=== PATIENT | male | born 1930 | race Caucasian/White ===

== ENCOUNTER 2016-08-30 12:56 | Emergency (ER) | payer OTHER, BC ==
--- NOTE | 2016-08-30 13:21 | UCPHY ---
H & P Patient Type: Established Chief Complaint Nursing Narrative: congestion and cough started on wednesday, denies fevers, wheezing per daughter, states increased confusion and weakness, decreased appetite. Time Seen by Provider: 08/30/16 13:19 HPI/ROS: 86-year-old male presents from a correction with his daughter for complaint of cough, nasal congestion generalized fatigue of approximately 4-5 days duration. Review of systems Patient with generalized fatigue, unable to give his own review of systems Primarily taken from his daughter No current fever no current respiratory distress Source: Patient, Family Exam Limitations: Clinical condition - Personal History Current Tetanus/Diphtheria Vaccine: Yes - Medical/Surgical History Hx Asthma: No Hx Chronic Respiratory Disease: No Hx Diabetes: No Hx Cardiac Disease: Yes Hx Renal Disease: Yes Hx Cirrhosis: No Hx Alcoholism: No Hx HIV/AIDS: No Hx Splenectomy or Spleen Trauma: No Other PMH: Colitis, CKD stage3, Chronic sinus, HTN, Cardiac stents x2, Essential tremor, CVA, arthrisis, Color blind, RED CL[place] - Family History Significant Family History: No pertinent family hx - Social History Smoking Status: Never smoked Alcohol Use: None Drug Use: None Additional Social History: Lives in a correction - Physical Exam Exam: 86-year-old male alert, no respiratory distress, afebrile Atraumatic normocephalic OP dry mucosa no exudate no erythema in throat Right nares-some crusted blood no erythema no septal hematoma, left nares with off-white yellowish mucus Neck supple, no lymphadenopathy Lungs clear to auscultation bilaterally Heart regular rate and rhythm without murmur rub or gallop Abdomen nondistended bowel sounds present soft nontender Extremities are no edema, chronic venous stasis discoloration, calves nontender Skin no rash Neuro alert, at baseline per daughter Gait intact, moving all 4s Constitutional: Initial Vital Signs Temperature (C) 36.4 C 08/30/16 13:09 Heart Rate 65 08/30/16 13:09 Respiratory Rate 28 H 08/30/16 13:09 Blood Pressure 166/57 H 08/30/16 13:09 O2 Sat (%) 97 08/30/16 13:09 O2 Delivery Mode Room Air Allergies/Adverse Reactions: ibuprofen [From Motrin] Allergy (Verified 08/30/16 13:08) Home Medications: Medication Instructions Recorded Acetaminophen 08/30/16 Allopurinol 08/30/16 Aspirin 08/30/16 Atorvastatin Calcium 08/30/16 Azelastine HCl 08/30/16 Biotin 08/30/16 Cristopher-Gest 08/30/16 Calcitriol 08/30/16 Certavite Sr-Antioxidant Tab 08/30/16 Erythromycin 08/30/16 Feosol 08/30/16 Flonase Nasal [place] 08/30/16 Folic Acid 08/30/16 Furosemide 08/30/16 Losartan Potassium 08/30/16 Miralax 17 gm (*) 08/30/16 Omeprazole 08/30/16 Potassium Chloride 08/30/16 Ranitidine HCl 08/30/16 Tamsulosin HCl 08/30/16 Visine (*) 08/30/16 levOFLOXACIN [Levaquin] 250 mg PO DAILY #8 tablet 08/30/16 Medical Decision Making - Diagnostics Imaging: Chest x-ray consistent with bronchitis cannot rule out an early left lower lobe infiltrate ED Course/Re-evaluation: Patient seen and evaluated for cough, nasal congestion of approximately 4-5 days duration and generalized fatigue as well as a poor appetite Differential diagnosis Bronchitis, influenza, pneumonia, viral syndrome Laboratories CBC within normal limits for this patient with chronic anemia BMP also baseline for his chronic kidney disease Influenza negative Chest x-ray consistent with bronchitis Patient's exam significant for a good oxygen saturation on room air as well as lungs clear to auscultation bilaterally positive nasal discharge Impression Bronchitis with mild dehydration Cannot rule out an early pneumonia Plan Given 250 cc normal saline in the urgent care Discharge home to correction with prescription for Levaquin 500 mg today, 250 mg for the next 6 days Dose adjusted based on GFR of 23 In family advised to have follow-up with primary care physician in the next 1-2 days - Data Points Laboratory Results: Laboratory Results 08/30/16 13:45 08/30/16 13:45 08/30/16 08/30/16 14:10 13:45 WBC 5.67 10^3/uL (3.80-9.50) RBC 2.88 L 10^6/uL (4.40-6.38) Hgb 9.5 L g/dL (13.7-17.5) Hct 27.5 L % (40.0-51.0) MCV 95.5 fL (81.5-99.8) MCH 33.0 pg (27.9-34.1) MCHC 34.5 g/dL (32.4-36.7) RDW 15.1 % (11.5-15.2) Plt Count 193 10^3/uL (150-400) MPV 9.7 fL (8.7-11.7) Neut % (Auto) 67.3 % (39.3-74.2) Lymph % (Auto) 21.5 % (15.0-45.0) [place] % (Auto) 7.9 % (4.5-13.0) Eos % (Auto) 1.8 % (0.6-7.6) Baso % (Auto) 0.4 % (0.3-1.7) Nucleat RBC Rel Count 0.0 % (0.0-0.2) Absolute Neuts (auto) 3.82 10^3/uL (1.70-6.50) Absolute Lymphs (auto) 1.22 10^3/uL (1.00-3.00) Absolute Monos (auto) 0.45 10^3/uL (0.30-0.80) Absolute Eos (auto) 0.10 10^3/uL (0.03-0.40) Absolute Basos (auto) 0.02 10^3/uL (0.02-0.10) Absolute Nucleated RBC 0.00 10^3/uL (0-0.01) Immature Gran % 1.1 % (0.0-1.1) Immature Gran # 0.06 10^3/uL (0.00-0.10) Sodium 138 mEq/L (134-144) Potassium 4.0 mEq/L (3.5-5.2) Chloride 103 mEq/L (97-110) Carbon Dioxide 23 mEq/l (22-31) Anion Gap 12 mEq/L (8-16) BUN 43 H mg/dL (7-23) Creatinine 2.6 H mg/dL (0.7-1.3) Estimated GFR 23 Glucose 96 mg/dL (70-100) Calcium 9.9 mg/dL (8.5-10.4) Magnesium 2.0 mg/dL (1.6-2.3) Total Bilirubin 1.4 mg/dL (0.1-1.4) AST 21 IU/L (17-59) ALT 16 L IU/L (21-72) Alkaline Phosphatase 95 IU/L (38-126) Total Protein 6.3 g/dL (6.3-8.2) Albumin 3.4 L g/dL (3.5-5.0) Urine Color YELLOW Urine Appearance CLEAR Urine pH 5.5 (5.0-7.5) Ur Specific [place] 1.020 (1.002-1.030) Urine Protein 2+ H (NEGATIVE) Urine Ketones NEGATIVE (NEGATIVE) Urine Blood TRACE H (NEGATIVE) Urine Nitrate NEGATIVE (NEGATIVE) Urine Bilirubin NEGATIVE (NEGATIVE) Urine Urobilinogen 0.2 EU (0.2-1.0) Ur Leukocyte Esterase NEGATIVE (NEGATIVE) Urine RBC 1-3 /hpf (0-3) Urine WBC 0-1 /hpf (0-3) Ur Epithelial Cells TRACE /lpf (NONE-1+) Amorphous Sediment TRACE /hpf (NONE-1+) Hyaline Casts 10-15 H /lpf (0-1) Granular Casts 1-3 H /lpf (0-1) Urine Mucus 1+ /lpf (NONE-1+) Urine Glucose NEGATIVE (NEGATIVE) Influenza Typ A,B (DFA) NEGATIVE FOR FLU (NEGATIVE) Medications Given: Discontinued Medications Sodium Chloride (Ns) 250 mls @ 0 mls/hr IV ONCE ONE PRN Reason: TKO Stop: 08/30/16 14:36 Last Admin: 08/30/16 14:40 Dose: 250 mls Departure - Departure Disposition: Home, Routine, Self-Care Clinical Impression: Bronchitis, Mild dehydration Condition: Good Instructions: Acute Bronchitis (ED) Additional Instructions: Follow up with PCP in 1-2 days. Referrals: Jovani Kenyon MD [Primary Care Provider] - As per Instructions Prescriptions: levOFLOXACIN [Levaquin] 250 mg PO DAILY #8 tablet - PQRS PQRS Measurement: 134: Depression screening and followup, PRIME MD-PHQ2 (12 years and older) Over the last 2 weeks, how often have you been bothered by any of the following problems? 1. Feeling down, depressed, or hopeless? 2. Little interest or pleasure in doing things? Patient answered no to both 1 and 2 130: Documentation of medications. Reviewed all patient medications, doses, route and frequency. 226: Do you smoke? No. 47: 65 and older: Advanced care planning. Patient designates surrogate decision maker as spouse.. [Patient has advanced directive.] 51: 18 years old and older with diagnosis of COPD, spirometry performance. [Patient has no history of COPD 52: 18 years old and older with COPD and symptoms of COPD or FEV1<60% predicted prescribed a B Agonist. [Spirometry not performed; equipment not available.]
[2016-08-30 13:55] LABS: % IMMATURE GRANULYOCYTES 1.1 % (0.0-1.1); ABSOLUTE IMMATURE GRANULOCYTES 0.06 10^3/uL (0.00-0.10); ADD DIFF? NO; ADD MORPH? NO; ADD SCAN? NO; ATYPICAL LYMPHOCYTE FLAG 20 (0-99); FRAGMENT RBC FLAG 0 (0-99); HEMATOCRIT 27.5 % (40.0-51.0); HEMOGLOBIN 9.5 g/dL (13.7-17.5); LEFT SHIFT FLG 10 (0-99); LIPEMIA HEMOLYSIS FLAG 90 (0-99); MEAN CELL HEMOGLOBIN CONCENTR. 34.5 g/dL (32.4-36.7); MEAN CELL VOLUME 95.5 fL (81.5-99.8); MEAN PLATELET VOLUME 9.7 fL (8.7-11.7); PLATELET CLUMPS FLAG 0 (0-99); PLATELET COUNT 193 10^3/uL (150-400); RED BLOOD CELL COUNT 2.88 10^6/uL (4.40-6.38); RED CELL DISTRIBUTION WIDTH 15.1 % (11.5-15.2)
[2016-08-30 14:08] LABS: ALBUMIN 3.4 g/dL (3.5-5.0); BILIRUBIN,TOTAL 1.4 mg/dL (0.1-1.4); CALCIUM 9.9 mg/dL (8.5-10.4); CREATININE 2.6 mg/dL (0.7-1.3); TOTAL PROTEIN 6.3 g/dL (6.3-8.2)
[2016-08-30 14:14] LABS: COLOR YELLOW; LEUKOCYTE ESTERASE,URINE NEGATIVE (NEGATIVE); NITRITE,URINE NEGATIVE (NEGATIVE); PH,URINE 5.5 (5.0-7.5)
[2016-08-30 14:23] LABS: MUCUS 1+ /lpf (NONE-1+)
[2016-08-30 14:24] LABS: AMORPHOUS TRACE /hpf (NONE-1+); WBC,URINE 0-1 /hpf (0-3)
--- NOTE | 2016-08-30 14:30 | DX ---
Chest, PA and Lateral Upright Views August 30, 2016 at 1:54 p.m. Clinical History: 86-year-old male with cough, congestion, and difficulty breathing for one week. Comparison Study: Chest, dated July 14, 2016. Findings: There is a mild upper dextrothoracic scoliosis. The cardiac silhouette is mildly enlarged, however, is stable. There is mural calcification of the aortic knob. There is a possible mild infiltr ate at the posteromedial left lung base. There is no pleural effusion, peripheral interstitial edema, or pneumothorax. There is some mild right-sided perihilar bronchial wall thickening. 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 Impression: 1. Cardiomegaly without congestive heart failure. 2. Mild perihilar bronchitis. 3. Possible mild infiltrate at the posterior left lung base.
[2016-08-30] MEDS ORDERED: NS 250 ML IV ONE (14:35)
[2016-08-30 15:17] VITALS: BP 147/67; PULSE 58; RESP 16; TEMP 97.9; O2SAT 96
== END 2016-08-30 15:16 | disposition home or self-care (01) ==
LOC: CED 12:56
DX: J20.9 Acute bronchitis, unspecified (principal)
CPT/HCPCS: 71020; G0463; 80053-PO; 81003-PO; 81015-PO; 83735-PO; 85025-PO; 87400-PO; 99215-PO

== ENCOUNTER 2016-09-15 11:03 | Observation (INO) | payer OTHER, BC ==
[2016-09-15] MEDS ORDERED: NS 500 ML IV ONE (11:16)
--- NOTE | 2016-09-15 11:17 | CPEKG ---
Heart Rate: 63 RR Interval: 952 P-R Interval: 352 QRSD Interval: 92 QT Interval: 448 QTC Interval: 459 P [place]: 0 QRS [place]: -28 T Wave [place]: -4 EKG Severity - ABNORMAL ECG - EKG Impression: SINUS RHYTHM EKG Impression: FIRST DEGREE AV BLOCK EKG Impression: BORDERLINE LEFT AXIS DEVIATION EKG Impression: LOW VOLTAGE IN FRONTAL LEADS EKG Impression: BORDERLINE T ABNORMALITIES, INFERIOR LEADS Electronically Signed By: Kofi Woods 15-Sep-2016 12:50:34
[2016-09-15 11:19] LABS: % IMMATURE GRANULYOCYTES 2.7 % (0.0-1.1); ABSOLUTE IMMATURE GRANULOCYTES 0.25 10^3/uL (0.00-0.10); ADD DIFF? NO; ADD MORPH? NO; ADD SCAN? NO; ATYPICAL LYMPHOCYTE FLAG 0 (0-99); FRAGMENT RBC FLAG 0 (0-99); HEMATOCRIT 30.1 % (40.0-51.0); HEMOGLOBIN 10.4 g/dL (13.7-17.5); LEFT SHIFT FLG 20 (0-99); LIPEMIA HEMOLYSIS FLAG 90 (0-99); MEAN CELL HEMOGLOBIN 32.9 pg (27.9-34.1); MEAN CELL HEMOGLOBIN CONCENTR. 34.6 g/dL (32.4-36.7); MEAN CELL VOLUME 95.3 fL (81.5-99.8); MEAN PLATELET VOLUME 9.4 fL (8.7-11.7); PLATELET CLUMPS FLAG 0 (0-99); PLATELET COUNT 235 10^3/uL (150-400); RED BLOOD CELL COUNT 3.16 10^6/uL (4.40-6.38); RED CELL DISTRIBUTION WIDTH 15.2 % (11.5-15.2)
--- NOTE | 2016-09-15 11:30 | EDPHY ---
H & P HPI/ROS: CHIEF COMPLAINT: Syncope HISTORY OF PRESENT ILLNESS: 86-year-old male presents after a syncopal episode. She was sitting at the dining table and began to feel nauseated. He then developed lightheadedness and a family member tried to assist him to stand. She during the attempt to stand, he became very pale and then had a witnessed syncopal episode. Brief episode of unresponsiveness, and no confusion afterwards. He now complains of vague abdominal pain and persistent nausea. No chest pain or shortness of breath. REVIEW OF SYSTEMS: Constitutional: No fever, no chills Eyes: No visual changes ENT: No sore throat Respiratory: No cough, no shortness of breath Cardiac: No chest pain Genitourinary: no dysuria Musculoskeletal: No leg pain or swelling Skin: No rash Neurological: No headache Psychiatric: No depression Past Medical/Surgical History: Chronic kidney disease Coronary artery disease Social History: Lives at [facility] Smoking Status: Never smoked Physical Exam: General Appearance: Alert, smiling and talkative Eyes: Pupils equal and round, no conjunctival pallor ENT, Mouth: Mucous membranes moist Neck: Normal inspection Respiratory: Lungs are clear to auscultation Cardiovascular: Regular rate and rhythm Gastrointestinal: Abdomen is soft, left lower quadrant tenderness Neurological: Alert, oriented x3, cranial nerves II through XII intact, motor 5/ 5, sensory intact to light touch Skin: Warm and dry, no rash Extremities: Nontender, no pedal edema Psychiatric: Mood and affect normal Constitutional: Initial Vital Signs Temperature (C) 36.4 C 09/15/16 11:12 Heart Rate 69 09/15/16 11:12 Respiratory Rate 14 09/15/16 11:12 Blood Pressure 154/78 H 09/15/16 11:12 O2 Sat (%) 96 09/15/16 11:12 O2 Delivery Mode Room Air Allergies/Adverse Reactions: ibuprofen [From Motrin] Allergy (Verified 09/15/16 11:12) Home Medications: Medication Instructions Recorded Acetaminophen [Tylenol ES 500 mg 500 mg PO Q6 PRN 09/15/16 (*)] Allopurinol [Allopurinol 300 MG 300 mg PO DAILY 09/15/16 (RX)] Aspirin [Aspirin 81mg (*)] 81 mg PO HS 09/15/16 Atorvastatin Calcium [Lipitor 10 10 mg PO HS 09/15/16 mg (*)] Azelastine/Fluticasone [Dymista 1 spray EACHNARE BID 09/15/16 Nasal [place]] Calcitriol [Calcitriol (*)] 0.25 mcg PO MOWEFR@09 09/15/16 Ferrous Sulfate [Ferrous Sulf 325 325 mg PO DAILY 09/15/16 MG (*)] Furosemide [Lasix 20 MG (*)] 20 mg PO DAILY 09/15/16 Herbals/Supplements -Info Only 1 ea PO DAILY 09/15/16 Losartan Potassium [Cozaar 50 mg 50 mg PO DAILY 09/15/16 (*)] Multivitamins [Multivitamin (*)] 1 each PO DAILY 09/15/16 Omeprazole 20 mg PO DAILY 09/15/16 Polyethylene Glycol 3350 [Miralax 17 gm PO HS 09/15/16 17 gm (*)] Potassium Cl [Klor-Con] 10 meq PO Q2D 09/15/16 Propranolol HCl [Inderal 20mg (*)] 20 mg PO BID 09/15/16 Ranitidine HCl 300 mg PO HS 09/15/16 Tamsulosin HCl [Flomax 0.4 MG (*)] 0.4 mg PO Q2D 09/15/16 amLODIPine BESYLATE [Norvasc 2.5 2.5 mg PO DAILY@12 09/15/16 mg (*)] Medical Decision Making - Diagnostics EKG Interpretation: EKG interpreted by me reveals first-degree AV block, sinus rhythm, low voltage. Imaging: CT scan of the abdomen and pelvis read by the radiologist reveals acute diverticulitis. ED Course/Re-evaluation: IV normal saline 500 mL. Given significant left lower quadrant tenderness, CT scan of the abdomen pelvis IV contrast was obtained and revealed acute diverticulitis. Given advanced age, syncopal episode and diverticulitis, I will admit him to the hospitalist service. He is able to tolerate oral fluids, so Cipro and Flagyl orally were given. The hospitalist service was consulted for admission. Differential Diagnosis: Differential diagnosis includes though is not limited to cardiac dysrhythmia, CVA, TIA, GI bleed, sepsis, hypoglycemia. - Data Points Laboratory Results: Laboratory Results 09/15/16 11:00 09/15/16 11:00 09/15/16 11:00 WBC 9.23 10^3/uL (3.80-9.50) RBC 3.16 L 10^6/uL (4.40-6.38) Hgb 10.4 L g/dL (13.7-17.5) Hct 30.1 L % (40.0-51.0) MCV 95.3 fL (81.5-99.8) MCH 32.9 pg (27.9-34.1) MCHC 34.6 g/dL (32.4-36.7) RDW 15.2 % (11.5-15.2) Plt Count 235 10^3/uL (150-400) MPV 9.4 fL (8.7-11.7) Neut % (Auto) 70.7 % (39.3-74.2) Lymph % (Auto) 17.4 % (15.0-45.0) [place] % (Auto) 6.5 % (4.5-13.0) Eos % (Auto) 1.7 % (0.6-7.6) Baso % (Auto) 1.0 % (0.3-1.7) Nucleat RBC Rel Count 0.0 % (0.0-0.2) Absolute Neuts (auto) 6.52 H 10^3/uL (1.70-6.50) Absolute Lymphs (auto) 1.61 10^3/uL (1.00-3.00) Absolute Monos (auto) 0.60 10^3/uL (0.30-0.80) Absolute Eos (auto) 0.16 10^3/uL (0.03-0.40) Absolute Basos (auto) 0.09 10^3/uL (0.02-0.10) Absolute Nucleated RBC 0.00 10^3/uL (0-0.01) Immature Gran % 2.7 H % (0.0-1.1) Immature Gran # 0.25 H 10^3/uL (0.00-0.10) Sodium 140 mEq/L (134-144) Potassium 5.1 mEq/L (3.5-5.2) Chloride 108 mEq/L (97-110) Carbon Dioxide 22 mEq/l (22-31) Anion Gap 10 mEq/L (8-16) BUN 44 H mg/dL (7-23) Creatinine 2.4 H mg/dL (0.7-1.3) Estimated GFR 26 Glucose 104 H mg/dL (70-100) Calcium 9.7 mg/dL (8.5-10.4) Medications Given: Discontinued Medications Amlodipine Besylate (Norvasc) 2.5 mg PO EDNOW ONE Stop: 09/15/16 13:06 Last Admin: 09/15/16 13:33 Dose: 2.5 mg Ciprofloxacin (Cipro) 500 mg PO EDNOW ONE PRN Reason: Protocol Stop: 09/15/16 14:02 Last Admin: 09/15/16 14:26 Dose: 500 mg Sodium Chloride (Ns) 500 mls @ 0 mls/hr IV ONCE ONE PRN Reason: As Directed Stop: 09/15/16 11:17 Last Admin: 09/15/16 11:27 Dose: 500 mls Metronidazole (Flagyl) 500 mg PO EDNOW ONE PRN Reason: Protocol Stop: 09/15/16 14:03 Last Admin: 09/15/16 14:26 Dose: 500 mg Departure - Departure Disposition: [facility] Inpatient Acute Clinical Impression: Syncope Qualifiers: Qualifier Code: (R55) Syncope and collapse Diverticulitis large intestine Qualifiers: Qualifier Code: (K57.32) Diverticulitis of large intestine without perforation or abscess without bleeding Condition: Fair
[2016-09-15 11:33] LABS: ANION GAP 10 mEq/L (8-16); CALCIUM 9.7 mg/dL (8.5-10.4); CARBON DIOXIDE 22 mEq/l (22-31); CHLORIDE 108 mEq/L (97-110); CREATININE 2.4 mg/dL (0.7-1.3); GLOMERULAR FILTRATION RATE 26; GLUCOSE 104 mg/dL (70-100); POTASSIUM 5.1 mEq/L (3.5-5.2); SODIUM 140 mEq/L (134-144)
--- NOTE | 2016-09-15 12:59 | CT ---
CT Scan of the Abdomen and Pelvis (Without Contrast) Clinical Indications: Left lower quadrant pain, syncope, chronic renal disease Comparison: None Technique: Multidetector helical CT imaging was performed from the diaphragm to the symphysis pubis . Dose reduction techniques were utilized. Findings: Abdomen: The lung bases are clear, and there is no pleural or pericardial effusion. There are 3 round left renal lesions that likely represent incidental cysts. There is atherosclerotic calcification of a normal sized abdominal aorta. The liver is normal. The biliary ducts and gallbla dder are unremarkable. The pancreas and spleen are normal. The adrenal glands and right kidney are normal. No adenopathy and no masses are found. No aneurysm of the abdominal aorta.No ascites or titi dence of bowel obstruction. Pelvis: There is fecal material filling the transverse colon, descending colon , sigmoid colon and re ctum. There is diverticulosis dominant in the sigmoid colon. There is edema associated with an inflam ed diverticulum at the junction of the descending and sigmoid colons. The colon proximal to this area is not distended. There is a small amount of local free fluid in the posterior paracolic gutter in t he upper pelvis. There is no free air. No abscess is identified. The urinary bladder is unremarkable. No free fluid in the pelvis. No masses are identified. All the small bowel loops are normal.No evidence for pelvic abscess. There is prostatomegaly with extrinsic u rinary bladder base indentation. There is no bladder diverticula formation. Impression: 1. Sigmoid diverticulitis without evidence for abscess formation. 2. Prostatomegaly. 3. Atherosclerotic disease. A message was left for Dr. Hendrix at 12:57 p.m. General information for patients regarding this examination can be found at [email or web address]. If you have questions or comments about this report, please contact me at [phone] (hospital) or [phone] (cell).
[2016-09-15] MEDS ORDERED: CIPROFLOXACIN 500 MG TAB PO ONE (14:01)
[2016-09-15] MEDS ORDERED: metroNIDAZOLE 500 MG TAB PO ONE (14:02)
[2016-09-15] MEDS ORDERED: ACETAMINOPHEN 500 MG TAB PO PRN (15:02)
[2016-09-15] MEDS ORDERED: oxyCODONE IR 5 MG TAB PO PRN (15:04)
[2016-09-15] MEDS ORDERED: ONDANSETRON 4 MG/2 ML VIAL IVP PRN (15:04)
[2016-09-15] MEDS ORDERED: ONDANSETRON DISINTEGRATING 4 MG TAB PO PRN (15:04)
[2016-09-15] MEDS ORDERED: NS 1,000 ML IV SCH (15:15)
--- NOTE | 2016-09-15 16:56 | GHP ---
[f rep st] HISTORY AND PHYSICAL DATE OF ADMISSION: 09/15/2016 HISTORY OF PRESENT ILLNESS: The patient is a pleasant, 86-year-old gentleman with a history of chronic kidney disease and hypertension who presents with an episode of syncope. He has had syncope before. It sounds like he is eating breakfast. He just finished his oatmeal and is complaining of stomach pain. He had pain and then he had subsequent loss of consciousness. It sounds like he possibly lost complete consciousness, possibly did, and this history is a little bit unclear as taken from his friend. He denies chest pain, shortness of breath. He had some abdominal pain. He had a bowel movement this morning that was normal. He has no previous known history of diverticulitis. REVIEW OF SYSTEMS: A complete 10-point review of systems was conducted and negative, except as noted in the HPI. PAST HISTORY: 1. Chronic kidney disease. 2. Syncope. 3. Coronary artery disease with stents in 1996. 4. Hypertension. 5. SVT. 6. Hyperlipidemia. 7. Mitral regurgitation. 8. History of TIA. 9. Essential tremor. 10. BPH. ALLERGIES: None. HOME MEDICATIONS: 1. Ranitidine. 2. Propranolol. 3. MiraLAX. 4. Multivitamin. 5. Ferrous sulfate. 6. Calcitriol. 7. Tamsulosin. 8. Potassium chloride. 9. Omeprazole. 10. Losartan. 11. Lasix. 12. Dymista nasal spray. 13. Atorvastatin. 14. Aspirin. 15. Allopurinol. 16. Acetaminophen. 17. Amlodipine. SOCIAL HISTORY: He recently relocated here from [place]. He lives at the [facility]. His daughter lives in [place]. Nonsmoker. Nondrinker. FAMILY HISTORY: Parents . PHYSICAL EXAM: PRESENTING VITAL SIGNS: Temperature 36.3, blood pressure 157/85 , pulse 72, breathing 18 times a minute, 95 on room air. GENERAL: No acute distress. HEENT: Sclerae anicteric. Oropharynx clear. Mucous membranes moist. NECK: Supple. No lymphadenopathy or JVD. LUNGS: Clear to auscultation bilaterally. HEART: S1, S2. Without murmur. ABDOMEN: Soft. There is some left lower quadrant tenderness without rebound. LOWER EXTREMITIES : No edema. There are chronic venous stasis changes. SKIN: Without rash. NEUROLOGIC: Exam is notable for an essential tremor, which is not new. LABS: White count 9.2, hematocrit 30, platelets are 235,000, sodium 140, potassium 5.1, chloride 108, bicarbonate 22, BUN 44, creatinine 2.2. This is below his baseline in our system. Glucose 104. Abdominal pelvis CT, interpreted by me, shows sigmoid diverticulitis with abscess formation as well as prostatomegaly. EKG, interpreted by me, shows sinus at 63 with left axis deviation. Normal intervals. No ST or T-wave changes. I have discussed the case with Dr. Simi Hendrix. ASSESSMENT/PLAN: An 86-year-old gentleman with syncope and diverticulitis. 1. Diverticulitis. This is mild. Cipro and Flagyl were started in the emergency department orally. I will continue these. He has no peritoneal signs. 2. Syncope. This sounds like vasovagal syncope. We will follow him on the cardiac monitor technician without further workup. He had an echocardiogram performed on the 14 July 2016, here at this hospital, and those results show normal EF with diastolic dysfunction and no significant valvular disease. 3. Code status. DNR. 4. Renal: The patient has a baseline abnormal creatinine. Continue his medications, hold his Lasix, and his allopurinol dose should be decreased. 5. Prophylaxis, subcutaneous heparin. 6. Code: Do Not Resuscitate. 7. Disposition: Inpatient status. /[id number]/MODL MTDD
[2016-09-15] MEDS: CIPROFLOXACIN 500 MG TAB PO SCH (20:04)
[2016-09-15] MEDS: PROPRANOLOL HCL 20 MG TAB PO SCH (20:05)
[2016-09-15] MEDS: Azelastine/Fluticasone [Dymista Nasal Spray] 1 SPRAY EACHNARE SCH ×2 (20:15→20:56)
[2016-09-15] MEDS ORDERED: POLYETHYLENE GLYCOL 3350 17 GM PKT PO SCH (21:00)
[2016-09-15] MEDS ORDERED: ASPIRIN 81 MG CHEWABLE TAB PO SCH (21:00)
[2016-09-15] MEDS ORDERED: ATORVASTATIN CALCIUM 10 MG TAB PO SCH (21:00)
[2016-09-15] MEDS ORDERED: FAMOTIDINE 20 MG TAB PO SCH (21:00)
[2016-09-15] MEDS: metroNIDAZOLE 500 MG TAB PO SCH (22:33)
[2016-09-15] MEDS: HEPARIN 5,000 UNIT/0.5 ML SYR SC SCH (22:34)
[2016-09-16 04:20] VITALS: PULSE 72; RESP 16
[2016-09-16 04:58] LABS: ABSOLUTE IMMATURE GRANULOCYTES 0.12 10^3/uL (0.00-0.10); ADD DIFF? NO; ADD MORPH? NO; ADD SCAN? NO; ATYPICAL LYMPHOCYTE FLAG 20 (0-99); FRAGMENT RBC FLAG 0 (0-99); HEMATOCRIT 24.7 % (40.0-51.0); HEMOGLOBIN 8.6 g/dL (13.7-17.5); LEFT SHIFT FLG 10 (0-99); LIPEMIA HEMOLYSIS FLAG 90 (0-99); MEAN CELL HEMOGLOBIN 32.7 pg (27.9-34.1); MEAN CELL HEMOGLOBIN CONCENTR. 34.8 g/dL (32.4-36.7); MEAN CELL VOLUME 93.9 fL (81.5-99.8); MEAN PLATELET VOLUME 9.4 fL (8.7-11.7); PLATELET CLUMPS FLAG 0 (0-99); PLATELET COUNT 171 10^3/uL (150-400); RED BLOOD CELL COUNT 2.63 10^6/uL (4.40-6.38); RED CELL DISTRIBUTION WIDTH 15.3 % (11.5-15.2)
[2016-09-16] MEDS: metroNIDAZOLE 500 MG TAB PO SCH ×2 (05:19→12:11)
[2016-09-16 05:24] LABS: ANION GAP 10 mEq/L (8-16); CALCIUM 9.1 mg/dL (8.5-10.4); CARBON DIOXIDE 19 mEq/l (22-31); CHLORIDE 111 mEq/L (97-110); CREATININE 2.4 mg/dL (0.7-1.3); GLOMERULAR FILTRATION RATE 26; GLUCOSE 78 mg/dL (70-100); POTASSIUM 4.3 mEq/L (3.5-5.2); SODIUM 140 mEq/L (134-144)
[2016-09-16] MEDS: HEPARIN 5,000 UNIT/0.5 ML SYR SC SCH (05:28)
[2016-09-16] MEDS ORDERED: PANTOPRAZOLE SODIUM 40 MG TAB PO SCH (09:00)
[2016-09-16] MEDS ORDERED: MULTIVITAMINS 1 EACH TAB PO SCH (09:00)
[2016-09-16] MEDS ORDERED: LOSARTAN POTASSIUM 50 MG TAB PO SCH (09:00)
[2016-09-16] MEDS ORDERED: Herbals/Supplements -Info Only PO SCH (09:00)
[2016-09-16] MEDS ORDERED: CALCITRIOL 0.25 MCG CAP PO SCH (09:00)
[2016-09-16] MEDS ORDERED: FERROUS SULFATE 325 MG TAB PO SCH (09:00)
[2016-09-16] MEDS: PROPRANOLOL HCL 20 MG TAB PO SCH (09:18)
[2016-09-16] MEDS: CIPROFLOXACIN 500 MG TAB PO SCH (09:19)
[2016-09-16] MEDS: Azelastine/Fluticasone [Dymista Nasal Spray] 1 SPRAY EACHNARE SCH (09:21)
[2016-09-16 09:26] VITALS: TEMP 98.7; O2SAT 98
--- NOTE | 2016-09-16 10:18 | GDS ---
[f rep st] DISCHARGE SUMMARY DIAGNOSES: 1. Syncope. 2. Sigmoid diverticulitis without complication. 3. Chronic kidney disease. 4. Coronary artery disease status post stents. 5. Hypertension. 6. History of supraventricular tachycardia. 7. Hyperlipidemia. 8. Mitral regurgitation. 9. Hyperlipidemia. 10. History of transient ischemic attack. 11. Essential tremor. 12. Benign prostatic hypertrophy. HOSPITAL COURSE: An 86-year-old man who presented with syncope. This felt likely to be vasovagal in the setting of diverticulitis. He had no noted complications from diverticulitis on his CT scan. S tarted on Flagyl and Cipro. On the day of discharge, he has worked well with physical therapy. He is at his baseline. He is eat ing and drinking and having normal bowel movements. Pain in his abdomen is essentially resolved. I will continue him on Cipro and Flagyl for an additional 10 days. I have given him a recommendation f or VSL #3 for probiotic. I have given a referral to see Dr. Sheppard for GI after discharge. He will be watched over very closely at [facility] where he permanently resides. His daughter is involved in his care and is comfortable with this discharge plan. /[id number]/MODL
[2016-09-16 12:14] VITALS: BP 138/61
[2016-09-17] MEDS ORDERED: TAMSULOSIN HCL 0.4 MG CAP PO SCH (09:00)
[2016-09-17] MEDS ORDERED: POTASSIUM CL 10 MEQ TAB PO SCH (09:00)
== END 2016-09-16 13:26 | disposition home or self-care (01) ==
LOC: EDUNIT# → INTOOBSV 14:07 → F3E 14:42
PROVIDERS: ADMIT Hospitalist; ATTEND Student in an Organized Health Care Education/Training Program
DX: R55 Syncope and collapse (principal); K57.32 Diverticulitis of large intestine without perforation or abscess without bleeding; N18.9 Chronic kidney disease, unspecified; I12.9 Hypertensive chronic kidney disease with stage 1 through stage 4 chronic kidney disease, or unspecified chronic kidney disease; I25.10 Atherosclerotic heart disease of native coronary artery without angina pectoris; Z95.5 Presence of coronary angioplasty implant and graft; G25.0 Essential tremor; N40.0 Benign prostatic hyperplasia without lower urinary tract symptoms; Z87.820 Personal history of traumatic brain injury
CPT/HCPCS: 74176; 93005; 96360; 97161; 97165; 99285; G8978; G8979; G8980; G8987; G8988; G8989

== ENCOUNTER 2016-10-03 00:17 | Inpatient (IN) | payer OTHER, BC ==
[2016-10-03] MEDS ORDERED: NS 1,000 ML IV ONE ×2 (01:08→01:37)
--- NOTE | 2016-10-03 01:13 | EDPHY ---
H & P Stated Complaint: diverticulitis Source: Patient, Family Exam Limitations: No limitations - Personal History Current Tetanus Diphtheria and Acellular Pertussis (TDAP): Unsure - Medical/Surgical History Hx Asthma: No Hx Chronic Respiratory Disease: No Hx Diabetes: No Hx Cardiac Disease: Yes Hx Renal Disease: Yes Hx Cirrhosis: No Hx Alcoholism: No Hx HIV/AIDS: No Hx Splenectomy or Spleen Trauma: No Other PMH: Colitis, CKD stage3, Chronic sinus, HTN, Cardiac stents x2, Essential tremor, CVA, arthrisis, Color blind, [place], Gout, COPD, BPH - Social History Smoking Status: Never smoked HPI/ROS: CHIEF COMPLAINT: Abdominal pain, vomiting, diarrhea HISTORY OF PRESENT ILLNESS: daughter at bedside reports that the patient was diagnosed with diverticulitis and colitis 2 weeks ago. He completed a course of Cipro and Flagyl last Wednesday. He was doing well and was seen by his GI PA earlier today. However after noon at some point he began having worsening abdominal pain. He also had vomiting and some diarrhea. The diarrhea actually has been present for several days. It is nonbloody. No fever. No chest pain or shortness of breath. No cough or congestion. No urinary complaints. Does have a history of chronic colitis as well. Pain is worse with palpation and movement. He feels very ill. No other associated complaints or modifying factors. PREVIOUS ABDOMINAL SURGERIES/DIAGNOSES: diverticulitis and colitis. GI physician Dr. Sheppard REVIEW OF SYSTEMS: Ten systems reviewed and are negative unless otherwise noted in the HPI EXAMINATION: General Appearance: Alert, no distress , sleeping but easily awakes. Head: normocephalic, atraumatic Eyes: Pupils equal and round, no conjunctival pallor or injection ENT, Mouth: Mucous membranes moist . Uvula midline. No erythema or edema Neck: Normal inspection, supple, non-tender Respiratory: Lungs are clear to auscultation. NO wheezing, rhonchi or crackles Cardiovascular: rate is 100 beats per minute, with sinus rhythm. NO murmur. Gastrointestinal: Abdomen is soft and Mildly tender in the left lower quadrant left upper quadrant. NO tympany or rigidity. No guarding. No CVA tenderness. Neurological: A&O, nonfocal, normal gait Skin: Warm and dry, no rash Extremities: Nontender, no pedal edema Psychiatric: Mood and affect normal DIFFERENTIAL DIAGNOSES: Including but not limited to Diverticulitis, colitis, sepsis, enteritis, gastritis, intra-abdominal abscess, perforated diverticulitis, C difficile colitis MDM: 1:10 a.m. abdominal pain with vomiting and diarrhea. He was recently diagnosed with diverticulitis and his daughter at bedside reports a history of colitis. He completed a course antibiotics last Wednesday. He was doing well until this afternoon when he abruptly changed. At that time he was noted to have vomiting and generalized abdominal pain that is worse than left lower quadrant. He has also had diarrhea this week. Upon my examination the patient has blood pressures that ranged from the 80 systolic to 99 systolic. He does appear ill to me. I have ordered a sepsis workup at this time. I will also have Dr. Prakash see this patient as soon as possible. 2:[address] findings were discussed with radiologist and Dr. Prakash. no significant abnormality noted. Laboratory studies are not yet fully returned. His blood pressure has improved with IV fluids. Awaiting urinalysis at this time. At this time, Dr. Prakash will assume care of the patient. We are awaiting laboratory studies for determination of final disposition, plan for admission to the hospital at this time. Please see her note for final disposition. SUPERVISION: Patient was evaluated in conjunction with the supervising physician. Please see their note for details. (Conor Dickinson) Constitutional: Initial Vital Signs Temperature (C) 97.5 F 10/03/16 00:41 Heart Rate 118 H 10/03/16 00:41 Respiratory Rate 20 10/03/16 00:41 Blood Pressure 97/67 L 10/03/16 00:41 O2 Sat (%) 96 10/03/16 00:41 O2 Delivery Mode Room Air Allergies/Adverse Reactions: ibuprofen [From Motrin] Allergy (Verified 10/03/16 00:40) Home Medications: Medication Instructions Recorded Aspirin [Aspirin 81mg (*)] 81 mg PO HS 09/15/16 Atorvastatin Calcium [Lipitor 10 10 mg PO HS 09/15/16 mg (*)] Azelastine/Fluticasone [Dymista 1 spray EACHNARE BID 09/15/16 Nasal [place]] Calcitriol [Calcitriol (*)] 0.25 mcg PO MOWEFR@09 09/15/16 Ferrous Sulfate [Ferrous Sulf 325 325 mg PO DAILY 09/15/16 MG (*)] Furosemide [Lasix 20 MG (*)] 20 mg PO DAILY@09/15/16 Herbals/Supplements -Info Only 1 ea PO DAILY 09/15/16 Losartan Potassium [Cozaar 50 mg 50 mg PO DAILY@09/15/16 (*)] Multivitamins [Multivitamin (*)] 1 each PO DAILY 09/15/16 Omeprazole 20 mg PO DAILY 09/15/16 Polyethylene Glycol 3350 [Miralax 17 gm PO HS 09/15/16 17 gm (*)] Potassium Cl [Klor-Con 10 meq (RX)] 10 meq PO Q2D 09/15/16 Propranolol HCl [Inderal 20mg (*)] 20 mg PO BID@09/15/16 Ranitidine HCl 300 mg PO HS 09/15/16 Tamsulosin HCl [Flomax 0.4 MG (*)] 0.4 mg PO Q2D@182909/15/16 amLODIPine BESYLATE [Norvasc 2.5 2.5 mg PO DAILY@09/15/16 mg (*)] Allopurinol [Allopurinol 300 MG 200 mg PO DAILY@182910/03/16 (RX)] Medical Decision Making ED Course/Re-evaluation: ED PA DICTATION I evaluated and participated in the management of the patient. I also evaluated the patient independently. My co-signature indicates that I have reviewed this chart and I agree with the findings and plan of care as documented. My personal H&P findings include: 86-year-old man brought in by ambulance after her vomiting and diarrhea with fecal incontinence which started suddenly. He was recently admitted for diverticulitis. He had been doing well until today. On arrival, he is hypotensive and tachycardic without a fever. His abdominal exam is benign. Labs were checked and were relatively unremarkable, CT scan performed shows no sign of recurrent diverticulitis. I feel he may have hypovolemia related to colitis sore gastroenteritis. We have ordered stool cultures including C diff. After 2 L fluid bolus his hypotension has improved. He will be admitted to the hospitalist service. I have discussed the case with Dr. Serrano. ([facility]) - Data Points Laboratory Results: Laboratory Results 10/03/16 00:15 10/03/16 00:15 10/03/16 01:11 Total Bilirubin 1.0 mg/dL mg/dL (0.1-1.4) Conjugated Bilirubin 0.5 mg/dL mg/dL (0.0-0.5) Unconjugated Bilirubin 0.5 mg/dL mg/dL (0.0-1.1) AST 28 IU/L IU/L (17-59) ALT 22 IU/L IU/L (21-72) Alkaline Phosphatase 110 IU/L IU/L (38-126) Total Protein 6.9 g/dL g/dL (6.3-8.2) Albumin 3.9 g/dL g/dL (3.5-5.0) Lipase 314.0 IU/L H IU/L (23-300) Medications Given: Discontinued Medications Enoxaparin Sodium (Lovenox) 30 mg SC DAILY JORDIN Stop: 04/01/17 08:59 Last Admin: 10/03/16 10:47 Dose: Not Given Sodium Chloride (Ns) 1,000 mls @ 0 mls/hr IV ONCE ONE PRN Reason: Wide Open Stop: 10/03/16 01:09 Last Admin: 10/03/16 01:19 Dose: 1,000 mls Sodium Chloride (Ns) 1,000 mls @ 0 mls/hr IV ONCE ONE PRN Reason: Wide Open Stop: 10/03/16 01:38 Last Admin: 10/03/16 01:38 Dose: 1,000 mls Departure - Departure Disposition: [facility] Inpatient Acute Clinical Impression: Hypotension Qualifiers: Hypotension type: unspecified hypotension type Qualified Code(s): I95.9 - Hypotension, unspecified Diarrhea Qualifiers: Diarrhea type: unspecified type Qualified Code(s): R19.7 - Diarrhea, unspecified Vomiting Qualifiers: Vomiting type: unspecified Vomiting Intractability: non-intractable Nausea presence: with nausea Qualified Code(s): R11.2 - Nausea with vomiting, unspecified Condition: Fair
[2016-10-03 01:20] LABS: % IMMATURE GRANULYOCYTES 1.8 % (0.0-1.1); ABSOLUTE IMMATURE GRANULOCYTES 0.21 10^3/uL (0.00-0.10); ADD DIFF? NO; ADD MORPH? NO; ADD SCAN? NO; ATYPICAL LYMPHOCYTE FLAG 10 (0-99); FRAGMENT RBC FLAG 0 (0-99); HEMATOCRIT 34.6 % (40.0-51.0); HEMOGLOBIN 11.8 g/dL (13.7-17.5); LEFT SHIFT FLG 10 (0-99); LIPEMIA HEMOLYSIS FLAG 90 (0-99); MEAN CELL HEMOGLOBIN 32.8 pg (27.9-34.1); MEAN CELL HEMOGLOBIN CONCENTR. 34.1 g/dL (32.4-36.7); MEAN CELL VOLUME 96.1 fL (81.5-99.8); MEAN PLATELET VOLUME 9.7 fL (8.7-11.7); PLATELET CLUMPS FLAG 10 (0-99); PLATELET COUNT 233 10^3/uL (150-400); RED CELL DISTRIBUTION WIDTH 15.5 % (11.5-15.2)
[2016-10-03 01:22] LABS: ANION GAP 14 mEq/L (8-16); BILIRUBIN,TOTAL 1.1 mg/dL (0.1-1.4); CALCIUM 10.5 mg/dL (8.5-10.4); CARBON DIOXIDE 21 mEq/l (22-31); CHLORIDE 107 mEq/L (97-110); CREATININE 2.3 mg/dL (0.7-1.3); GLOMERULAR FILTRATION RATE 27; GLUCOSE 135 mg/dL (70-100); POTASSIUM 4.9 mEq/L (3.5-5.2); SODIUM 142 mEq/L (134-144)
[2016-10-03 01:37] LABS: INR 1.09 (0.83-1.16)
[2016-10-03 01:38] LABS: APTT 25.6 SEC (23.0-38.0)
[2016-10-03 02:56] LABS: COLOR YELLOW; LEUKOCYTE ESTERASE,URINE NEGATIVE (NEGATIVE); NITRITE,URINE NEGATIVE (NEGATIVE)
[2016-10-03 03:04] LABS: MUCUS TRACE /lpf (NONE-1+)
[2016-10-03] MEDS ORDERED: ONDANSETRON DISINTEGRATING 4 MG TAB PO PRN (03:48)
[2016-10-03] MEDS ORDERED: oxyCODONE IR 5 MG TAB PO PRN (03:48)
[2016-10-03] MEDS ORDERED: ONDANSETRON 4 MG/2 ML VIAL IVP PRN (03:48)
--- NOTE | 2016-10-03 07:29 | PDGENHP ---
History and Physical - Chief Complaint nausea, vomiting and diarrhea - History of Present Illness Patient is an 86-year-old male with h/o CAD, CKD stage 4, anemia of chronic disease, HTn who presents to the ED with acute onset nausea, vomiting and diarrhea. Patient was recently admitted from 09/15-09/16 for acute diverticulitis, was initiated on a course of cipro/flagyl, which he completed on 09/26. He reports feeling back to his baseline, on the day of admission he was able to participate in his routine exercise regimen and ate a usual diet. He had dinner without incident, but suddenly around 8-9 pm, he began experiencing crampy abdominal pain. He then developed nausea and started vomiting several times. Shortly after patient developed urgent, high volume diarrhea. Urgency was so intense, he could not make it to the toilet in time and had bowel incontinence. His SNF staff was alerted of his symptoms and he was transported to the ED. In addition to the abdominal symptoms, he also felt generalized fatigue and malaise , denied cough, chest pain, dysuria. On arrival to the ED, patient was afebrile but hypotensive and tachycardic. He was given IVF resuscitation with improvement in BP. Labs revealed mild leukocytosis, BMP wnl. CXR was unremarkable. CT abd/pelvis was obtained and revealed improving diverticulitis, no acute changes. History Information - Allergies/Home Medication List Allergies/Adverse Reactions: ibuprofen [From Motrin] Allergy (Verified 10/03/16 00:40) Home Medications: Acetaminophen [Tylenol ES 500 mg (*)] 500 mg PO Q6 PRN 09/15/16 [Last Taken Unknown] Aspirin [Aspirin 81mg (*)] 81 mg PO HS 09/15/16 [Last Taken 09/14/16] Atorvastatin Calcium [Lipitor 10 mg (*)] 10 mg PO HS 09/15/16 [Last Taken ] Azelastine/Fluticasone [Dymista Nasal [place]] 1 spray EACHNARE BID 09/15/16 [ Last Taken Unknown] Calcitriol [Calcitriol (*)] 0.25 mcg PO MOWEFR@09 09/15/16 [Last Taken 09/15/16 08:00] Ferrous Sulfate [Ferrous Sulf 325 MG (*)] 325 mg PO DAILY 09/15/16 [Last Taken Unknown] Furosemide [Lasix 20 MG (*)] 20 mg PO DAILY 09/15/16 [Last Taken 09/15/16] Herbals/Supplements -Info Only 1 ea PO DAILY 09/15/16 [Last Taken Unknown] Losartan Potassium [Cozaar 50 mg (*)] 50 mg PO DAILY 09/15/16 [Last Taken ] Multivitamins [Multivitamin (*)] 1 each PO DAILY 09/15/16 [Last Taken 09/15/16] Omeprazole 20 mg PO DAILY 09/15/16 [Last Taken 09/15/16] Polyethylene Glycol 3350 [Miralax 17 gm (*)] 17 gm PO HS 09/15/16 [Last Taken ] Potassium Cl [Klor-Con 10 meq (RX)] 10 meq PO Q2D 09/15/16 [Last Taken Unknown] Propranolol HCl [Inderal 20mg (*)] 20 mg PO BID 09/15/16 [Last Taken 09/15/16 08 :00] Ranitidine HCl 300 mg PO HS 09/15/16 [Last Taken 09/14/16] Tamsulosin HCl [Flomax 0.4 MG (*)] 0.4 mg PO Q2D 09/15/16 [Last Taken Unknown] amLODIPine BESYLATE [Norvasc 2.5 mg (*)] 2.5 mg PO DAILY@12 09/15/16 [Last Taken Unknown] I have personally reviewed and updated: family history, medical history, social history, surgical history - Past Medical History Additional medical history: CAD s/p PCI x 2. chronic renal failure, stage 3-4. mild cognitive impairment. HTN. anemia of chronic disease. BPH. HLD. essential tremor. h/o TIAs - Surgical History Additional surgical history: frontal sinus surgery. 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 Review of Systems ROS: 10pt was reviewed & negative except for what was stated in HPI & below Physical Exam Temp Pulse Resp BP Pulse Ox 37 C 110 H 16 100/52 L 90 L 10/03/16 04:00 10/03/16 04:00 10/03/16 04:00 10/03/16 04:00 10/03/16 04:00 Constitutional: no apparent distress, appears nourished, not in pain Eyes: PERRL, anicteric sclera, EOMI Ears, Nose, Mouth, Throat: hearing normal, ears appear normal, no oral mucosal ulcers, dry mucous membranes Cardiovascular: regular rate and rhythym, no murmur, rub, or gallop, pulses symmetric bilaterally, edema (trace pedal edema), No JVD Peripheral Pulses: 2+: dorsalis-pedis (R), dorsalis-pedis (L) Respiratory: no respiratory distress, no rales or rhonchi, clear to auscultation Gastrointestinal: normoactive bowel sounds, soft, non-tender abdomen, no palpable masses, distension (mild distention, mild diffuse tenderness), No guarding, No rebound Genitourinary: no bladder fullness, no bladder tenderness Skin: warm, normal color, no rashes or abrasions, no fluctuance, no induration, No mottled Musculoskeletal: full muscle strength, no muscle tenderness, normal joint ROM, no joint effusions Neurologic: AAOx3, sensation intact bilaterally, CN II-XII Intact, No weakness, No numbness Psychiatric: interacting appropriately, not anxious, not encephalopathic, thought process linear Lab Data & Imaging Review 10/03/16 00:15 10/03/16 00:15 WBC 11.71 10^3/uL (3.80-9.50) H 10/03/16 00:15 RBC 3.60 10^6/uL (4.40-6.38) L 10/03/16 00:15 Hgb 11.8 g/dL (13.7-17.5) L 10/03/16 00:15 Hct 34.6 % (40.0-51.0) L 10/03/16 00:15 MCV 96.1 fL (81.5-99.8) 10/03/16 00:15 MCH 32.8 pg (27.9-34.1) 10/03/16 00:15 MCHC 34.1 g/dL (32.4-36.7) 10/03/16 00:15 RDW 15.5 % (11.5-15.2) H 10/03/16 00:15 Plt Count 233 10^3/uL (150-400) 10/03/16 00:15 MPV 9.7 fL (8.7-11.7) 10/03/16 00:15 Neut % (Auto) 88.5 % (39.3-74.2) H 10/03/16 00:15 Lymph % (Auto) 5.6 % (15.0-45.0) L 10/03/16 00:15 [place] % (Auto) 2.6 % (4.5-13.0) L 10/03/16 00:15 Eos % (Auto) 1.2 % (0.6-7.6) 10/03/16 00:15 Baso % (Auto) 0.3 % (0.3-1.7) 10/03/16 00:15 Nucleat RBC Rel Count 0.0 % (0.0-0.2) 10/03/16 00:15 Absolute Neuts (auto) 10.36 10^3/uL (1.70-6.50) H 10/03/16 00:15 Absolute Lymphs (auto) 0.65 10^3/uL (1.00-3.00) L 10/03/16 00:15 Absolute Monos (auto) 0.31 10^3/uL (0.30-0.80) 10/03/16 00:15 Absolute Eos (auto) 0.14 10^3/uL (0.03-0.40) 10/03/16 00:15 Absolute Basos (auto) 0.04 10^3/uL (0.02-0.10) 10/03/16 00:15 Absolute Nucleated RBC 0.00 10^3/uL (0-0.01) 10/03/16 00:15 Immature Gran % 1.8 % (0.0-1.1) H 10/03/16 00:15 Immature Gran # 0.21 10^3/uL (0.00-0.10) H 10/03/16 00:15 PT 14.0 SEC (12.0-15.0) 10/03/16 00:15 INR 1.09 (0.83-1.16) 10/03/16 00:15 APTT 25.6 SEC (23.0-38.0) 10/03/16 00:15 VBG Lactic Acid 1.7 mmol/L (0.7-2.1) 10/03/16 01:20 Sodium 142 mEq/L (134-144) 10/03/16 00:15 Potassium 4.9 mEq/L (3.5-5.2) 10/03/16 00:15 Chloride 107 mEq/L (97-110) 10/03/16 00:15 Carbon Dioxide 21 mEq/l (22-31) L 10/03/16 00:15 Anion Gap 14 mEq/L (8-16) 10/03/16 00:15 BUN 46 mg/dL (7-23) H 10/03/16 00:15 Creatinine 2.3 mg/dL (0.7-1.3) H 10/03/16 00:15 Estimated GFR 27 10/03/16 00:15 Glucose 135 mg/dL (70-100) H 10/03/16 00:15 Calcium 10.5 mg/dL (8.5-10.4) H 10/03/16 00:15 Total Bilirubin 1.1 mg/dL (0.1-1.4) 10/03/16 00:15 Urine Color YELLOW 10/03/16 02:48 Urine Appearance CLEAR 10/03/16 02:48 Urine pH 5.0 (5.0-7.5) 10/03/16 02:48 Ur Specific [place] 1.013 (1.002-1.030) 10/03/16 02:48 Urine Protein 2+ (NEGATIVE) H 10/03/16 02:48 Urine Ketones NEGATIVE (NEGATIVE) 10/03/16 02:48 Urine Blood NEGATIVE (NEGATIVE) 10/03/16 02:48 Urine Nitrate NEGATIVE (NEGATIVE) 10/03/16 02:48 Urine Bilirubin NEGATIVE (NEGATIVE) 10/03/16 02:48 Urine Urobilinogen NEGATIVE EU (0.2-1.0) 10/03/16 02:48 Ur Leukocyte Esterase NEGATIVE (NEGATIVE) 10/03/16 02:48 Urine RBC 1-3 /hpf (0-3) 10/03/16 02:48 Urine WBC 1-3 /hpf (0-3) 10/03/16 02:48 Ur Epithelial Cells NONE SEEN /lpf (NONE-1+) 10/03/16 02:48 Urine Mucus TRACE /lpf (NONE-1+) 10/03/16 02:48 Ur Culture Indicated? NOT INDICATED (NI) 10/03/16 02:48 Urine Glucose NEGATIVE (NEGATIVE) 10/03/16 02:48 Visualized and Interpreted Chest x-ray results: Yes Chest X-Ray results: no infiltrate, normal Visualized and Interpreted imaging results: Yes Interpretation: CT abd/pelvis: improving diverticulitis; no free air Assessment & Plan Assessment: Patient is an 86-year old male with multiple comorbidities, including a recent episode of acute diverticulitis s/p cipro/flagyl antibiotic course who presents to the the ED with abrupt onset abdominal pain, n/v and diarrhea. CT unrevealing for acute pathology other than improving diverticulitis. Plan: # acute gastroenteritis Acute onset of new crampy abdominal pain, n/v/d, concerning for infectious etiology. Given recent antibiotic use, c diff is on differential, as well as other bacterial causes. CT does not reveal colitis, so will hold off on initiating antibiotics at this time, pending stool studies. Will check LFts and lipase. Symptomatic treatment with IVF, anti-emetics prn. Monitor and replete electrolytes prn. # SIRS Patient tachycardic and relatively hypotensive on presentation, with mild leukocytosis, consistent with SIRS. Hemodynamics have stabilized with IVF resuscitation, lactic acid wnl. Will given IV hydration and monitor vs. UA and CXR negative, will check flu swab. GI likely source of infection. # CAD Denies cardiac symptoms, will check EKG. # CKD stage IV Renal function appears to be at baseline, will cont to monitor. Electrolytes are wnl. # chronic HTN Will hold anti-hypertensives given relative hypotension. # chronic osteoarthritis Stable, cont home pain med. # dispo: admit to inpt service for likely > 2 [place] stay # gen: clear liquid diet DVT ppx: lovenox Full code, as expressed by patient
[2016-10-03] MEDS ORDERED: ENOXAPARIN 30 MG/0.3 ML SYR SC SCH (09:00)
[2016-10-03] MEDS: NS 1,000 ML IV SCH ×2 (09:00→20:45)
--- NOTE | 2016-10-03 09:37 | CPEKG ---
Heart Rate: 95 RR Interval: 632 QRSD Interval: 82 QT Interval: 384 QTC Interval: 483 QRS Hinkle: -7 T Wave Hinkle: 21 EKG Severity - ABNORMAL ECG - EKG Impression: ACCELERATED JUNCTIONAL RHYTHM EKG Impression: LOW VOLTAGE IN FRONTAL LEADS EKG Impression: BORDERLINE PROLONGED QT INTERVAL Electronically Signed By: Lucy Prakash 04-Oct-2016 07:39:32
[2016-10-03] MEDS ORDERED: NON-FORMULARY NEW DRUG (Omeprazole [Omeprazole] 20 MG) PO SCH (10:15)
[2016-10-03 10:37] LABS: ALBUMIN 3.9 g/dL (3.5-5.0); BILIRUBIN-CONJUGATED 0.5 mg/dL (0.0-0.5); BILIRUBIN-UNCONJUGATED 0.5 mg/dL (0.0-1.1); TOTAL PROTEIN 6.9 g/dL (6.3-8.2)
[2016-10-03] MEDS: PANTOPRAZOLE SODIUM 40 MG TAB PO SCH (10:58)
[2016-10-03] MEDS: VANCOMYCIN 125 MG/2.5 ML UDL PO SCH ×4 (10:58→20:45)
[2016-10-03] MEDS: POTASSIUM CL 10 MEQ TAB PO SCH (10:59)
[2016-10-03] MEDS: HEPARIN 5,000 UNIT/0.5 ML SYR SC SCH ×2 (13:13→21:02)
--- NOTE | 2016-10-03 14:36 | HOSPPROG ---
Hospitalist Progress Note Assessment/Plan: Pt admitted this am. Reviewed chart, pt seen and examined. C diff - Started po Vancomycin. Continue IVF's, supportive care. CKD - Cr below baseline. Hypertension - stable. A fib - ekg here appears consistent with accelerated junctional rhythm. Pt's daughter insisting on inpatient Cards consult, I obliged. Cards to see in am. DNR Dispo - cont inpt, PT/OT evals Subjective: Pt is tired, weak. No fevers. Objective: Vital Signs Temp Pulse Resp BP Pulse Ox 36.8 C 106 H 16 119/68 95 10/03/16 08:00 10/03/16 11:47 10/03/16 11:47 10/03/16 11:47 10/03/16 11:47 Microbiology 10/03/16 Unknown Gastrointestinal Tract Panel (PCR) - Final Stool Clostridium Difficile Detected 10/02/16 10/03/16 10/04/16 05:59 05:59 05:59 Intake Total 2000 Output Total 90 Balance 1910 PT 14.0 SEC (12.0-15.0) 10/03/16 00:15 INR 1.09 (0.83-1.16) 10/03/16 00:15 ICD10 Worksheet Patient Problems: Problems Problem Status Onset Diarrhea Acute Hypotension Acute Vomiting Acute Acute on chronic renal insufficiency Acute Dehydration Acute Diverticulitis large intestine Acute Mental status change Acute Renal failure Acute Syncope Acute
[2016-10-03] MEDS: ALLOPURINOL 100 MG TAB PO SCH (18:27)
[2016-10-03] MEDS: TAMSULOSIN HCL 0.4 MG CAP PO SCH (18:27)
[2016-10-03] MEDS: ASPIRIN 81 MG CHEWABLE TAB PO SCH (20:44)
[2016-10-03] MEDS: ATORVASTATIN CALCIUM 10 MG TAB PO SCH (20:44)
[2016-10-03] MEDS: FAMOTIDINE 20 MG TAB PO SCH (20:45)
[2016-10-03] MEDS: Azelastine/Fluticasone [Dymista Nasal Spray] EACHNARE SCH (20:45)
[2016-10-03] MEDS: POLYETHYLENE GLYCOL 3350 17 GM PKT PO SCH (20:47)
[2016-10-03] MEDS ORDERED: NON-FORMULARY NEW DRUG (Ranitidine Hcl [Ranitidine Hcl] 300 MG) PO SCH (21:00)
[2016-10-03] MEDS ORDERED: AZELASTINE EACHNARE SCH (21:00)
[2016-10-03] MEDS ORDERED: FLUTICASONE EACHNARE SCH (21:00)
[2016-10-04 05:25] LABS: % IMMATURE GRANULYOCYTES 1.5 % (0.0-1.1); ABSOLUTE IMMATURE GRANULOCYTES 0.07 10^3/uL (0.00-0.10); ADD DIFF? NO; ADD MORPH? NO; ADD SCAN? NO; ATYPICAL LYMPHOCYTE FLAG 20 (0-99); FRAGMENT RBC FLAG 0 (0-99); HEMOGLOBIN 8.1 g/dL (13.7-17.5); LEFT SHIFT FLG 10 (0-99); LIPEMIA HEMOLYSIS FLAG 90 (0-99); MEAN CELL HEMOGLOBIN 32.4 pg (27.9-34.1); MEAN CELL HEMOGLOBIN CONCENTR. 33.8 g/dL (32.4-36.7); MEAN PLATELET VOLUME 9.9 fL (8.7-11.7); PLATELET CLUMPS FLAG 10 (0-99); PLATELET COUNT 152 10^3/uL (150-400); RED CELL DISTRIBUTION WIDTH 15.5 % (11.5-15.2)
[2016-10-04] MEDS: VANCOMYCIN 125 MG/2.5 ML UDL PO SCH ×4 (05:31→20:49)
[2016-10-04] MEDS: HEPARIN 5,000 UNIT/0.5 ML SYR SC SCH ×3 (05:31→20:50)
[2016-10-04 05:35] LABS: ANION GAP 6 mEq/L (8-16); CALCIUM 8.9 mg/dL (8.5-10.4); CARBON DIOXIDE 19 mEq/l (22-31); CHLORIDE 114 mEq/L (97-110); CREATININE 1.8 mg/dL (0.7-1.3); GLOMERULAR FILTRATION RATE 36; GLUCOSE 76 mg/dL (70-100); POTASSIUM 4.1 mEq/L (3.5-5.2); SODIUM 139 mEq/L (134-144)
[2016-10-04] MEDS: FERROUS SULFATE 325 MG TAB PO SCH (08:41)
[2016-10-04] MEDS: LOSARTAN POTASSIUM 50 MG TAB PO SCH (08:41)
[2016-10-04] MEDS: PANTOPRAZOLE SODIUM 40 MG TAB PO SCH (08:41)
[2016-10-04] MEDS ORDERED: D5W 1/2 NS 1,000 ML IV SCH (08:45)
[2016-10-04] MEDS: Azelastine/Fluticasone [Dymista Nasal Spray] EACHNARE SCH ×2 (09:17→19:50)
--- NOTE | 2016-10-04 10:05 | HOSPPROG ---
Hospitalist Progress Note Assessment/Plan: C diff - Cont po Vancomycin. Continue IVF's, supportive care. Hyperchloremia - change to 1/2 NS Anemia - hgb dropped from 11.8 to 8.1. No e/o active bleeding. May be some dilutional component. Will check hemoccult stools and trend h&h. CKD - Cr below baseline. Hypertension - was a bit hypotensive on arrival, improved with IVF resuscitation , resume outpt meds now that BP on the rise A fib - ekg here appears consistent with accelerated junctional rhythm. Pt's daughter insisting on inpatient Cards consult, I obliged. Cards to see. DNR Dispo - cont inpt, OT recs [facility] vs SNF, follow therapy recs and progress Subjective: Pt resting comfortably. He is confused about why he is here. Denies abdominal pain, N/V or ongoing diarrhea. No fevers. Tolerating po. He is quite weak. No CP or SOb. Objective: Vital Signs Temp Pulse Resp BP Pulse Ox 36.6 C 76 18 157/89 H 94 10/04/16 07:49 10/04/16 07:49 10/04/16 07:49 10/04/16 07:49 10/04/16 07:49 Microbiology 10/03/16 Unknown Gastrointestinal Tract Panel (PCR) - Final Stool Clostridium Difficile Detected Laboratory Results 10/04/16 04:17 10/04/16 04:17 10/03/16 10/04/16 10/05/16 05:59 05:59 05:59 Intake Total 1999 2542 Output Total 90 Balance 1910 2542 PT 14.0 SEC (12.0-15.0) 10/03/16 00:15 INR 1.09 (0.83-1.16) 10/03/16 00:15 - Physical Exam Constitutional: no apparent distress Eyes: PERRL Ears, Nose, Mouth, Throat: moist mucous membranes Cardiovascular: regular rate and rhythym Respiratory: no respiratory distress, clear to auscultation Gastrointestinal: normoactive bowel sounds, soft, non-tender abdomen Skin: warm Psychiatric: interacting appropriately ICD10 Worksheet Patient Problems: Problems Problem Status Onset Diarrhea Acute Hypotension Acute Vomiting Acute Acute on chronic renal insufficiency Acute Dehydration Acute Diverticulitis large intestine Acute Mental status change Acute Renal failure Acute Syncope Acute
--- NOTE | 2016-10-04 10:19 | SOAPPROG ---
STEPHANIE Progress Note Assessment/Plan: Assessment: The family had requested of the nurses that cardiology come by and check on him. I have done that. I have not examined him I spoke to his daughter for a period of time answered all her questions while she was in the room and I remained outside the room because of his infection. He has absolutely no cardiovascular complaints at this time he is totally stable from a cardiovascular point of view I have discussed this case with nursing staff for several days and with the hospitalists. We are available to help any time we are needed. 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 She is also very worried about losing him about his dying. I talked her about that tried to reassure her and but also was realistic with her about the fact that in that is unpredictable for all of us and there is no guarantees on that issue she understands that even though she does not like it. I am available to do it every is needed but at this point time there is no indication he needs Cardiology at all. That is clearly not the same As saying he is not at risk of dying. there is no charge for this visit and evaluation. Plan: 10/04/16 10:17 Objective: Vital Signs Temp Pulse Resp BP Pulse Ox 36.6 C 76 18 157/89 H 94 10/04/16 07:49 10/04/16 07:49 10/04/16 07:49 10/04/16 07:49 10/04/16 07:49 Microbiology 10/03/16 Unknown Gastrointestinal Tract Panel (PCR) - Final Stool Clostridium Difficile Detected Laboratory Results 10/04/16 04:17 10/04/16 04:17 10/03/16 10/04/16 10/05/16 05:59 05:59 05:59 Intake Total 1999 2542 Output Total 90 Balance 1910 2542 PT 14.0 SEC (12.0-15.0) 10/03/16 00:15 INR 1.09 (0.83-1.16) 10/03/16 00:15 ICD10 Worksheet Patient Problems: Problems Problem Status Onset Diarrhea Acute Hypotension Acute Vomiting Acute Acute on chronic renal insufficiency Acute Dehydration Acute Diverticulitis large intestine Acute Mental status change Acute Renal failure Acute Syncope Acute
[2016-10-04 14:33] LABS: HEMATOCRIT 27.2 % (40.0-51.0); HEMOGLOBIN 9.3 g/dL (13.7-17.5)
[2016-10-04] MEDS: ALLOPURINOL 100 MG TAB PO SCH (17:45)
[2016-10-04] MEDS: ATORVASTATIN CALCIUM 10 MG TAB PO SCH (19:49)
[2016-10-04] MEDS: FAMOTIDINE 20 MG TAB PO SCH (19:50)
[2016-10-04] MEDS: ASPIRIN 81 MG CHEWABLE TAB PO SCH (19:50)
[2016-10-04] MEDS: PROPRANOLOL HCL 20 MG TAB PO SCH (19:50)
[2016-10-04] MEDS: POLYETHYLENE GLYCOL 3350 17 GM PKT PO SCH (19:56)
[2016-10-04] MEDS ORDERED: traZODone 50 MG TAB PO PRN (23:32)
[2016-10-05] MEDS: ACETAMINOPHEN 500 MG TAB PO PRN ×2 (02:54→19:59)
[2016-10-05] MEDS: VANCOMYCIN 125 MG/2.5 ML UDL PO SCH ×4 (05:32→19:58)
[2016-10-05] MEDS: HEPARIN 5,000 UNIT/0.5 ML SYR SC SCH ×3 (06:01→21:20)
[2016-10-05] MEDS ORDERED: CALCITRIOL 0.25 MCG CAP PO SCH (09:00)
[2016-10-05] MEDS: FUROSEMIDE 20 MG TAB PO SCH (09:23)
[2016-10-05] MEDS: PANTOPRAZOLE SODIUM 40 MG TAB PO SCH (09:23)
[2016-10-05] MEDS: FERROUS SULFATE 325 MG TAB PO SCH (09:24)
[2016-10-05] MEDS: PROPRANOLOL HCL 20 MG TAB PO SCH ×2 (09:24→20:00)
[2016-10-05] MEDS: LOSARTAN POTASSIUM 50 MG TAB PO SCH (09:24)
[2016-10-05] MEDS: Azelastine/Fluticasone [Dymista Nasal Spray] EACHNARE SCH ×2 (09:33→20:03)
[2016-10-05] MEDS: POTASSIUM CL 10 MEQ TAB PO SCH (09:35)
[2016-10-05 09:43] LABS: HEMATOCRIT 29.9 % (40.0-51.0); HEMOGLOBIN 10.2 g/dL (13.7-17.5); MEAN CELL HEMOGLOBIN CONCENTR. 34.1 g/dL (32.4-36.7); MEAN CELL VOLUME 93.7 fL (81.5-99.8); RED BLOOD CELL COUNT 3.19 10^6/uL (4.40-6.38); RED CELL DISTRIBUTION WIDTH 15.4 % (11.5-15.2)
[2016-10-05 10:14] LABS: ANION GAP 9 mEq/L (8-16); CALCIUM 9.7 mg/dL (8.5-10.4); CARBON DIOXIDE 21 mEq/l (22-31); CHLORIDE 107 mEq/L (97-110); CREATININE 1.9 mg/dL (0.7-1.3); GLOMERULAR FILTRATION RATE 34; GLUCOSE 74 mg/dL (70-100); POTASSIUM 4.2 mEq/L (3.5-5.2); SODIUM 137 mEq/L (134-144)
--- NOTE | 2016-10-05 11:43 | HOSPPROG ---
Hospitalist Progress Note Assessment/Plan: C diff - Recent atbx exposure for diverticulitis, which appears to be resolving per CT on admission. Cont po Vancomycin. No more diarrhea. Acute CVA - MRI showed acute CVA right frontal lobe, very small focus. Pt is already on ASA and low dose statin, will cont and check lipid status. Will increase ASA to full dose, check echo and carotid artery u/s. He has had >24 hrs on telemetry without e/o A fib. No documented A fib in prior hx. He did not tolerate a regular chocolate packer because he removes the leads. Could consider Ziopatch or LINQ for prolonged monitoring. Neurology to see, appreciate assistance. CAD - prior stenting, negative nuc stress test 2014. No CP here. Cont ASA, statin, BB. Anemia - hgb dropped from 11.8 to 8.1, now back up to ~10. No e/o active bleeding. May have beeen some dilutional component. Will check hemoccult stools. CKD - Cr below baseline. Monitor. Hypertension - cont current regimen DNR Dispo - cont inpt to complete CVA w/u, likely return to [facility] tomorrow. Subjective: Pt feels better, eating and drinking. Ambulating in halls. No events on telemetry. No CP or SOB. He had some delirium / confusion overnight. Objective: Vital Signs Temp Pulse Resp BP Pulse Ox 36.4 C 79 18 146/80 H 94 10/05/16 07:34 10/05/16 07:34 10/05/16 07:34 10/05/16 07:34 10/05/16 07:34 Laboratory Results 10/05/16 09:33 10/05/16 09:33 10/04/16 10/05/16 10/06/16 05:59 05:59 05:59 Intake Total 2542 890 800 Output Total 2050 300 Balance 2542 -1160 500 PT 14.0 SEC (12.0-15.0) 10/03/16 00:15 INR 1.09 (0.83-1.16) 10/03/16 00:15 - Physical Exam Constitutional: no apparent distress Eyes: PERRL Ears, Nose, Mouth, Throat: moist mucous membranes Cardiovascular: regular rate and rhythym Respiratory: no respiratory distress Gastrointestinal: normoactive bowel sounds, soft, non-tender abdomen Skin: warm Psychiatric: interacting appropriately, poor memory ICD10 Worksheet Patient Problems: Problems Problem Status Onset Diarrhea Acute Hypotension Acute Vomiting Acute Acute on chronic renal insufficiency Acute Dehydration Acute Diverticulitis large intestine Acute Mental status change Acute Renal failure Acute Syncope Acute
[2016-10-05 12:39] LABS: CHOLESTEROL 152 mg/dL (140-220); CHOLESTEROL/HDL RATIO 4.34 RATIO (1.00-4.97); HIGH DENSITY LIPOPROTEIN 35 mg/dL (40-65); LDL/HDL RATIO 2.37 RATIO (1.00-3.64); LOW DENSITY LIPOPROTEIN 83 mg/dL (80-100); NON-HIGH DENSITY LIPOPROTEIN 117 mg/dL (90-129); TRIGLYCERIDE 173 mg/dL (40-150); VERY LOW DENSITY LIPOPROTEINS 34 mg/dL (8-25)
--- NOTE | 2016-10-05 13:55 | ECHO ---
[id number] + + [address] : : [place] [address] : : [phone] + + Adult Echocardiographic Report + ---+ :Name: CAREN ZAVALA Randi Date: 10/05/2016 12:06 PM : : Hospital Admission Number: [id number] : :: 1930 Gender: Male Height: 64 in : :Age: 86 yrs Race: WH Weight: 146 l b : :Reason For Study: acute CVA : : BSA: 1.7 mete rs2: :History: Afib : + ---+ MMode/2D Measurements \T\ Calculations IVSd: 1.3 cm RVDd: 3.4 cm FS: 19.2 % MV Diam: 2.9 cm LVPWd: 1.1 cm LVIDd: 3.2 cm EDV(Teich): 42.0 ml LVIDs: 2.6 cm ESV(Teich): 24.9 ml EF(Teich): 40.7 % LVOT diam: 2.0 cm LVLd ap4: 7.7 cm SV(MOD-sp4): 37.0 ml LVOT area: 3.0 cm2 EDV(MOD-sp4): 68.0 ml LVLs ap4: 7.1 cm ESV(MOD-sp4): 31.0 ml EF(MOD-sp4): 54.4 % Normal Measurement Values: + + :LVIDd (3.5-5.7cm) IVSd (0.6-1.1cm) LVPWd (0.6-1.1cm) Aortic Root (2.0-3.7cm)Left Atrium (1.5-4.0cm): :LV Vol(d) (76-115ml) LV Vol(s) (29-48ml) Ejec Fraction (50-65%)PV Fam (0.6- 1.2m/s) TV Fam (0.4-1.0m/s) : :MV E Fam (0.8-1.0m/s)MV A Fam (0.3-1.0m/s)LVOT Fam (0.7-1.2m/s) Asc Ao Fam ( 0.9-1.8m/s) : + + Doppler Measurements \T\ Calculations MV V2 max: Ao V2 max: AI max fam: LV V1 mean P.8 cm/sec 76.6 cm/sec 363.2 cm/sec 0.94 mmHg MV max P.4 mmHg Ao max PG: AI max P.8 mmHgLV V1 mean: MV V2 mean: 2.3 mmHg AI dec slope: 45.0 cm/sec 75.3 cm/sec Ao mean P.4 cm/sec2 LV V1 VTI: MV mean P.7 mmHg0.84 mmHg AI P1/2t: 503.1 msec14.1 cm MV V2 VTI: 28.3 cm Ao V2 mean: MV area (1 diam): 42.4 cm/sec 6.4 cm2 Ao V2 VTI: 14.6 cm JOSI(I,D): 2.9 cm2 MVA(VTI): 1.5 cm2 MV Flow area(1diam): 6.4 cm2 MR max fam: MR(RF 1 diam): SV(MV 1 diam): PA V2 max: 574.1 cm/sec 5.9 % 180.8 ml 68.7 cm/sec MR max PG: SI(MV 1 diam): PA max P.9 mmHg 105.6 ml/m2 1.9 mmHg SV(LVOT): 42.3 ml PI end-d fam: TR max fam: RF(MV,LVOT)(1diam): 67.3 cm/sec 342.1 cm/sec 0.77 TR max P.8 mmHg RAP systole: 10.0 mmHg RVSP(TR): 56.8 mmHg Left Ventricle The left ventricle is normal in size and function. There is mild concentric left ventricular hypertrophy. Ejection Fraction = 55-60%. Right Ventricle The right ventricle is normal in size and function. Atria The left atrium is mildly dilated. The Left Atrial Volume is 37 ml/m2. Right atrial size is normal. The interatrial septum is intact with no evidence for an atrial septal defect. Mitral Valve Calcified anterior leaflet. There is no mitral valve stenosis. There is mild to moderate mitral regurgitation. Tricuspid Valve The tricuspid valve is normal in structure and function. There is no tricuspid stenosis. There is severe tricuspid regurgitation. Right ventricular systolic pressure is 39mmHg. Aortic Valve Mild Aortic Valve Calcification. There is no aortic stenosis. Mild aortic regurgitation. Pulmonic Valve The pulmonic valve is normal in structure and function. There is no pulmonic valvular stenosis. Trace pulmonic valvular regurgitation. Great Vessels The aortic root is not well visualized. Pericardium/Pleural There is a fat pad seen. Conclusion A complete two-dimensional transthoracic echocardiogram was performed (2D, M-mode, Doppler and color flow Doppler). The left ventricle is normal in size and function. There is mild concentric left ventricular hypertrophy. Ejection Fraction = 55-60%. The left atrium is mildly dilated. Calcified anterior leaflet There is mild to moderate mitral regurgitation. Mild aortic regurgitation. Trace pulmonic valvular regurgitation. There is severe tricuspid regurgitation. Right ventricular systolic pressure is 39mmHg. The aortic root is not well visualized. Final Reading Physician: Maryellen Pedraza signed on 10/05/2016 01:54 PM Ordering Physician: Danyelle Canales Performed By: Renetta Levine
--- NOTE | 2016-10-05 17:06 | GCON ---
[f rep st] CONSULTATION NEUROLOGY CONSULT REFERRING PHYSICIAN: Danyelle Canales MD CHIEF COMPLAINT: Abnormal MRI brain. HISTORY OF PRESENT ILLNESS: The patient is a very pleasant 86-year-old gentleman, who has seen my colleague, Dr. Cody, as an outpatient for memory loss recently. A routine MRI brain was ordered as an outpatient for memory loss. The patient was recently admitted for gastrointestinal problems and the MRI brain was done as an inpatient. The MRI brain showed a small diffusion- weighted abnormality in the right frontal region. He also has some encephalomalacia in the right mesial frontal region corresponding to an old stroke he reported in 2013 causing left leg weakness. There are no symptoms corresponding to the new diffusion-weighted abnormality. Because of this finding, Neurology was consulted. The patient denies any new left-sided symptoms or any new neurologic symptoms. He is having some acute on chronic encephalopathy with his underlying gastrointestinal symptomatology with diarrhea and C. difficile. REVIEW OF SYSTEMS: Ten-point review of systems was done with the patient and his daughter, and only pertinent to the HPI. For past medical history, social history, family history, home medications, and allergies, please see the admitting history and physical. PHYSICAL EXAM: VITAL SIGNS: Blood pressure 146/80, temperature 36.3, heart rate 70, respirations 16. GENERAL: In no acute distress, very pleasant gentleman. HIGHER MENTAL FUNCTION: He is awake and alert. No aphasia. Cranial nerve exam: Normal 2-7. Motor exam: There is no focal weakness. He did have some action tremor in his upper extremities. Sensory exam: Normal to light touch in all 4 extremities. Coordination revealed action tremor, but no limb ataxia. IMPRESSION AND PLAN: 1. Likely incidental finding of diffusion-weighted abnormality in right frontal region. 2. Chronic stroke in right inferior mesial frontal region. The finding on MRI brain of diffusion-weighted abnormality is likely incidental to his current evaluation for GI symptoms - and may represent an evolving microvascular white matter change or small infarct. This was discussed at length with the patient and his daughter. We will certainly complete the stroke evaluation. He has had no atrial fibrillation overnight on ECG telemetry. We performed an echocardiogram, which showed some mild dilation of the left atrium. I recommend he have an outpatient ECG monitor for further screening of occult paroxysmal atrial fibrillation. Carotid ultrasound was done and shows no significant carotid obstruction. I think he can discharge home on an increased dose of aspirin of 325 mg daily coated with meals. We discussed potential risks, benefits, and alternatives of this increased dosage of aspirin. He will follow up with Dr. Cody on the above. No further recommendations. We will sign off and follow up as needed with this very pleasant gentleman. /[id number]/MODL MTDD
[2016-10-05] MEDS: TAMSULOSIN HCL 0.4 MG CAP PO SCH (17:30)
[2016-10-05] MEDS: ALLOPURINOL 100 MG TAB PO SCH (17:30)
[2016-10-05] MEDS: POLYETHYLENE GLYCOL 3350 17 GM PKT PO SCH (19:58)
[2016-10-05] MEDS: ATORVASTATIN CALCIUM 10 MG TAB PO SCH (20:03)
[2016-10-05] MEDS: FAMOTIDINE 20 MG TAB PO SCH (20:03)
[2016-10-05 20:12] VITALS: RESP 18
[2016-10-06 05:57] VITALS: TEMP 97.3
[2016-10-06] MEDS: HEPARIN 5,000 UNIT/0.5 ML SYR SC SCH (06:02)
[2016-10-06] MEDS: VANCOMYCIN 125 MG/2.5 ML UDL PO SCH ×2 (06:03→12:16)
[2016-10-06 07:27] VITALS: BP 160/90; PULSE 72; O2SAT 94
[2016-10-06] MEDS: PROPRANOLOL HCL 20 MG TAB PO SCH (08:54)
[2016-10-06] MEDS: LOSARTAN POTASSIUM 50 MG TAB PO SCH (08:54)
[2016-10-06] MEDS: PANTOPRAZOLE SODIUM 40 MG TAB PO SCH (08:55)
[2016-10-06] MEDS: FERROUS SULFATE 325 MG TAB PO SCH (08:55)
[2016-10-06] MEDS: FUROSEMIDE 20 MG TAB PO SCH (08:55)
[2016-10-06] MEDS: Azelastine/Fluticasone [Dymista Nasal Spray] EACHNARE SCH (08:56)
[2016-10-06] MEDS ORDERED: ASPIRIN 81 MG CHEWABLE TAB PO SCH (09:00)
[2016-10-06] MEDS ORDERED: ASPIRIN 325 MG TAB PO SCH (09:00)
--- NOTE | 2016-10-06 10:05 | PDIAF ---
- Diagnosis Diagnosis: C diff Code Status: Do Not Resuscitate - Medication Management Discharge Medications: Medications to Continue on Transfer Atorvastatin Calcium [Lipitor 10 mg (*)] 10 mg PO HS 09/15/16 [Last Taken ] Azelastine/Fluticasone [Dymista Nasal [place]] 1 spray EACHNARE BID 09/15/16 [ Last Taken 10/02/16] Calcitriol [Calcitriol (*)] 0.25 mcg PO MOWEFR@09/15/16 [Last Taken 10/02/16] Ferrous Sulfate [Ferrous Sulf 325 MG (*)] 325 mg PO DAILY 09/15/16 [Last Taken 10/02/16] Furosemide [Lasix 20 MG (*)] 20 mg PO DAILY@09/15/16 [Last Taken 10/02/16] Herbals/Supplements -Info Only 1 ea PO DAILY 09/15/16 [Last Taken 10/02/16] Losartan Potassium [Cozaar 50 mg (*)] 50 mg PO DAILY@09/15/16 [Last Taken ] Multivitamins [Multivitamin (*)] 1 each PO DAILY 09/15/16 [Last Taken 10/02/16] Omeprazole 20 mg PO DAILY 09/15/16 [Last Taken 10/02/16] Polyethylene Glycol 3350 [Miralax 17 gm (*)] 17 gm PO HS 09/15/16 [Last Taken ] Potassium Cl [Klor-Con 10 meq (RX)] 10 meq PO Q2D 09/15/16 [Last Taken 10/01/16] Propranolol HCl [Inderal 20mg (*)] 20 mg PO BID@09/15/16 [Last Taken ] Ranitidine HCl 300 mg PO HS 09/15/16 [Last Taken 10/02/16] Tamsulosin HCl [Flomax 0.4 MG (*)] 0.4 mg PO Q2D@182909/15/16 [Last Taken 10/01] amLODIPine BESYLATE [Norvasc 2.5 mg (*)] 2.5 mg PO DAILY@12 09/15/16 [Last Taken 10/02/16] Allopurinol [Allopurinol 300 MG (RX)] 200 mg PO DAILY@182910/03/16 [Last Taken 10/02/16] Aspirin [Aspirin 325 mg (*)] 325 mg PO DAILY #30 tab 10/06/16 [Last Taken Unknown] Vancomycin [Vancocin Oral Liquid] 125 mg PO QID #28 udl 10/06/16 [Last Taken Unknown] Discharge Medications: Refer to the Discharge Home Medication list for PRN reason. - Orders Services needed: Home Care, Registered Nurse, Physical Therapy, Occupational Therapy Home Care Face to Face: I certify that this patient was under my care and that I had the required [id number] encounter meeting the encounter requirements on the discharge day. My findings support the fact that the patient is homebound as defined in CMS Chapter 7 Medicare Benefits Manual 30.1.1, The condition of the patient is such that there exists a normal inability to leave home and consequently, leaving home would require a considerable and taxing effort. Diet Recommendation: no restrictions on diet - Follow Up Care Current Providers and Referrals: Patient,NotPresent [Unknown] - As per Instructions Aaron Nunn MD [Medical Doctor] -
--- NOTE | 2016-10-06 20:19 | GDS ---
[f rep st] DISCHARGE SUMMARY DISCHARGE DIAGNOSES: 1. Clostridium difficile colitis. 2. Acute/subacute cerebrovascular accident. 3. Coronary artery disease. 4. Anemia. 5. Chronic kidney disease. 6. Hypertension. CONSULTANTS: Dr. Brooks Carpenter, Neurology. IMAGING STUDIES/PROCEDURES: 1. Abdomen pelvis CT October 03, 2016 showed resolving sigmoid diverticulitis with extensive diver ticulosis, fluid noted in the sigmoid colon possibly representing superimposed colitis. 2. Brain MRI October 05, 2016 showed a right frontal linear subacute infarct and old posttraumatic encephalomalacia versus old infarct, no acute hemorrhage, and multiple nonspecific T2 abnormalities in the white matter of bilateral cerebral hemispheres. 3. Echocardiogram October 05, 2016 showed mild LVH and ejection fraction of 55% to 60%, mildly dil ated left atrium, mild to moderate mitral regurgitation, severe tricuspid regurgitation, and a right ventricular systolic pressure of 39. 4. Carotid artery Doppler study October 05, 2016 showed minimal bilateral carotid plaque with no f low-limiting stenosis or occlusion. HISTORY: For details, please see dictated history and physical dated September 2016. In brief, the patient is an 86-year-old male with a history of coronary artery disease, chronic kidney disease, and hypertension, who presented to the emergency department with nausea, vomiting, diarrhe a. He had recently been admitted approximately 3 weeks ago for acute diverticulitis for which he co mpleted a course of Cipro and Flagyl. He was admitted to the hospital for further evaluation. HOSPITAL COURSE: Patient was admitted to the progressive care unit. A stool study was sent and was positive for Clostridium difficile. He was started on oral vancomycin. He initially presented wit h tachycardia and mild hypotension consistent with volume depletion in the setting of vomiting and d iarrhea. He received IV fluid resuscitation. His vital signs normalized. He had no chest pain or ischemic changes on his EKG. He apparently had plans for an outpatient MRI study for dementia moses p per his outpatient neurologist. This was performed inpatient and revealed an acute versus subacut e infarct. Therefore, stroke workup was pursued with an echocardiogram and carotid artery study as above. Neurology consultation was obtained, and ultimately, this was deemed most likely to be an in cidental finding. There was no evidence of atrial fibrillation on greater than 48 hours of telemetr y. We discussed ongoing outpatient cardiac monitoring to continue a search for AFib. He has had ou tpatient monitoring before and due to his dementia, pulled his leads off. Therefore, he was sent ov er to Dr. Patton's office for a ZIO patch and results will be sent to his primary binder cutter, Dr. Yuri Nunn. His aspirin dose was increased to 325 mg daily. He was continued on statin therapy. H is GI symptoms resolved and his overall condition returned to baseline. DISPOSITION: Patient is discharged home in stable condition. FOLLOWUP: The patient is given instructions to call Dr. Patton's office to set up a ZIO patch. He should then follow up with Dr. Nunn at the [facility] in 1 month to review results. DISCHARGE MEDICATIONS: Please see [place] for complete updated outpatient medication list. New me dications on discharge include: 1. Vancomycin 125 mg p.o. q.i.d. for 7 more days to complete a total of 10 days of therapy. 2. Aspirin dose is increased to 325 mg p.o. daily. Will continue all other outpatient medications as prescribed. /[id number]/MODL
== END 2016-10-06 12:33 | disposition home or self-care (01) | DRG 371 ==
LOC: EDUNIT# → F2W 03:52
PROVIDERS: ADMIT Internal Medicine; ATTEND Hospitalist
DX: A04.7 Enterocolitis due to Clostridium difficile (principal); I63.9 Cerebral infarction, unspecified; I12.9 Hypertensive chronic kidney disease with stage 1 through stage 4 chronic kidney disease, or unspecified chronic kidney disease; N18.3 Chronic kidney disease, stage 3 (moderate); I25.10 Atherosclerotic heart disease of native coronary artery without angina pectoris; Z95.5 Presence of coronary angioplasty implant and graft; G25.0 Essential tremor; J44.9 Chronic obstructive pulmonary disease, unspecified; D63.1 Anemia in chronic kidney disease; Z66 Do not resuscitate; Z86.73 Personal history of transient ischemic attack (TIA), and cerebral infarction without residual deficits
CPT/HCPCS: 97116-GP; 97161-GP; 97165-GO; 97530-GO; 97530-GP; 97535-GO; G8978-GP-CI; G8979-GP-CI; G8980-GP-CI; G8987-GO-CK; G8988-GO-CI; J1650

== ENCOUNTER 2016-10-13 09:33 | Inpatient (IN) | payer OTHER, BC ==
--- NOTE | 2016-10-13 09:35 | EDPHY ---
H & P Time Seen by Provider: 10/13/16 09:35 - Medical/Surgical History Hx Asthma: No Hx Chronic Respiratory Disease: No Hx Diabetes: No Hx Cardiac Disease: Yes Hx Renal Disease: Yes Hx Cirrhosis: No Hx Alcoholism: No Hx HIV/AIDS: No Hx Splenectomy or Spleen Trauma: No Other PMH: Colitis, CKD stage3, Chronic sinus, HTN, Cardiac stents x2, Essential tremor, CVA, arthrisis, Color blind, [place], Gout, COPD, BPH - Social History Smoking Status: Never smoked Constitutional: Initial Vital Signs Temperature (C) 36.8 C 10/13/16 09:45 Heart Rate 120 H 10/13/16 09:45 Respiratory Rate 18 10/13/16 09:45 Blood Pressure 110/76 10/13/16 09:45 O2 Sat (%) 99 10/13/16 09:45 O2 Delivery Mode Room Air Allergies/Adverse Reactions: ibuprofen [From Motrin] Allergy (Verified 10/13/16 09:43) Home Medications: Medication Instructions Recorded Atorvastatin Calcium [Lipitor 10 10 mg PO HS 09/15/16 mg (*)] Azelastine/Fluticasone [Dymista 1 spray EACHNARE BID 09/15/16 Nasal [place]] Calcitriol [Calcitriol (*)] 0.25 mcg PO MOWEFR@09/15/16 Ferrous Sulfate [Ferrous Sulf 325 325 mg PO DAILY 09/15/16 MG (*)] Furosemide [Lasix 20 MG (*)] 20 mg PO DAILY@09/15/16 Herbals/Supplements -Info Only 1 ea PO DAILY 09/15/16 Losartan Potassium [Cozaar 50 mg 50 mg PO DAILY@09/15/16 (*)] Multivitamins [Multivitamin (*)] 1 each PO DAILY 09/15/16 Omeprazole 20 mg PO DAILY 09/15/16 Polyethylene Glycol 3350 [Miralax 17 gm PO HS 09/15/16 17 gm (*)] Potassium Cl [Klor-Con 10 meq (RX)] 10 meq PO Q2D 09/15/16 Propranolol HCl [Inderal 20mg (*)] 20 mg PO BID@09/15/16 Ranitidine HCl 300 mg PO HS 09/15/16 Tamsulosin HCl [Flomax 0.4 MG (*)] 0.4 mg PO Q2D@182909/15/16 amLODIPine BESYLATE [Norvasc 2.5 2.5 mg PO DAILY@12 09/15/16 mg (*)] Allopurinol [Allopurinol 300 MG 200 mg PO DAILY@182910/03/16 (RX)] Aspirin [Aspirin 325 mg (*)] 325 mg PO DAILY #30 tab 10/06/16 Vancomycin [Vancocin Oral Liquid] 125 mg PO QID #28 udl 10/06/16 Medical Decision Making ED Course/Re-evaluation: CHIEF COMPLAINT: Diarrhea. HISTORY OF PRESENT ILLNESS: The patient is an 86-year-old cdiff+ male presenting via EMS with recurring diarrhea that began today. He did not have any diarrhea since being discharged from the hospital 10 days ago. He has been taking 125mg Vancomycin but missed his dose this morning. He admits associated chills. He denies abdominal pain, vomiting, or other complaints. REVIEW OF SYSTEMS: A 10 point review of systems was performed and is negative with the exception of the elements mentioned in the history of present illness. PHYSICAL EXAM: HR, BP, O2 Sat, RR. Temp noted General Appearance: Alert, well hydrated, appropriate, and non-toxic appearing. Head: Atraumatic without scalp tenderness or obvious injury Eyes: Pupils equal, round, reactive to light and accommodation, EOMI, no trauma , no injection. Ears: Clear bilaterally, no perforation, normal landmarks Nose: Atraumatic, no rhinorrhea, clear. Throat: There is no erythema or exudates, no lesions, normal tonsils, mucus membranes moist. Neck: Supple, 2+ carotid upstroke, nontender, no lymphadenopathy. Respiratory: No retractions, no distress, no wheezes, and no accessory muscle use. Lungs are clear to auscultation bilaterally. Cardiovascular: Regular rate and rhythm, no murmurs, rubs, or gallops. Bilateral carotid, radial, dorsalis pedis, and posterior tibial pulses intact. Good capillary refill all extremities. Gastrointestinal: Abdomen is soft, nontender, non-distended, no masses, no rebound, no guarding, no peritoneal signs. Musculoskeletal: Normal active ROM of all extremities, atraumatic. Neurological: Alert, appropriate, and interactive. The patient has normal DTRs and non-focal cranial nerves, motor, sensory, and cerebellar exam. Skin: No rashes, good turgor, no nodules on palpation. Past medical history:CAD, hypertension, chronic kidney disease stage IV. Past surgical history:Denies. Family history:Non-contributory. Social history:Lives at [facility]. DIFFERENTIAL DIAGNOSIS: Differential diagnosis includes, but is not limited to, c. Diff, sepsis, gastroenteritis, influenza, viral illness, dehydration. MEDICAL DECISION MAKIN-year-old male who was discharged from the hospital 10 days ago on antibiotics for cdiff. The diarrhea had resolved after discharge but returned this morning. He has been compliant with his vancomycin. Today he is tachycardic and has chills, representing systemic illness on top of the cdiff. He is also dehydrated and his daughter reports his fluid intake has been unable to keep up with the diarrhea. An IV was established and labs ordered. He missed his dose of Vancomycin this morning and will receive Vancomycin 500mg PO here in the ED. WBC elevated at 14.23. BUN and creatinine consistent with known kidney disease. 1209: Reassessed patient. I informed him of the results of his labwork. He has had mild diarrhea while in the ED. He is comfortable being admitted for further hydration and monitoring as going home may not be a safe option for him. I believe that admission is strongly indicated as his fever, chills, and leukocytosis indicate an underlying illness that could complicate his recovery. 1240: Consulted with Dr. Jolly, hospitalist. He accepts admission. - Data Points Laboratory Results: Laboratory Results 10/13/16 11:15 10/13/16 11:15 10/13/16 10/13/16 10/13/16 11:25 11:15 11:15 WBC RBC Hgb Hct MCV MCH MCHC RDW Plt Count MPV Neut % (Auto) Lymph % (Auto) [place] % (Auto) Eos % (Auto) Baso % (Auto) Nucleat RBC Rel Count Absolute Neuts (auto) Absolute Lymphs (auto) Absolute Monos (auto) Absolute Eos (auto) Absolute Basos (auto) Absolute Nucleated RBC Immature Gran % Immature Gran # PT 13.9 SEC SEC (12.0-15.0) INR 1.08 (0.83-1.16) APTT 26.7 SEC SEC (23.0-38.0) Sodium 142 mEq/L mEq/L (134-144) Potassium 4.7 mEq/L mEq/L (3.5-5.2) Chloride 108 mEq/L mEq/L (97-110) Carbon Dioxide 20 mEq/l L mEq/l (22-31) Anion Gap 14 mEq/L mEq/L (8-16) BUN 50 mg/dL H mg/dL (7-23) Creatinine 2.4 mg/dL H mg/dL (0.7-1.3) Estimated GFR 26 Glucose 115 mg/dL H mg/dL (70-100) Calcium 10.4 mg/dL mg/dL (8.5-10.4) C. difficile Tox (PCR) Pending 10/13/16 11:15 WBC 14.23 10^3/uL H 10^3/uL (3.80-9.50) RBC 3.62 10^6/uL L 10^6/uL (4.40-6.38) Hgb 11.9 g/dL L g/dL (13.7-17.5) Hct 34.3 % L % (40.0-51.0) MCV 94.8 fL fL (81.5-99.8) MCH 32.9 pg pg (27.9-34.1) MCHC 34.7 g/dL g/dL (32.4-36.7) RDW 15.8 % H % (11.5-15.2) Plt Count 236 10^3/uL 10^3/uL (150-400) MPV 9.4 fL fL (8.7-11.7) Neut % (Auto) 93.3 % H % (39.3-74.2) Lymph % (Auto) 2.0 % L % (15.0-45.0) [place] % (Auto) 3.1 % L % (4.5-13.0) Eos % (Auto) 0.1 % L % (0.6-7.6) Baso % (Auto) 0.1 % L % (0.3-1.7) Nucleat RBC Rel Count 0.0 % % (0.0-0.2) Absolute Neuts (auto) 13.27 10^3/uL H 10^3/uL (1.70-6.50) Absolute Lymphs (auto) 0.29 10^3/uL L 10^3/uL (1.00-3.00) Absolute Monos (auto) 0.44 10^3/uL 10^3/uL (0.30-0.80) Absolute Eos (auto) 0.01 10^3/uL L 10^3/uL (0.03-0.40) Absolute Basos (auto) 0.02 10^3/uL 10^3/uL (0.02-0.10) Absolute Nucleated RBC 0.00 10^3/uL 10^3/uL (0-0.01) Immature Gran % 1.4 % H % (0.0-1.1) Immature Gran # 0.20 10^3/uL H 10^3/uL (0.00-0.10) PT INR APTT Sodium Potassium Chloride Carbon Dioxide Anion Gap BUN Creatinine Estimated GFR Glucose Calcium C. difficile Tox (PCR) Medications Given: Discontinued Medications Sodium Chloride (Ns) 500 mls @ 0 mls/hr IV ONCE ONE PRN Reason: Wide Open Stop: 10/13/16 11:20 Last Admin: 10/13/16 11:20 Dose: 500 mls Vancomycin HCl (Vancocin Oral Liquid) 500 mg PO EDNOW ONE PRN Reason: Protocol Stop: 10/13/16 09:46 Last Admin: 10/13/16 11:10 Dose: 500 mg Departure - Departure Disposition: [facility] In[facility] Acute Clinical Impression: Recurrent Clostridium difficile diarrhea, Fever and chills Leukocytosis Qualifiers: Leukocytosis type: unspecified Qualified Code(s): D72.829 - Elevated white blood cell count, unspecified Condition: Fair Referrals: Patient,NotPresent [Unknown] - As per Instructions Report Scribed for: Kofi Woods Report Scribed by: Pepe Nagel Date of Report: 10/13/16 Time of Report: 09:46
[2016-10-13] MEDS ORDERED: VANCOMYCIN 125 MG/2.5 ML UDL PO ONE (09:45)
[2016-10-13] MEDS ORDERED: NS 500 ML IV ONE ×2 (11:19→15:37)
[2016-10-13 11:25] LABS: % IMMATURE GRANULYOCYTES 1.4 % (0.0-1.1); ADD DIFF? NO; ADD MORPH? NO; ADD SCAN? NO; ATYPICAL LYMPHOCYTE FLAG 0 (0-99); FRAGMENT RBC FLAG 0 (0-99); HEMATOCRIT 34.3 % (40.0-51.0); HEMOGLOBIN 11.9 g/dL (13.7-17.5); LEFT SHIFT FLG 10 (0-99); LIPEMIA HEMOLYSIS FLAG 90 (0-99); MEAN CELL HEMOGLOBIN 32.9 pg (27.9-34.1); MEAN CELL HEMOGLOBIN CONCENTR. 34.7 g/dL (32.4-36.7); MEAN CELL VOLUME 94.8 fL (81.5-99.8); MEAN PLATELET VOLUME 9.4 fL (8.7-11.7); PLATELET CLUMPS FLAG 10 (0-99); PLATELET COUNT 236 10^3/uL (150-400); RED BLOOD CELL COUNT 3.62 10^6/uL (4.40-6.38); RED CELL DISTRIBUTION WIDTH 15.8 % (11.5-15.2)
[2016-10-13 11:39] LABS: APTT 26.7 SEC (23.0-38.0); INR 1.08 (0.83-1.16); PROTIME(PATIENT) 13.9 SEC (12.0-15.0)
[2016-10-13 11:48] LABS: ANION GAP 14 mEq/L (8-16); CALCIUM 10.4 mg/dL (8.5-10.4); CARBON DIOXIDE 20 mEq/l (22-31); CHLORIDE 108 mEq/L (97-110); CREATININE 2.4 mg/dL (0.7-1.3); GLOMERULAR FILTRATION RATE 26; GLUCOSE 115 mg/dL (70-100); POTASSIUM 4.7 mEq/L (3.5-5.2); SODIUM 142 mEq/L (134-144)
[2016-10-13] MEDS ORDERED: ONDANSETRON 4 MG/2 ML VIAL IVP PRN (14:45)
[2016-10-13] MEDS ORDERED: ONDANSETRON DISINTEGRATING 4 MG TAB PO PRN (14:45)
[2016-10-13] MEDS ORDERED: ACETAMINOPHEN 325 MG TAB PO PRN ×2 (14:45→14:47)
[2016-10-13] MEDS ORDERED: PROMETHAZINE HCL 25 MG/ML INJ IVP PRN (14:45)
[2016-10-13] MEDS ORDERED: CALCIUM CARBONATE 500 MG CHEWABLE TAB PO PRN (14:47)
[2016-10-13] MEDS ORDERED: TETRAHYDROZOLINE 0.05% 15 ML OPHT.BTL EACHEYE PRN (14:47)
[2016-10-13] MEDS: NS 1,000 ML IV SCH (15:21)
[2016-10-13] MEDS: VANCOMYCIN 125 MG/2.5 ML UDL PO SCH ×2 (15:21→20:52)
[2016-10-13 15:48] LABS: COLOR YELLOW; LEUKOCYTE ESTERASE,URINE NEGATIVE (NEGATIVE); NITRITE,URINE NEGATIVE (NEGATIVE)
[2016-10-13 15:53] LABS: MUCUS TRACE /lpf (NONE-1+)
--- NOTE | 2016-10-13 16:22 | CPEKG ---
Heart Rate: 101 RR Interval: 594 P-R Interval: 177 QRSD Interval: 78 QT Interval: 364 QTC Interval: 472 P [place]: 85 QRS [place]: -27 T Wave [place]: 45 EKG Severity - ABNORMAL ECG - EKG Impression: SINUS TACHYCARDIA EKG Impression: PROBABLE INFERIOR INFARCT, AGE INDETERMINATE EKG Impression: ANTERIOR INFARCT, OLD Electronically Signed By: Esau Sinclair 15-Oct-2016 08:52:57
--- NOTE | 2016-10-13 16:39 | GHP ---
DATE OF ADMISSION: 10/13/2016 CHIEF COMPLAINT: Diarrhea and confusion. HISTORY: This is an 86-year-old man with past medical history of coronary artery disease and chroni c kidney disease with baseline creatinine approximately 2, who presents with recurrent severe diarrh ea and confusion in the setting of currently undergoing treatment for Clostridium difficile colitis. The patient was currently on day 9 of treatment with oral vancomycin when he experienced recurrenc e of diarrhea. Prior to this, apparently he had been having no diarrhea at all. He has also had so me confusion and difficulty urinating. His daughter believes that he is likely dehydrated. At the time of my evaluation, patient is somewhat agitated and confused but has no specific complaints, tho [facility] history is limited by his confusion, PAST MEDICAL HISTORY: 1. Coronary artery disease with a remote history of stent placement. 2. Chronic kidney disease, baseline creatinine of 2. 3. Hypertension. 4. Hyperlipidemia. 5. History of atrial fibrillation. 6. Suspected underlying dementia though this has been unclear per family. 7. BPH. 8. Anemia. PAST SURGICAL HISTORY: 1. Cardiac stents. 2. Frontal sinus surgery. 3. Cataract surgery. FAMILY HISTORY: Both parents are . SOCIAL HISTORY: The patient is a retired pharmacist. He currently lives in [facility]. Daughters is very involved in his care and accompanies him here today. MEDICATIONS: 1. Ranitidine. 2. Multivitamin. 3. Losartan. 4. Lasix. 5. Iron. 6. Amlodipine. 7. Tamsulosin. 8. Potassium. 9. Atorvastatin. 10. MiraLAX. 11. Calcitriol. 12. Calcium carbonate. 13. Clindamycin cream. 14. Allopurinol. 15. Propranolol. 16. Oral vancomycin for which he was scheduled to complete therapy tomorrow. 17. Aspirin. ALLERGIES: Ibuprofen. PHYSICAL EXAM: VITAL SIGNS: BP 145/85, heart rate 101, respiratory rate 16, O2 saturating 96% on r oom air, temperature is 36.8. GENERAL APPEARANCE: Patient is awake and alert. He is mildly agitat ed. EYES: Anicteric. CARDIOVASCULAR: Regular rate and rhythm. No MRG. PULMONARY: CTA bilatera lly. ABDOMEN: Soft, nontender. Positive bowel sounds. : Normal external genitalia. There is stool on his thighs and rectal region. EXTREMITIES: No clubbing, cyanosis, or edema. SKIN: Dry, warm, well perfused. NEURO/PSYCH: Patient is oriented to self, somewhat agitated. CLINICAL DATA: Labs reviewed. Significant for a white blood cell count of 14.2, up from 4.8, hemat ocrit of 34.3, platelets of 236. Coags are unremarkable. Chemistry is notable for a creatinine of 2.4, BUN of 50, up from 29 and 1.9. Clostridium difficile toxin was negative. ASSESSMENT/PLAN: This is an 86-year-old man with past medical history of coronary artery disease, a nd recent diagnosis of Clostridium difficile, currently undergoing treatment for that, who presents with acute encephalopathy, sepsis and recurrent diarrhea. 1. Diarrhea. Given recent recurrence in the setting of undergoing treatment for Clostridium diffic ile, have concerns for possible resistance. Clostridium difficile toxin was negative: However, quer y if this still is the underlying cause. Will send for stool culture and gastrointestinal pathogen panel. Will continue vancomycin at increased dose. 2. Acute encephalopathy in the setting of hypovolemia, diarrhea and sepsis and likely related to sa me. He does not have any focal neurologic findings. He did have recent MRI findings of likely suba cute stroke, though this was somewhat unclear on review by Neurology. Will continue monitoring for now. I do suspect patient has underlying dementia, though unclear of the severity of that. 3. Sepsis. Patient with new leukocytosis from 2 days prior, as well as tachycardia in the setting of presumed GI source of infection. Likely Clostridium difficile though stool culture pending. He is currently hemodynamically stable, though will obtain a lactic acid level. Will continue current treatment pending further information. 4. Acute kidney injury on chronic kidney disease. Likely prerenal with a baseline creatinine close r to 2. He does appear dry on exam. Will continue IV fluids. 5. Anemia. This is chronic and H and H currently higher than his usual baseline, likely secondary to hemoconcentration. Will continue to trend. 6. Coronary artery disease. Doubt that this is related to acute coronary syndrome, though given hi s confusion and limited ability to provide history, this is a possibility. Will obtain EKG and trop onins just for further evaluation. 7. Code status is DNR. 8. Disposition. Observation status for now, although given his multiple comorbid conditions he may indeed require greater than a 48-hour stay. 9. Patient is new to my care. Old records were reviewed, including recent discharge summary and Ne urology consultation. Further history is obtained from patient's daughter present at bedside. /[id number]/MODL
[2016-10-13 17:19] LABS: ALANINE AMINOTRANSFERASE 19 IU/L (21-72); ALBUMIN 3.6 g/dL (3.5-5.0); ALKALINE PHOSPHATASE 87 IU/L (38-126); ASPARTATE AMINOTRANSFERASE 28 IU/L (17-59); BILIRUBIN-CONJUGATED 0.4 mg/dL (0.0-0.5); BILIRUBIN-UNCONJUGATED 0.6 mg/dL (0.0-1.1); TOTAL PROTEIN 6.6 g/dL (6.3-8.2)
[2016-10-13] MEDS: FAMOTIDINE 20 MG TAB PO SCH (18:08)
[2016-10-13] MEDS: POLYETHYLENE GLYCOL 3350 17 GM PKT PO SCH (18:08)
[2016-10-13] MEDS: ATORVASTATIN CALCIUM 10 MG TAB PO SCH (18:08)
[2016-10-13] MEDS: ALLOPURINOL 100 MG TAB PO SCH (18:08)
[2016-10-13] MEDS ORDERED: CEFEPIME HCL 2 GM in D5W 100 ML IV SCH (19:46)
[2016-10-13 20:51] LABS: ANION GAP 13 mEq/L (8-16); CALCIUM 9.4 mg/dL (8.5-10.4); CARBON DIOXIDE 19 mEq/l (22-31); CHLORIDE 109 mEq/L (97-110); CREATININE 2.1 mg/dL (0.7-1.3); GLOMERULAR FILTRATION RATE 30; GLUCOSE 108 mg/dL (70-100); POTASSIUM 4.3 mEq/L (3.5-5.2); SODIUM 141 mEq/L (134-144)
[2016-10-13] MEDS: PROPRANOLOL HCL 20 MG TAB PO SCH (20:55)
[2016-10-13] MEDS: Azelastine/Fluticasone [Dymista Nasal Spray] EACHNARE SCH (20:59)
[2016-10-13] MEDS ORDERED: Azelastine/Fluticasone [Dymista Nasal Spray] EACHNARE SCH (21:00)
[2016-10-13] MEDS: CLINDAMYCIN 1% GEL TP SCH (21:00)
[2016-10-13] MEDS: HEPARIN 5,000 UNIT/0.5 ML SYR SC SCH (21:56)
[2016-10-13] MEDS: CEFEPIME HCL 2 GM in D5W 100 ML IV SCH (21:57)
[2016-10-14] MEDS: oxyCODONE IR 5 MG TAB PO PRN (01:48)
[2016-10-14] MEDS: NS 1,000 ML IV SCH ×3 (03:23→23:45)
[2016-10-14] MEDS: VANCOMYCIN 125 MG/2.5 ML UDL PO SCH ×4 (06:05→20:34)
[2016-10-14] MEDS: HEPARIN 5,000 UNIT/0.5 ML SYR SC SCH ×3 (06:06→22:00)
[2016-10-14 06:38] LABS: % IMMATURE GRANULYOCYTES 1.6 % (0.0-1.1); ADD DIFF? NO; ADD MORPH? NO; ADD SCAN? NO; ATYPICAL LYMPHOCYTE FLAG 0 (0-99); FRAGMENT RBC FLAG 0 (0-99); HEMATOCRIT 25.7 % (40.0-51.0); HEMOGLOBIN 8.8 g/dL (13.7-17.5); LEFT SHIFT FLG 10 (0-99); LIPEMIA HEMOLYSIS FLAG 90 (0-99); MEAN CELL HEMOGLOBIN 33.1 pg (27.9-34.1); MEAN CELL HEMOGLOBIN CONCENTR. 34.2 g/dL (32.4-36.7); MEAN CELL VOLUME 96.6 fL (81.5-99.8); MEAN PLATELET VOLUME 9.6 fL (8.7-11.7); PLATELET CLUMPS FLAG 10 (0-99); PLATELET COUNT 158 10^3/uL (150-400); RED BLOOD CELL COUNT 2.66 10^6/uL (4.40-6.38); RED CELL DISTRIBUTION WIDTH 15.8 % (11.5-15.2)
[2016-10-14 06:57] LABS: ANION GAP 8 mEq/L (8-16); CALCIUM 8.8 mg/dL (8.5-10.4); CARBON DIOXIDE 19 mEq/l (22-31); CHLORIDE 114 mEq/L (97-110); CREATININE 2.1 mg/dL (0.7-1.3); GLOMERULAR FILTRATION RATE 30; GLUCOSE 78 mg/dL (70-100); MAGNESIUM 1.8 mg/dL (1.6-2.3); POTASSIUM 4.3 mEq/L (3.5-5.2); SODIUM 141 mEq/L (134-144)
[2016-10-14] MEDS: ASPIRIN 325 MG TAB PO SCH (11:01)
[2016-10-14] MEDS: PROPRANOLOL HCL 20 MG TAB PO SCH ×2 (11:01→20:35)
[2016-10-14] MEDS: MULTIVITAMINS W-MINERALS 1 EACH TAB PO SCH ×2 (11:01→11:19)
[2016-10-14] MEDS: FERROUS SULFATE 325 MG TAB PO SCH (11:01)
[2016-10-14] MEDS: CALCITRIOL 0.25 MCG CAP PO SCH (11:01)
[2016-10-14] MEDS: Azelastine/Fluticasone [Dymista Nasal Spray] EACHNARE SCH ×2 (11:06→20:36)
[2016-10-14] MEDS: CLINDAMYCIN 1% GEL TP SCH ×2 (11:07→20:36)
[2016-10-14] MEDS: PSYLLIUM METAMUCIL 1 PKT PO SCH (11:18)
--- NOTE | 2016-10-14 13:58 | HOSPPROG ---
Hospitalist Progress Note Assessment/Plan: DIAGNOSES: -C difficile infection with suspected failure of standard treatment with low- dose oral vancomycin -SIRS criteria question sepsis versus dehydration and other issues as cause -acute on chronic kidney disease, acute component due to hemodynamic effects of dehydration -advanced dementia -gait instability -chronic heart disease with coronary syndrome status post stents and AFib, both stable Today the patient has improved with increased alertness, dramatic decrease in stooling, marked decrease in white blood cell count, absence of fever. He still has very poor appetite so far though is asking for food PLANS: -continue high-dose oral vancomycin - continue IV hydration -fall risk precautions - DVT prophylaxis SUBJECTIVE: The patient at this time is somewhat disoriented and delusional He denies physical complaints but I am not sure that this is a reliable conversation at this point as he is unable to focus on his own symptoms OBJECTIVE Vitals reviewed: Stable without fever Exam: alert oriented skin warm dry color ok resps not labored lungs clear BSs heart regular abd soft nondistended nontender, bowel sounds present limbs warm, no edema iv site ok Laboratory data: Improved white blood cell count 6000 in Creatinine down to 2.1 which is near his recent baseline of 1.8 Objective: Vital Signs Temp Pulse Resp BP Pulse Ox 36.9 C 76 13 138/77 H 96 10/14/16 07:24 10/14/16 07:24 10/14/16 07:24 10/14/16 07:24 10/14/16 07:24 Laboratory Results 10/14/16 05:58 10/14/16 05:58 10/13/16 10/14/16 10/15/16 06:59 06:59 06:59 Intake Total 1906 Output Total 250 Balance 1656 PT 13.9 SEC (12.0-15.0) 10/13/16 11:15 INR 1.08 (0.83-1.16) 10/13/16 11:15 ICD10 Worksheet Patient Problems: Problems Problem Status Onset Fever and chills Acute Leukocytosis Acute Recurrent Clostridium difficile diarrhea Acute Acute on chronic renal insufficiency Acute C. difficile diarrhea Acute ~10/03/16 Dehydration Acute Diarrhea Acute Diverticulitis large intestine Acute Hypotension Acute Mental status change Acute Renal failure Acute Syncope Acute Vomiting Acute
[2016-10-14] MEDS: ATORVASTATIN CALCIUM 10 MG TAB PO SCH (17:27)
[2016-10-14] MEDS: ALLOPURINOL 100 MG TAB PO SCH (17:27)
[2016-10-14] MEDS: TAMSULOSIN HCL 0.4 MG CAP PO SCH (17:27)
[2016-10-14] MEDS: FAMOTIDINE 20 MG TAB PO SCH (17:27)
[2016-10-14] MEDS: POLYETHYLENE GLYCOL 3350 17 GM PKT PO SCH (17:28)
[2016-10-14] MEDS: CEFEPIME HCL 2 GM in D5W 100 ML IV SCH (20:35)
[2016-10-15] MEDS: oxyCODONE IR 5 MG TAB PO PRN ×2 (00:57→22:40)
[2016-10-15] MEDS: HEPARIN 5,000 UNIT/0.5 ML SYR SC SCH ×3 (06:00→20:35)
[2016-10-15] MEDS: PSYLLIUM METAMUCIL 1 PKT PO SCH (08:52)
[2016-10-15] MEDS: VANCOMYCIN 125 MG/2.5 ML UDL PO SCH ×4 (08:52→21:57)
[2016-10-15] MEDS: FERROUS SULFATE 325 MG TAB PO SCH ×2 (08:52→09:41)
[2016-10-15] MEDS: MULTIVITAMINS W-MINERALS 1 EACH TAB PO SCH ×2 (08:52→09:41)
[2016-10-15] MEDS: PROPRANOLOL HCL 20 MG TAB PO SCH ×2 (08:52→21:56)
[2016-10-15] MEDS: ASPIRIN 325 MG TAB PO SCH (08:53)
[2016-10-15] MEDS: Azelastine/Fluticasone [Dymista Nasal Spray] EACHNARE SCH ×2 (08:54→21:57)
[2016-10-15] MEDS: CLINDAMYCIN 1% GEL TP SCH ×2 (08:56→20:34)
--- NOTE | 2016-10-15 16:39 | HOSPPROG ---
Hospitalist Progress Note Assessment/Plan: DIAGNOSES: -C difficile infection with suspected failure of standard treatment with low- dose oral vancomycin -SIRS criteria question sepsis versus dehydration and other issues as cause -acute on chronic kidney disease, acute component due to hemodynamic effects of dehydration -dementia -gait instability -chronic heart disease with coronary syndrome status post stents and AFib, both stable Overall little change between today and yesterday he still remains very weak with significant gait instability as well as ongoing delirium. he is not really eating but is taking in p.o. fluids PLANS: -continue high-dose oral vancomycin -continue IV hydration -fall risk precautions -DVT prophylaxis SUBJECTIVE: The patient remains quite disoriented and delusional He denies physical complaints but I still am not sure that this is a reliable conversation at this point as he is unable to focus on his own symptoms Per nurses and family he is eating no solid food but is drinking some fluids. OBJECTIVE Vitals reviewed: Some intermittent systolic hypertension otherwise stable without fever Exam: alert still quite disoriented and confused but is awake and interactive, mildly agitated, no tremor skin warm dry color ok resps not labored lungs clear BSs heart regular abd soft nondistended nontender, bowel sounds present limbs warm, no edema iv site ok Laboratory data: Creatinine remains unchanged today at 2.1 which is still above his recent baseline of 1.8 Objective: Vital Signs Temp Pulse Resp BP Pulse Ox 35.8 C L 77 18 157/91 H 97 10/15/16 08:00 10/15/16 08:52 10/15/16 08:00 10/15/16 13:17 10/15/16 08:00 10/14/16 10/15/16 10/16/16 06:59 06:59 06:59 Intake Total 2357 Output Total 950 550 Balance 1407 -550 PT 13.9 SEC (12.0-15.0) 10/13/16 11:15 INR 1.08 (0.83-1.16) 10/13/16 11:15 ICD10 Worksheet Patient Problems: Problems Problem Status Onset Fever and chills Acute Leukocytosis Acute Recurrent Clostridium difficile diarrhea Acute Acute on chronic renal insufficiency Acute C. difficile diarrhea Acute ~10/03/16 Dehydration Acute Diarrhea Acute Diverticulitis large intestine Acute Hypotension Acute Mental status change Acute Renal failure Acute Syncope Acute Vomiting Acute
[2016-10-15] MEDS: NS 1,000 ML IV SCH (18:03)
[2016-10-15] MEDS: FAMOTIDINE 20 MG TAB PO SCH (18:31)
[2016-10-15] MEDS: ALLOPURINOL 100 MG TAB PO SCH (18:31)
[2016-10-15] MEDS: POLYETHYLENE GLYCOL 3350 17 GM PKT PO SCH (18:32)
[2016-10-15] MEDS: ATORVASTATIN CALCIUM 10 MG TAB PO SCH (18:50)
[2016-10-15] MEDS: CEFEPIME HCL 2 GM in D5W 100 ML IV SCH (21:56)
[2016-10-16] MEDS ORDERED: OLANZapine 10 MG/2 ML VIAL IM ONE (02:01)
[2016-10-16] MEDS: oxyCODONE IR 5 MG TAB PO PRN ×2 (04:45→21:28)
[2016-10-16] MEDS: HEPARIN 5,000 UNIT/0.5 ML SYR SC SCH ×3 (05:33→22:33)
[2016-10-16] MEDS: PROPRANOLOL HCL 20 MG TAB PO SCH ×2 (07:57→21:27)
[2016-10-16] MEDS: CALCITRIOL 0.25 MCG CAP PO SCH (08:00)
[2016-10-16] MEDS: ASPIRIN 325 MG TAB PO SCH (08:00)
[2016-10-16] MEDS: PSYLLIUM METAMUCIL 1 PKT PO SCH (08:00)
[2016-10-16] MEDS: MULTIVITAMINS W-MINERALS 1 EACH TAB PO SCH (08:00)
[2016-10-16] MEDS: FERROUS SULFATE 325 MG TAB PO SCH (08:00)
[2016-10-16] MEDS: VANCOMYCIN 125 MG/2.5 ML UDL PO SCH ×4 (08:04→21:27)
[2016-10-16] MEDS: Azelastine/Fluticasone [Dymista Nasal Spray] EACHNARE SCH ×2 (10:59→22:32)
[2016-10-16] MEDS: CLINDAMYCIN 1% GEL TP SCH ×2 (10:59→22:33)
[2016-10-16] MEDS: NS 1,000 ML IV SCH (15:12)
--- NOTE | 2016-10-16 18:00 | HOSPPROG ---
Hospitalist Progress Note Assessment/Plan: DIAGNOSES: -C difficile infection with suspected failure of standard treatment with low- dose oral vancomycin -SIRS criteria question sepsis versus dehydration and other issues as cause -acute on chronic kidney disease, acute component due to hemodynamic effects of dehydration -dementia -gait instability -chronic heart disease with coronary syndrome status post stents and AFib, both stable Remains disoriented today but is calmer today and interacting better with nursing staff. He actually is doing much better in terms of strength and walk significantly in the hallway today. Eating a little bit better but still poor appetite PLANS: -continue high-dose oral vancomycin -continue IV hydration encouraging p.o. intake -fall risk precautions -DVT prophylaxis - recheck chemistry and CBC tomorrow morning SUBJECTIVE: he is still fairly disoriented but is able to focus a little bit more on his current symptoms. He still is very surprised to hear that he is in hospital. Per nurse's he is interacting much more calmly and productively with staff today OBJECTIVE Vitals reviewed: Some intermittent systolic hypertension during periods of anxiety but otherwise stable without fever Exam: more relaxed this evening, still surprised to hear that he is in the hospital. A bit better oriented skin warm dry color ok resps not labored lungs clear BSs heart regular abd soft nondistended nontender, bowel sounds present limbs warm, no edema iv site ok Objective: Vital Signs Temp Pulse Resp BP Pulse Ox 36.9 C 79 18 146/94 H 96 10/16/16 04:00 10/16/16 08:00 10/16/16 08:00 10/16/16 12:18 10/16/16 08:00 10/15/16 10/16/16 10/17/16 06:59 06:59 06:59 Intake Total 2357 1462 Output Total 950 1025 Balance 1407 437 PT 13.9 SEC (12.0-15.0) 10/13/16 11:15 INR 1.08 (0.83-1.16) 10/13/16 11:15 ICD10 Worksheet Patient Problems: Problems Problem Status Onset Fever and chills Acute Leukocytosis Acute Recurrent Clostridium difficile diarrhea Acute Acute on chronic renal insufficiency Acute C. difficile diarrhea Acute ~10/03/16 Dehydration Acute Diarrhea Acute Diverticulitis large intestine Acute Hypotension Acute Mental status change Acute Renal failure Acute Syncope Acute Vomiting Acute
[2016-10-16] MEDS: TAMSULOSIN HCL 0.4 MG CAP PO SCH (18:11)
[2016-10-16] MEDS: ATORVASTATIN CALCIUM 10 MG TAB PO SCH (18:11)
[2016-10-16] MEDS: ALLOPURINOL 100 MG TAB PO SCH (18:11)
[2016-10-16] MEDS: POLYETHYLENE GLYCOL 3350 17 GM PKT PO SCH (18:11)
[2016-10-16] MEDS: FAMOTIDINE 20 MG TAB PO SCH (18:11)
[2016-10-16] MEDS: CEFEPIME HCL 2 GM in D5W 100 ML IV SCH (21:27)
[2016-10-17] MEDS: oxyCODONE IR 5 MG TAB PO PRN ×2 (02:21→20:30)
[2016-10-17] MEDS: NS 1,000 ML IV SCH (02:21)
[2016-10-17] MEDS ORDERED: HALOPERIDOL LACT 5 MG/ML INJ IVP ONE (04:44)
[2016-10-17] MEDS ORDERED: HALOPERIDOL LACT 5 MG/ML INJ ONE (04:45)
[2016-10-17] MEDS: VANCOMYCIN 125 MG/2.5 ML UDL PO SCH ×5 (06:04→20:55)
[2016-10-17] MEDS: HEPARIN 5,000 UNIT/0.5 ML SYR SC SCH ×3 (06:04→20:31)
[2016-10-17] MEDS: FERROUS SULFATE 325 MG TAB PO SCH (09:21)
[2016-10-17] MEDS: PROPRANOLOL HCL 20 MG TAB PO SCH ×2 (09:21→20:31)
[2016-10-17] MEDS: MULTIVITAMINS W-MINERALS 1 EACH TAB PO SCH (09:21)
[2016-10-17] MEDS: ASPIRIN 325 MG TAB PO SCH (09:21)
[2016-10-17] MEDS: CLINDAMYCIN 1% GEL TP SCH ×2 (09:22→20:56)
[2016-10-17] MEDS: PSYLLIUM METAMUCIL 1 PKT PO SCH (09:22)
[2016-10-17] MEDS: Azelastine/Fluticasone [Dymista Nasal Spray] EACHNARE SCH ×2 (09:23→20:54)
[2016-10-17 10:27] LABS: % IMMATURE GRANULYOCYTES 1.7 % (0.0-1.1); ABSOLUTE IMMATURE GRANULOCYTES 0.11 10^3/uL (0.00-0.10); ADD DIFF? NO; ADD MORPH? NO; ADD SCAN? NO; ATYPICAL LYMPHOCYTE FLAG 30 (0-99); FRAGMENT RBC FLAG 0 (0-99); HEMATOCRIT 32.8 % (40.0-51.0); HEMOGLOBIN 11.4 g/dL (13.7-17.5); LEFT SHIFT FLG 10 (0-99); LIPEMIA HEMOLYSIS FLAG 90 (0-99); MEAN CELL HEMOGLOBIN 32.2 pg (27.9-34.1); MEAN CELL HEMOGLOBIN CONCENTR. 34.8 g/dL (32.4-36.7); MEAN CELL VOLUME 92.7 fL (81.5-99.8); MEAN PLATELET VOLUME 9.5 fL (8.7-11.7); PLATELET CLUMPS FLAG 10 (0-99); PLATELET COUNT 177 10^3/uL (150-400); RED BLOOD CELL COUNT 3.54 10^6/uL (4.40-6.38); RED CELL DISTRIBUTION WIDTH 15.5 % (11.5-15.2)
[2016-10-17 10:50] LABS: ANION GAP 11 mEq/L (8-16); CALCIUM 10.1 mg/dL (8.5-10.4); CARBON DIOXIDE 20 mEq/l (22-31); CHLORIDE 111 mEq/L (97-110); CREATININE 1.6 mg/dL (0.7-1.3); GLOMERULAR FILTRATION RATE 41; GLUCOSE 77 mg/dL (70-100); POTASSIUM 4.1 mEq/L (3.5-5.2); SODIUM 142 mEq/L (134-144)
[2016-10-17] MEDS: TAMSULOSIN HCL 0.4 MG CAP PO SCH (17:34)
[2016-10-17] MEDS: ATORVASTATIN CALCIUM 10 MG TAB PO SCH (17:34)
[2016-10-17] MEDS: FAMOTIDINE 20 MG TAB PO SCH (17:35)
[2016-10-17] MEDS: ALLOPURINOL 100 MG TAB PO SCH (17:41)
[2016-10-17] MEDS: POLYETHYLENE GLYCOL 3350 17 GM PKT PO SCH (17:42)
--- NOTE | 2016-10-17 17:58 | HOSPPROG ---
Hospitalist Progress Note Assessment/Plan: DIAGNOSES: -C difficile infection with suspected failure of standard treatment with low- dose oral vancomycin -SIRS criteria question sepsis versus dehydration and other issues as cause -acute on chronic kidney disease, acute component due to hemodynamic effects of dehydration -severe acute delirium due to above; this is gradually improving; it got worse with haldol given last night -gait instability -chronic heart disease with coronary syndrome status post stents and AFib, both stable Remains disoriented today. This morning he was sedated and more confused would not eat or drink and was unable to stand after eating well and walking well yesterday. This appears to be due to some Haldol that he was given last night during a period of increased agitation. He is more alert and calm again this afternoon and interacting well with nursing staff. However he is not done as well with walking yet so far today. He still has not eaten anything today per his son-in-law. PLANS: -Avoid any sedating medicines -continue high-dose oral vancomycin -continue IV hydration encouraging p.o. intake -fall risk precautions -DVT prophylaxis - recheck chemistry and CBC tomorrow morning SUBJECTIVE: he is still fairly disoriented but is able to focus a little bit more on his current symptoms. He still is very surprised to hear that he is in hospital. Per nurse's he is interacting much more calmly and productively with staff today OBJECTIVE Vitals reviewed: Some intermittent systolic hypertension during periods of anxiety but otherwise stable without fever Exam: more relaxed this evening, still surprised to hear that he is in the hospital. skin warm dry color ok resps not labored lungs clear BSs heart regular abd soft nondistended nontender, bowel sounds present limbs warm, no edema iv site ok Objective: Vital Signs Temp Pulse Resp BP Pulse Ox 36.5 C 80 14 167/96 H 96 10/17/16 16:00 10/17/16 16:00 10/17/16 16:00 10/17/16 16:00 10/17/16 16:00 Laboratory Results 10/17/16 10:05 10/17/16 10:05 10/16/16 10/17/16 10/18/16 06:59 06:59 06:59 Intake Total 1462 480 400 Output Total 1025 500 Balance 437 -20 400 PT 13.9 SEC (12.0-15.0) 10/13/16 11:15 INR 1.08 (0.83-1.16) 10/13/16 11:15 ICD10 Worksheet Patient Problems: Problems Problem Status Onset Fever and chills Acute Leukocytosis Acute Recurrent Clostridium difficile diarrhea Acute Acute on chronic renal insufficiency Acute C. difficile diarrhea Acute ~10/03/16 Dehydration Acute Diarrhea Acute Diverticulitis large intestine Acute Hypotension Acute Mental status change Acute Renal failure Acute Syncope Acute Vomiting Acute
[2016-10-17] MEDS: CEFEPIME HCL 2 GM in D5W 100 ML IV SCH (20:30)
[2016-10-17 21:06] VITALS: BP 162/105; PULSE 83; RESP 19; TEMP 97.5; O2SAT 94
[2016-10-18] MEDS: HEPARIN 5,000 UNIT/0.5 ML SYR SC SCH (05:17)
[2016-10-18] MEDS: VANCOMYCIN 125 MG/2.5 ML UDL PO SCH ×2 (05:17→09:05)
[2016-10-18] MEDS: PSYLLIUM METAMUCIL 1 PKT PO SCH (09:05)
[2016-10-18] MEDS: PROPRANOLOL HCL 20 MG TAB PO SCH (09:06)
[2016-10-18] MEDS: ASPIRIN 325 MG TAB PO SCH (09:06)
[2016-10-18] MEDS: FERROUS SULFATE 325 MG TAB PO SCH (09:06)
[2016-10-18] MEDS: MULTIVITAMINS W-MINERALS 1 EACH TAB PO SCH (09:06)
[2016-10-18] MEDS: CLINDAMYCIN 1% GEL TP SCH (09:08)
[2016-10-18] MEDS: Azelastine/Fluticasone [Dymista Nasal Spray] EACHNARE SCH (09:08)
--- NOTE | 2016-10-18 09:13 | PDDCSUM ---
Discharge Summary Discharge Summary: DISCHARGE DIAGNOSES: -C difficile infection with suspected failure of standard treatment with low- dose oral vancomycin, resolving at higher dose vancomycin -SIRS criteria, question sepsis versus dehydration as cause -acute on chronic kidney disease, acute component due to hemodynamic effects of dehydration -severe acute delirium due to above -dementia -gait instability -chronic heart disease with coronary syndrome status post stents and AFib, both stable HOSPITAL COURSE SUMMARY: This patient had previously been here for treatment of a case of Clostridium difficile colitis. He improved on oral vancomycin therapy at that time and went home but came back here on day 9 of therapy with sudden onset of fevers crampy abdominal pain, diarrhea, dehydration, acute renal failure. He had severe acute encephalopathy. The patient was treated with IV fluids and an increased dose of oral vancomycin at 250 mg twice daily. He responded quite well to this although his renal insufficiency and delirium were fairly slow to improve. By this time he is eating well up walking in the hallway, but is still more confused than usual. His diarrhea has stopped and there is no fever. He is felt stable for discharge to home at this time. He has quite a bit of family and termite exterminator helper at home to look after him in his assisted living apartment. He is safe for walking. At the time of admission there is a question of possible pneumonia. As his hospital course has gone on it is felt that this did not actually represent pneumonia. MEDICATION CHANGES: Vancomycin is increased to 250 mg p.o. four times daily. This is to go for 5 more days after discharge FOLLOW-UP PLAN: With his primary care physician in 1-2 weeks Greater than 35 minutes bedside and care coordination time today
--- NOTE | 2016-10-18 09:13 | PDIAF ---
- Diagnosis Diagnosis: acute encephalopathy, c diff colitis, ? sepsis, gait instability Code Status: Do Not Resuscitate - Medication Management Discharge Medications: Medications to Continue on Transfer Atorvastatin Calcium [Lipitor 10 mg (*)] 10 mg PO DAILY@182909/15/16 [Last Taken 10/12/16] Azelastine/Fluticasone [Dymista Nasal [place]] 1 spray EACHNARE BID 09/15/16 [ Last Taken 10/12/16 20:00] Calcitriol [Calcitriol (*)] 0.25 mcg PO MOWEFR@09/15/16 [Last Taken 10/12/16] Ferrous Sulfate [Ferrous Sulf 325 MG (*)] 325 mg PO DAILY@72909/15/16 [Last Taken 10/12/16] Furosemide [Lasix 20 MG (*)] 20 mg PO DAILY@72909/15/16 [Last Taken 10/12/16] Herbals/Supplements -Info Only 1 ea PO DAILY 09/15/16 [Last Taken 10/02/16] Losartan Potassium [Cozaar 50 mg (*)] 50 mg PO DAILY@72909/15/16 [Last Taken 10/12/16] Polyethylene Glycol 3350 [Miralax 17 gm (*)] 17 gm PO DAILY@182909/15/16 [Last Taken 10/12/16] Potassium Cl [Klor-Con 10 meq (RX)] 10 meq PO Q2D@72909/15/16 [Last Taken ] Propranolol HCl [Inderal 20mg (*)] 20 mg PO BID@09/15/16 [Last Taken 10/12 20:00] Ranitidine HCl 300 mg PO DAILY@182909/15/16 [Last Taken 10/12/16] Tamsulosin HCl [Flomax 0.4 MG (*)] 0.4 mg PO Q2D@182909/15/16 [Last Taken 10/12] amLODIPine BESYLATE [Norvasc 2.5 mg (*)] 2.5 mg PO DAILY@09/15/16 [Last Taken 10/12/16] Allopurinol [Allopurinol 300 MG (RX)] 200 mg PO DAILY@182910/03/16 [Last Taken 10/12/16] Aspirin [Aspirin 325 mg (*)] 325 mg PO DAILY #30 tab 10/06/16 [Last Taken ] Acetaminophen [Tylenol 325mg (*)] 650 mg PO Q4HRS PRN 10/13/16 [Last Taken Unknown] Calcium Carbonate [Tums 500MG (*)] 500 mg PO DAILY PRN 10/13/16 [Last Taken Unknown] Clindamycin 1% [Cleocin 1% Gel] 1 najma TP BID 10/13/16 [Last Taken 10/12/16 20:00 ] Multivitamin with Minerals [Multiple Vitamin] 1 each PO DAILY@0730 10/13/16 [ Last Taken 10/13/16] Psyllium Husk (with Sugar) [Metamucil Packet] 1 each PO DAILY 10/13/16 [Last Taken 10/12/16] Tetrahydrozoline 0.05% [Visine (*)] 1 drop EACHEYE DAILY PRN 10/13/16 [Last Taken Unknown] Vancomycin [Vancocin Oral Liquid] 250 mg PO QID #100 ml 10/18/16 [Last Taken Unknown] Discharge Medications: Refer to the Discharge Home Medication list for PRN reason. - Orders Services needed: Home Care, Registered Nurse, Certified Library Clerk Home Care Face to Face: I certify that this patient was under my care and that I had the required [id number] encounter meeting the encounter requirements on the discharge day. My findings support the fact that the patient is homebound as defined in CMS Chapter 7 Medicare Benefits Manual 30.1.1, The condition of the patient is such that there exists a normal inability to leave home and consequently, leaving home would require a considerable and taxing effort. Diet Recommendation: no restrictions on diet Diet Texture: Regular Texture Diet - Follow Up Care Current Providers and Referrals: Patient,NotPresent [Unknown] - As per Instructions
== END 2016-10-18 11:34 | disposition home health service (06) | DRG 371 ==
LOC: EDUNIT# → INTOOBSV 12:44 → F3E 14:05 → OBSVTOIN 10-14 16:07 → FOB 10-14 16:12 → F3E 10-14 16:12
PROVIDERS: ADMIT Internal Medicine; ATTEND Internal Medicine
DX: A04.7 Enterocolitis due to Clostridium difficile (principal); G93.40 Encephalopathy, unspecified; N17.9 Acute kidney failure, unspecified; N18.3 Chronic kidney disease, stage 3 (moderate); I12.9 Hypertensive chronic kidney disease with stage 1 through stage 4 chronic kidney disease, or unspecified chronic kidney disease; J44.9 Chronic obstructive pulmonary disease, unspecified; I25.10 Atherosclerotic heart disease of native coronary artery without angina pectoris; I48.91 Unspecified atrial fibrillation; M10.9 Gout, unspecified; F03.90 Unspecified dementia, unspecified severity, without behavioral disturbance, psychotic disturbance, mood disturbance, and anxiety; E78.5 Hyperlipidemia, unspecified; Z66 Do not resuscitate; Z95.5 Presence of coronary angioplasty implant and graft
CPT/HCPCS: 92526-GN; 92610-GN; 97112-GP; 97116-GP; 97162-GP; 97166-GO; 97535-GO; G0378; G8978-GP-CK; G8979-GP-CI; G8987-GO-CL; G8988-GO-CI; G8996-GN-CK; G8997-GN-CI; G8998-GN-CI; J0692

== ENCOUNTER 2016-12-17 11:05 | Emergency (ER) | payer OTHER, BC ==
--- NOTE | 2016-12-17 11:18 | CPEKG ---
Heart Rate: 52 RR Interval: 1154 P-R Interval: 349 QRSD Interval: 84 QT Interval: 496 QTC Interval: 462 P [place]: 0 QRS [place]: -29 T Wave [place]: -14 EKG Severity - ABNORMAL ECG - EKG Impression: SINUS RHYTHM EKG Impression: FIRST DEGREE AV BLOCK EKG Impression: PROBABLE INFERIOR INFARCT, AGE INDETERMINATE EKG Impression: BORDERLINE R WAVE PROGRESSION, ANTERIOR LEADS Electronically Signed By: Geovani Duron 17-Dec-2016 11:40:25
[2016-12-17] MEDS ORDERED: NS 500 ML IV ONE (11:23)
[2016-12-17 11:31] LABS: % IMMATURE GRANULYOCYTES 1.2 % (0.0-1.1); ABSOLUTE IMMATURE GRANULOCYTES 0.08 10^3/uL (0.00-0.10); ADD DIFF? NO; ADD MORPH? NO; ADD SCAN? NO; ATYPICAL LYMPHOCYTE FLAG 0 (0-99); FRAGMENT RBC FLAG 0 (0-99); HEMATOCRIT 30.8 % (40.0-51.0); HEMOGLOBIN 10.8 g/dL (13.7-17.5); LEFT SHIFT FLG 10 (0-99); LIPEMIA HEMOLYSIS FLAG 90 (0-99); MEAN CELL HEMOGLOBIN CONCENTR. 35.1 g/dL (32.4-36.7); MEAN CELL VOLUME 94.2 fL (81.5-99.8); MEAN PLATELET VOLUME 9.3 fL (8.7-11.7); PLATELET CLUMPS FLAG 10 (0-99); PLATELET COUNT 212 10^3/uL (150-400); RED BLOOD CELL COUNT 3.27 10^6/uL (4.40-6.38); RED CELL DISTRIBUTION WIDTH 15.2 % (11.5-15.2)
--- NOTE | 2016-12-17 11:50 | EDPHY ---
H & P Time Seen by Provider: 12/17/16 11:07 HPI/ROS: CHIEF COMPLAINT: Near syncope HISTORY OF PRESENT ILLNESS: Patient was doing well today. He has been at home and was with his daughter when he felt suddenly an urge to use the bathroom. He went to the toilet and had a bowel movement and per his daughter was "in an out" of consciousness for couple of minutes. In the emergency department he feels fine and denies any medical complaints. REVIEW OF SYSTEMS: Eye: no change in vision, when asked if he has double vision or only sees 1 of me he says "1, that's enough isn't it" ENT: no sore throat Cardiac: no chest pain or syncope Pulmonary: no cough or SOB Abdomen: no vomiting, diarrhea, abdominal pain; some chronically decreased oral intake. Musculoskeletal: no back pain Skin: no rash Neuro: no headache Constitutional: no fever : no urinary symptoms A comprehensive 10 point review of systems is otherwise negative aside from elements mentioned in the history of present illness. PAST MEDICAL HISTORY: Includes coronary artery disease, chronic kidney disease with baseline creatinine of 2, Clostridium difficile, history of diverticulitis , hypertension, hyperlipidemia, atrial fibrillation, dementia, prostatic hypertrophy. Social history: Here with his daughter. Retired pharmacist. General Appearance: Alert and conversant, cooperative. Eyes: No scleral icterus. ENT, Mouth: Normal mucous membranes. Respiratory: Normal respiratory effort, breath sounds equal, lungs are clear to auscultation. Cardiovascular: Regular rate and rhythm. Gastrointestinal: Abdomen is soft and non tender. Neurological: Alert, follows commands. Does make jokes with me. Face symmetric, normal movement and sensation in all extremities. Skin: Warm and dry, no rashes. Musculoskeletal: No peripheral edema and no joint swelling. Psychiatric: Not agitated. Emergency Department course/MDM: I think most likely cause is vasovagal syncope which would be related to having a bowel movement. 1235: Creatinine 2.5 was slightly elevated from baseline, hematocrit 30 which is similar to baseline values. Plan for IV hydration 1.5 L in the emergency department, encouraged outpatient oral fluids, stable for discharge. I think that a malignant dysrhythmia or seizure or acute coronary syndrome or stroke is unlikely. Patient and daughter state they are comfortable going home. Smoking Status: Never smoked Constitutional: Initial Vital Signs Temperature (C) 36.6 C 12/17/16 12:00 Heart Rate 80 12/17/16 12:00 Respiratory Rate 14 12/17/16 12:00 Blood Pressure 112/78 12/17/16 12:00 O2 Sat (%) 94 12/17/16 12:00 O2 Delivery Mode Room Air Allergies/Adverse Reactions: ibuprofen [From Motrin] Allergy (Verified 12/17/16 11:14) Home Medications: Medication Instructions Recorded Acetaminophen 12/17/16 Allopurinol 12/17/16 CALCITRIOL 12/17/16 Calcium Carbonate 12/17/16 Clindamycin 1% 12/17/16 Dymista Nasal [place] 12/17/16 Ferrous Sulfate 12/17/16 Herbals/Supplements -Info Only 12/17/16 Lasix 12/17/16 Lipitor 20 mg (*) 12/17/16 Losartan Potassium 12/17/16 Multivitamin 12/17/16 Norvasc 12/17/16 Plavix 12/17/16 Polyethylene Glycol 3350 12/17/16 Potassium Chloride 12/17/16 Probiotic 12/17/16 Propranolol HCl 12/17/16 Psyllium 12/17/16 Ranitidine HCl 12/17/16 Tamsulosin HCl 12/17/16 Tetrahydrozoline HCl 12/17/16 Medical Decision Making - Diagnostics EKG Interpretation: 12-lead EKG interpreted by me; official reading is in trace master. My interpretation is sinus rhythm with first-degree AV block, inferior Q-waves, late anterior RS. Not significantly changed from 10/05/2016, except for prolonged NE interval today of 350. However first-degree AV block with prolonged NE interval seen on EKGs from 2016 and 07/15/2016 Differential Diagnosis: Differential diagnosis considered for near syncope including but not limited to vasovagal syncope, arrhythmia, dehydration, and blood loss. - Data Points Laboratory Results: Laboratory Results 12/17/16 11:14 12/17/16 11:14 12/17/16 12/17/16 11:14 11:14 WBC 6.85 10^3/uL 10^3/uL (3.80-9.50) RBC 3.27 10^6/uL L 10^6/uL (4.40-6.38) Hgb 10.8 g/dL L g/dL (13.7-17.5) Hct 30.8 % L % (40.0-51.0) MCV 94.2 fL fL (81.5-99.8) MCH 33.0 pg pg (27.9-34.1) MCHC 35.1 g/dL g/dL (32.4-36.7) RDW 15.2 % % (11.5-15.2) Plt Count 212 10^3/uL 10^3/uL (150-400) MPV 9.3 fL fL (8.7-11.7) Neut % (Auto) 63.1 % % (39.3-74.2) Lymph % (Auto) 24.5 % % (15.0-45.0) [place] % (Auto) 8.8 % % (4.5-13.0) Eos % (Auto) 1.8 % % (0.6-7.6) Baso % (Auto) 0.6 % % (0.3-1.7) Nucleat RBC Rel Count 0.0 % % (0.0-0.2) Absolute Neuts (auto) 4.33 10^3/uL 10^3/uL (1.70-6.50) Absolute Lymphs (auto) 1.68 10^3/uL 10^3/uL (1.00-3.00) Absolute Monos (auto) 0.60 10^3/uL 10^3/uL (0.30-0.80) Absolute Eos (auto) 0.12 10^3/uL 10^3/uL (0.03-0.40) Absolute Basos (auto) 0.04 10^3/uL 10^3/uL (0.02-0.10) Absolute Nucleated RBC 0.00 10^3/uL 10^3/uL (0-0.01) Immature Gran % 1.2 % H % (0.0-1.1) Immature Gran # 0.08 10^3/uL 10^3/uL (0.00-0.10) Sodium 138 mEq/L mEq/L (134-144) Potassium 4.7 mEq/L mEq/L (3.5-5.2) Chloride 105 mEq/L mEq/L (97-110) Carbon Dioxide 23 mEq/l mEq/l (22-31) Anion Gap 10 mEq/L mEq/L (8-16) BUN 48 mg/dL H mg/dL (7-23) Creatinine 2.5 mg/dL H mg/dL (0.7-1.3) Estimated GFR 25 Glucose 93 mg/dL mg/dL (70-100) Calcium 10.3 mg/dL mg/dL (8.5-10.4) Troponin I < 0.012 ng/mL ng/mL (0-0.034) Microbiology Results: MICROBIOLOGY 12/17/16 12:15 Stool Gastrointestinal Tract Panel (PCR) - Final Clostridium Difficile Detected Medications Given: Discontinued Medications Sodium Chloride (Ns) 500 mls @ 0 mls/hr IV ONCE ONE PRN Reason: As Directed Stop: 12/17/16 11:24 Last Admin: 12/17/16 11:29 Dose: 500 mls Sodium Chloride (Ns) 1,000 mls @ 0 mls/hr IV ONCE ONE PRN Reason: Wide Open Stop: 12/17/16 12:17 Last Admin: 12/17/16 12:40 Dose: 1,000 mls Departure - Departure Disposition: Home, Routine, Self-Care Clinical Impression: Near syncope Condition: Good Instructions: Near Syncope (ED) Additional Instructions: Increase oral fluid intake. Your creatinine or kidney function test was slightly elevated at 2.5 and that should be retested early next week. Referrals: Jovani Kenyon MD [Medical Doctor] - As per Instructions
[2016-12-17 12:05] LABS: ANION GAP 10 mEq/L (8-16); CALCIUM 10.3 mg/dL (8.5-10.4); CARBON DIOXIDE 23 mEq/l (22-31); CHLORIDE 105 mEq/L (97-110); CREATININE 2.5 mg/dL (0.7-1.3); GLOMERULAR FILTRATION RATE 25; GLUCOSE 93 mg/dL (70-100); POTASSIUM 4.7 mEq/L (3.5-5.2); SODIUM 138 mEq/L (134-144)
[2016-12-17 12:15] LABS: TROPONIN I < 0.012 ng/mL (0-0.034)
[2016-12-17] MEDS ORDERED: NS 1,000 ML IV ONE (12:16)
[2016-12-17 13:05] VITALS: RESP 14; O2SAT 94
[2016-12-17 13:30] VITALS: BP 128/78; PULSE 70; TEMP 98.4
== END 2016-12-17 13:28 | disposition home or self-care (01) ==
LOC: EDUNIT#
DX: R55 Syncope and collapse (principal); I12.9 Hypertensive chronic kidney disease with stage 1 through stage 4 chronic kidney disease, or unspecified chronic kidney disease; N18.9 Chronic kidney disease, unspecified; I25.10 Atherosclerotic heart disease of native coronary artery without angina pectoris

== ENCOUNTER 2017-01-03 13:26 | Emergency (ER) | payer OTHER, BC ==
--- NOTE | 2017-01-03 13:25 | EDPHY ---
H & P Time Seen by Provider: 01/03/17 13:30 HPI/ROS: CHIEF COMPLAINT: Syncope HISTORY OF PRESENT ILLNESS: Patient recently was diagnosed with Clostridium difficile and just finished antibiotics. Today he was sitting out in the sun with his daughter and was noted to have between a 1-1.5 minute episode of syncope while seated at 1:00 p.m. No seizure activity noted. No trauma sustained. 1 asked the patient how he feels right now he just says "pissed off" in that he feels that he is fine and does not want to be here. His daughter confirms that he is back to baseline. No chest pain or trouble breathing or headache. He was in our ED on 12/17 for syncope in context of using the bathroom, and subsequently had holter monitoring for 2 weeks which was negative by daughter's report. REVIEW OF SYSTEMS: Eye: no change in vision ENT: no sore throat Cardiac: No chest pain currently. Pulmonary: no cough or SOB Abdomen: No abdominal pain or vomiting, recent C diff.; diarrhea improved Musculoskeletal: no back pain Skin: no rash Neuro: no headache Constitutional: no fever : no urinary symptoms A comprehensive 10 point review of systems is otherwise negative aside from elements mentioned in the history of present illness. Limited by patient's dementia. PAST MEDICAL HISTORY: Previous ED visit dated 12/17/2016 personally reviewed. Includes coronary disease, chronic kidney disease, Clostridium difficile, atrial fibrillation. Diverticulitis, dementia, prostatic hypertrophy. Hypertension. Social history: Here with his daughter General Appearance: Alert and conversant, cooperative. Eyes: No scleral icterus. ENT, Mouth: Normal mucous membranes. No tongue laceration or abrasion. Respiratory: Normal respiratory effort, breath sounds equal, lungs are clear to auscultation. Cardiovascular: Regular rate and rhythm. Gastrointestinal: Abdomen is soft and non tender. Neurological: Alert, follows commands. Normally conversant. Face symmetric, normal movement and sensation in all extremities. Skin: Warm and dry, no rashes. Musculoskeletal: No peripheral edema and no joint swelling. Psychiatric: Not agitated. Emergency Department course/MDM: Plan for EKG, labs to include electrolytes and troponin. Does not actively have diarrhea. 1500: Results discussed, plan for 1.5 L IV and then repeat creatinine. 1700: Results discussed; admission discussed and recommended, with patient and daughter, but they both decline. He had a cardiac Holter monitor as an outpatient 2 weeks ago with no dysrhythmias seen. He is DNR and would not want to have pacemaker or defibrillation or CPR in any case. He feels back to normal now and does not want to be admitted. They are aware that malignant cardiac dysrhythmia can't be excluded as cause here in the ED. They would like to be discharged and call his under cutter tomorrow; given his wishes regarding workup and treatments, I think this is reasonable. Constitutional: Initial Vital Signs Temperature (C) 36.5 C 01/03/17 13:34 Heart Rate 64 01/03/17 13:34 Respiratory Rate 18 01/03/17 13:34 Blood Pressure 157/88 H 01/03/17 13:34 O2 Sat (%) 98 01/03/17 13:34 O2 Delivery Mode Room Air Allergies/Adverse Reactions: ibuprofen [From Motrin] Allergy (Verified 12/17/16 11:14) Home Medications: Medication Instructions Recorded Acetaminophen 12/17/16 Allopurinol 12/17/16 CALCITRIOL 12/17/16 Calcium Carbonate 12/17/16 Clindamycin 1% 12/17/16 Dymista Nasal [place] 12/17/16 Ferrous Sulfate 12/17/16 Herbals/Supplements -Info Only 12/17/16 Lasix 12/17/16 Lipitor 20 mg (*) 12/17/16 Losartan Potassium 12/17/16 Multivitamin 12/17/16 Norvasc 12/17/16 Plavix 12/17/16 Polyethylene Glycol 3350 12/17/16 Potassium Chloride 12/17/16 Probiotic 12/17/16 Propranolol HCl 12/17/16 Psyllium 12/17/16 Ranitidine HCl 12/17/16 Tamsulosin HCl 12/17/16 Tetrahydrozoline HCl 12/17/16 Medical Decision Making - Diagnostics EKG Interpretation: 12-lead EKG interpreted by me; official reading is in trace master. My interpretation is sinus rhythm with first-degree AV block and QT 516, inferior Q -waves noted. Differential Diagnosis: Differential diagnosis considered for syncope including but not limited to vasovagal syncope, arrhythmia, dehydration, and blood loss. - Data Points Laboratory Results: Laboratory Results 01/03/17 13:40 01/03/17 13:40 Medications Given: Discontinued Medications Amlodipine Besylate (Norvasc) 2.5 mg PO EDNOW ONE Stop: 01/03/17 15:29 Last Admin: 01/03/17 15:31 Dose: 2.5 mg Sodium Chloride (Ns) 500 mls @ 0 mls/hr IV ONCE ONE PRN Reason: As Directed Stop: 01/03/17 13:35 Last Admin: 01/03/17 13:55 Dose: 500 mls Sodium Chloride (Ns) 1,000 mls @ 0 mls/hr IV ONCE ONE PRN Reason: Wide Open Stop: 01/03/17 14:59 Last Admin: 01/03/17 15:20 Dose: 1,000 mls Departure - Departure Disposition: Home, Routine, Self-Care Clinical Impression: Syncope Condition: Good Instructions: Syncope (ED) Referrals: Jovani Kenyon MD [Primary Care Provider] - As per Instructions Franny Cazares MD [Medical Doctor] - As per Instructions (call your doctor tomorrow)
[2017-01-03] MEDS ORDERED: NS 500 ML IV ONE (13:34)
--- NOTE | 2017-01-03 13:42 | CPEKG ---
Heart Rate: 60 RR Interval: 1000 P-R Interval: 364 QRSD Interval: 94 QT Interval: 516 QTC Interval: 516 P [place]: 12 QRS [place]: -36 T Wave [place]: 8 EKG Severity - ABNORMAL ECG - EKG Impression: SINUS RHYTHM EKG Impression: FIRST DEGREE AV BLOCK EKG Impression: PROBABLE INFERIOR INFARCT, AGE INDETERMINATE EKG Impression: PROLONGED QT INTERVAL Electronically Signed By: Geovani Duron 03-Jan-2017 13:41:49
[2017-01-03 13:44] LABS: % IMMATURE GRANULYOCYTES 1.4 % (0.0-1.1); ADD DIFF? NO; ADD MORPH? NO; ADD SCAN? NO; ATYPICAL LYMPHOCYTE FLAG 10 (0-99); FRAGMENT RBC FLAG 0 (0-99); HEMATOCRIT 30.8 % (40.0-51.0); HEMOGLOBIN 10.6 g/dL (13.7-17.5); LEFT SHIFT FLG 10 (0-99); LIPEMIA HEMOLYSIS FLAG 90 (0-99); MEAN CELL HEMOGLOBIN 32.8 pg (27.9-34.1); MEAN CELL HEMOGLOBIN CONCENTR. 34.4 g/dL (32.4-36.7); MEAN CELL VOLUME 95.4 fL (81.5-99.8); MEAN PLATELET VOLUME 9.5 fL (8.7-11.7); PLATELET CLUMPS FLAG 0 (0-99); PLATELET COUNT 207 10^3/uL (150-400); RED BLOOD CELL COUNT 3.23 10^6/uL (4.40-6.38); RED CELL DISTRIBUTION WIDTH 15.2 % (11.5-15.2)
[2017-01-03 14:09] LABS: ANION GAP 12 mEq/L (8-16); CALCIUM 10.2 mg/dL (8.5-10.4); CARBON DIOXIDE 22 mEq/l (22-31); CHLORIDE 106 mEq/L (97-110); CREATININE 2.6 mg/dL (0.7-1.3); GLOMERULAR FILTRATION RATE 23; GLUCOSE 86 mg/dL (70-100); POTASSIUM 4.7 mEq/L (3.5-5.2); SODIUM 140 mEq/L (134-144)
[2017-01-03 14:21] LABS: TROPONIN I < 0.012 ng/mL (0-0.034)
[2017-01-03] MEDS ORDERED: NS 1,000 ML IV ONE (14:58)
[2017-01-03] MEDS ORDERED: amLODIPine BESYLATE 5 MG TAB ONE (15:27)
[2017-01-03 17:32] VITALS: BP 151/89; PULSE 79; RESP 15; TEMP 97.9; O2SAT 98
== END 2017-01-03 17:35 | disposition home or self-care (01) ==
LOC: EDUNIT#
DX: R55 Syncope and collapse (principal); I12.9 Hypertensive chronic kidney disease with stage 1 through stage 4 chronic kidney disease, or unspecified chronic kidney disease; N18.9 Chronic kidney disease, unspecified; I25.10 Atherosclerotic heart disease of native coronary artery without angina pectoris
CPT/HCPCS: 82947-QW

== ENCOUNTER 2017-06-30 11:28 | Emergency (ER) | payer OTHER, BC ==
[2017-06-30 11:50] VITALS: TEMP 98.1
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
--- NOTE | 2017-06-30 11:59 | CPEKG ---
Heart Rate: 77 RR Interval: 779 P-R Interval: 260 QRSD Interval: 80 QT Interval: 400 QTC Interval: 453 P [place]: 0 QRS [place]: -35 T Wave [place]: 13 EKG Severity - ABNORMAL ECG - EKG Impression: SINUS RHYTHM EKG Impression: FIRST DEGREE AV BLOCK EKG Impression: PROBABLE INFERIOR INFARCT, AGE INDETERMINATE Electronically Signed By: Bubba Bhatti 30-Jun-2017 14:48:39
[2017-06-30 13:23] VITALS: BP 156/81; PULSE 86; RESP 16; O2SAT 96
== END 2017-06-30 13:23 | disposition home or self-care (01) ==
LOC: CED 11:28
DX: S29.9XXA Unspecified injury of thorax, initial encounter (principal); I25.10 Atherosclerotic heart disease of native coronary artery without angina pectoris; I12.9 Hypertensive chronic kidney disease with stage 1 through stage 4 chronic kidney disease, or unspecified chronic kidney disease; N18.3 Chronic kidney disease, stage 3 (moderate); J44.9 Chronic obstructive pulmonary disease, unspecified; Z86.73 Personal history of transient ischemic attack (TIA), and cerebral infarction without residual deficits; Z95.5 Presence of coronary angioplasty implant and graft; V49.50XA Passenger injured in collision with unspecified motor vehicles in traffic accident, initial encounter; Y92.410 Unspecified street and highway as the place of occurrence of the external cause
CPT/HCPCS: 71020-PO

== ENCOUNTER 2017-08-04 21:41 | Observation (INO) | payer OTHER, BC ==
--- NOTE | 2017-08-04 21:53 | CPEKG ---
Heart Rate: 107 RR Interval: 561 P-R Interval: 372 QRSD Interval: 128 QT Interval: 372 QTC Interval: 497 P [place]: 0 QRS [place]: 21 T Wave [place]: 16 EKG Severity - ABNORMAL ECG - EKG Impression: SINUS TACHYCARDIA EKG Impression: FIRST DEGREE AV BLOCK EKG Impression: JUDITH, CONSIDER BIATRIAL ABNORMALITIES EKG Impression: RIGHT BUNDLE BRANCH BLOCK Electronically Signed By: Arnol Rocha 04-Aug-2017 22:59:18
[2017-08-04 21:57] LABS: % IMMATURE GRANULYOCYTES 1.2 % (0.0-1.1); ADD DIFF? NO; ADD MORPH? NO; ADD SCAN? NO; ATYPICAL LYMPHOCYTE FLAG 0 (0-99); FRAGMENT RBC FLAG 0 (0-99); HEMATOCRIT 31.7 % (40.0-51.0); HEMOGLOBIN 11.3 g/dL (13.7-17.5); LEFT SHIFT FLG 10 (0-99); LIPEMIA HEMOLYSIS FLAG 90 (0-99); MEAN CELL HEMOGLOBIN CONCENTR. 35.6 g/dL (32.4-36.7); MEAN CELL VOLUME 95.5 fL (81.5-99.8); MEAN PLATELET VOLUME 9.2 fL (8.7-11.7); PLATELET CLUMPS FLAG 0 (0-99); PLATELET COUNT 193 10^3/uL (150-400); RED BLOOD CELL COUNT 3.32 10^6/uL (4.40-6.38); RED CELL DISTRIBUTION WIDTH 14.9 % (11.5-15.2)
[2017-08-04 22:07] LABS: INR 1.07 (0.83-1.16); PROTIME(PATIENT) 14.1 SEC (12.0-15.0)
[2017-08-04 22:08] LABS: APTT 26.8 SEC (23.0-38.0)
--- NOTE | 2017-08-04 22:12 | EDPHY ---
H & P Time Seen by Provider: 08/04/17 21:48 HPI/ROS: HPI Chest tightness, shortness of breath. 86-year-old male by ambulance from assisted living. This patient was walking [place] movie [place] to his room when he suddenly felt weak, kneeled on the ground from his walker and complained of feeling short of breath and his chest feeling tight. By the time EMS arrived which was within 5 min he was asymptomatic. On arrival to our emergency department he denies any complaints at this time. No chest pain currently. No shortness of breath. ROS: Constitutional: No fever, no chills. No weakness. Eyes: No discharge. No changes in vision. ENT: No sore throat. No nasal congestion or rhinorrhea. Respiratory: No cough. As above. Cardiac: As above, no palpitations. Gastrointestinal: No abdominal pain, no vomiting, no diarrhea. Genitourinary: No hematuria. No dysuria or increased frequency with urination. Musculoskeletal: No back pain. No neck pain. No myalgias or arthralgias. Skin: No rashes. Neurological: No headache. No focal weakness or altered sensation. Past medical history: Colitis, dementia, chronic sinusitis, hypertension, coronary artery disease with cardiac stents x2, essential tremor, CVA, arthritis , gout, COPD, BPH, history of C diff. Social history: As a daughter who lives nearby and is on her way. She is power -of-trial attorney. Nonsmoker. No alcohol. Physical Exam: General Appearance: Alert, no distress. This patient is responding to questions appropriately and in full sentences. This patient appears well- hydrated and well-nourished. Eyes: Pupils equal and round no pallor or injection. No lid edema, erythema or injection. Respiratory: There are no retractions, lungs are clear to auscultation anteriorly with good air movement bilaterally. Cardiovascular: Regular rate and rhythm. No murmur appreciated. Gastrointestinal: Abdomen is soft and nontender, no masses, bowel sounds normal. No focal tenderness at McBurney's point. No Badillo sign. Neurological: Motor sensory function is grossly intact. Cranial nerves are normal. Gait is normal. Skin: Warm and dry, no rashes. Musculoskeletal: Neck is supple and nontender. Extremities are symmetrical. All joints range without pain or impingement. Psychiatric: No agitation. No depression. Database: EKG: EKG time is 9:51 p.m.; EKG shows a wide complex sinus tachycardia with a ventricular rate of 107. Right bundle-branch noted. 1st degree AV block noted. QT intervals are within normal limits. There are no ST-T wave changes indicative of ischemic or injury pattern. Right bundle branch block not noted on previous EKG. This EKG has a S1 Q 3, inverted T3 pattern. Interpreted by me. Imaging: Chest x-ray AP portable; the cardiac mediastinal silhouette is unremarkable. No evidence of infiltrate or pneumothorax. No acute cardiopulmonary disease process noted. Interpreted by me. Procedures: Emergency department course: IV placed. Vital signs reviewed. He is mildly tachycardic. Vital signs otherwise normal. EKG obtained and reviewed by myself. Patient started on IV normal saline with 500 cc to be given over the next hr.. 10:45 p.m., patient re-evaluated. Resting comfortably at this time. At rest he denies any chest pain or tightness. No shortness of breath. I discussed the results of his diagnostic workup. His D-dimer is slightly elevated. As noted above his EKG is concerning for signs of right heart strain and possible PE. However, his creatinine is elevated at 3.3. CT imaging for PE will not be obtained at this time. I spoke with his daughter. Results of his diagnostic testing and plan for admission was discussed with his daughter. She is power-of -trial attorney. She endorses. We will continue to hydrate the patient. 10:50 p.m., spoke with the on-call hospitalist, Dr. Molina. He accepts this patient for admission. Patient's remaining emergency department course under my care has been uneventful. Patient admitted in stable condition. Differential Diagnosis: The differential diagnosis on this patient includes but is not limited to transient dyspnea, reactive airway disease, acute coronary syndrome, pulmonary embolism, pneumonia, CHF. This represents a partial list of diagnoses considered. These considerations are based on history, physical exam, past history, reassessment and diagnostic testing. Smoking Status: Never smoked Constitutional: Initial Vital Signs Temperature (C) 36.7 C 08/04/17 21:50 Heart Rate 108 H 08/04/17 21:50 Respiratory Rate 18 08/04/17 21:50 Blood Pressure 128/75 H 08/04/17 21:50 O2 Sat (%) 97 08/04/17 21:50 O2 Delivery Mode Room Air Allergies/Adverse Reactions: ibuprofen [From Motrin] Allergy (Verified 08/04/17 21:48) Home Medications: Medication Instructions Recorded Acetaminophen 08/04/17 Allopurinol 08/04/17 Amlodipine Besylate 08/04/17 Biotin 08/04/17 Cristopher-Gest 08/04/17 Calcitriol 08/04/17 Clopidogrel Bisulfate 08/04/17 Dymista Nasal [place] 08/04/17 Ferrous Sulfate 08/04/17 Hydroxyzine HCl 08/04/17 Losartan Potassium 08/04/17 Metamucil 08/04/17 Omeprazole 08/04/17 Polyethylene Glycol 300 08/04/17 Ranitidine HCl 08/04/17 Tamsulosin HCl 08/04/17 Tetrahydrozoline 0.05% 08/04/17 Vsl#3 Packet 08/04/17 Medical Decision Making - Data Points Laboratory Results: Laboratory Results 08/04/17 21:40 08/04/17 21:40 08/04/17 08/04/17 08/04/17 21:40 21:40 21:40 WBC 8.53 10^3/uL 10^3/uL (3.80-9.50) RBC 3.32 10^6/uL L 10^6/uL (4.40-6.38) Hgb 11.3 g/dL L g/dL (13.7-17.5) Hct 31.7 % L % (40.0-51.0) MCV 95.5 fL fL (81.5-99.8) MCH 34.0 pg pg (27.9-34.1) MCHC 35.6 g/dL g/dL (32.4-36.7) RDW 14.9 % % (11.5-15.2) Plt Count 193 10^3/uL 10^3/uL (150-400) MPV 9.2 fL fL (8.7-11.7) Neut % (Auto) 73.5 % % (39.3-74.2) Lymph % (Auto) 15.9 % % (15.0-45.0) [place] % (Auto) 8.1 % % (4.5-13.0) Eos % (Auto) 0.9 % % (0.6-7.6) Baso % (Auto) 0.4 % % (0.3-1.7) Nucleat RBC Rel Count 0.0 % % (0.0-0.2) Absolute Neuts (auto) 6.27 10^3/uL 10^3/uL (1.70-6.50) Absolute Lymphs (auto) 1.36 10^3/uL 10^3/uL (1.00-3.00) Absolute Monos (auto) 0.69 10^3/uL 10^3/uL (0.30-0.80) Absolute Eos (auto) 0.08 10^3/uL 10^3/uL (0.03-0.40) Absolute Basos (auto) 0.03 10^3/uL 10^3/uL (0.02-0.10) Absolute Nucleated RBC 0.00 10^3/uL 10^3/uL (0-0.01) Immature Gran % 1.2 % H % (0.0-1.1) Immature Gran # 0.10 10^3/uL 10^3/uL (0.00-0.10) PT 14.1 SEC SEC (12.0-15.0) INR 1.07 (0.83-1.16) APTT 26.8 SEC SEC (23.0-38.0) D-Dimer 0.59 ug/mLFEU H ug/mLFEU (0.00-0.50) Sodium 136 mEq/L mEq/L (134-144) Potassium 4.8 mEq/L mEq/L (3.5-5.2) Chloride 104 mEq/L mEq/L (97-110) Carbon Dioxide 19 mEq/l L mEq/l (22-31) Anion Gap 13 mEq/L mEq/L (8-16) BUN 52 mg/dL H mg/dL (7-23) Creatinine 3.3 mg/dL H mg/dL (0.7-1.3) Estimated GFR 18 Glucose 129 mg/dL H mg/dL (70-100) Calcium 10.2 mg/dL mg/dL (8.5-10.4) Creatine Kinase 48 IU/L IU/L (0-224) CK-MB (CK-2) Fraction 0.28 ng/mL ng/mL (0.00-3.19) Troponin I 0.022 ng/mL ng/mL (0.000-0.034) NT-Pro-B Natriuret Pep 558 pg/mL H pg/mL (0-450) Medications Given: Sodium Chloride (Ns) 500 mls @ 1,000 mls/hr IV EDNOW ONE PRN Reason: Protocol Stop: 08/04/17 23:10 Last Admin: 08/04/17 22:44 Dose: 500 mls Discontinued Medications Morphine Sulfate (Morphine) 2 mg IVP EDNOW ONE Stop: 08/04/17 21:49 Last Admin: 08/04/17 22:12 Dose: Not Given Departure - Departure Disposition: [facility] [place] Inpatient Acute Clinical Impression: Transient dyspnea, Transient chest tightness, Tachycardia, Renal insufficiency Referrals: Patient,NotPresent [Primary Care Provider] - As per Instructions
[2017-08-04 22:23] LABS: ANION GAP 13 mEq/L (8-16); CALCIUM 10.2 mg/dL (8.5-10.4); CARBON DIOXIDE 19 mEq/l (22-31); CHLORIDE 104 mEq/L (97-110); CREATININE 3.3 mg/dL (0.7-1.3); GLOMERULAR FILTRATION RATE 18; GLUCOSE 129 mg/dL (70-100); POTASSIUM 4.8 mEq/L (3.5-5.2); SODIUM 136 mEq/L (134-144)
[2017-08-04 22:35] LABS: CREATINE KINASE-MB FRACTION 0.28 ng/mL (0.00-3.19); TROPONIN I 0.022 ng/mL (0.000-0.034)
[2017-08-04] MEDS ORDERED: NS 500 ML IV ONE (22:41)
[2017-08-04] MEDS ORDERED: ONDANSETRON 4 MG/2 ML VIAL IVP PRN (22:53)
[2017-08-04] MEDS ORDERED: ACETAMINOPHEN 325 MG TAB PO PRN (22:53)
[2017-08-04] MEDS ORDERED: ONDANSETRON DISINTEGRATING 4 MG TAB PO PRN (22:53)
--- NOTE | 2017-08-04 23:46 | PDGENHP ---
History and Physical - Chief Complaint Delirium - History of Present Illness 86 yo M w/ hx of CKD, HTN, CAD, and dementia presents after acute episode of delirium, chest heaviness, and generalized weakness. Patient had a large meal with his family today. After the meal (per his daughter) they checked his vital signs as usual at his [facility] and found his BP to be unusually low (SBP 90's) and HR elevated (110's). Despite this he felt well so they went to see a movie. After the movie the patient suffered and episode where he felt weak and was unable to stand under his own power. During this episode he mentioned chest heaviness and shortness of breath. Overall this was relatively brief and he felt better after arriving in the ED. He now is symptom free but has a hard timer ecalling these events on his own. Once in the ED his HR remained elevated and his serum Cr was elevated, suggestive of dehydration. His HR has been coming down nicely with IVF. Of note, daughter reports a few episodes of urinary incontinence over the last several days, which is unusual for the patient. He denies ishaan infectious symptoms including fever, chills, dysuria, diarrhea, cough, abdominal pain, etc. Per his daughter he has now returned to his baseline mental status (A&Ox2). History Information - Allergies/Home Medication List Allergies/Adverse Reactions: ibuprofen [From Motrin] Allergy (Verified 08/04/17 21:48) Home Medications: Acetaminophen 08/04/17 [Last Taken Unknown] Allopurinol 08/04/17 [Last Taken Unknown] Amlodipine Besylate 08/04/17 [Last Taken Unknown] Biotin 08/04/17 [Last Taken Unknown] Cristopher-Gest 08/04/17 [Last Taken Unknown] Calcitriol 08/04/17 [Last Taken Unknown] Clopidogrel Bisulfate 08/04/17 [Last Taken Unknown] Dymista Nasal [place] 08/04/17 [Last Taken Unknown] Ferrous Sulfate 08/04/17 [Last Taken Unknown] Hydroxyzine HCl 08/04/17 [Last Taken Unknown] Losartan Potassium 08/04/17 [Last Taken Unknown] Metamucil 08/04/17 [Last Taken Unknown] Omeprazole 08/04/17 [Last Taken Unknown] Polyethylene Glycol 300 08/04/17 [Last Taken Unknown] Ranitidine HCl 08/04/17 [Last Taken Unknown] Tamsulosin HCl 08/04/17 [Last Taken Unknown] Tetrahydrozoline 0.05% 08/04/17 [Last Taken Unknown] Vsl#3 Packet 08/04/17 [Last Taken Unknown] I have personally reviewed and updated: family history, medical history - Past Medical History Additional medical history: CAD s/p PCI x 2. chronic renal failure, stage 3-4. mild cognitive impairment. HTN. anemia of chronic disease. BPH. HLD. essential tremor. h/o TIAs - Surgical History Additional surgical history: frontal sinus surgery. 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 Review of Systems Review of Systems: ROS: 10pt was reviewed & negative except for what was stated in HPI & below Physical Exam Physical Exam: Temp Pulse Resp BP Pulse Ox 36.7 C 105 H 16 108/81 H 95 08/04/17 21:50 08/04/17 22:46 08/04/17 22:46 08/04/17 22:46 08/04/17 22:46 Constitutional: no apparent distress, not in pain Eyes: PERRL, EOMI Ears, Nose, Mouth, Throat: moist mucous membranes, no oral mucosal ulcers Cardiovascular: regular rate and rhythym, systolic murmur Respiratory: no respiratory distress, no rales or rhonchi Gastrointestinal: normoactive bowel sounds, other (Suprapubic tenderness) Skin: warm, normal color Musculoskeletal: full muscle strength, no muscle tenderness Neurologic: CN II-XII Intact, other (A&Ox2) Psychiatric: interacting appropriately, not anxious Lab Data & Imaging Review 08/04/17 21:40 08/04/17 21:40 WBC 8.53 10^3/uL (3.80-9.50) 08/04/17 21:40 RBC 3.32 10^6/uL (4.40-6.38) L 08/04/17 21:40 Hgb 11.3 g/dL (13.7-17.5) L 08/04/17 21:40 Hct 31.7 % (40.0-51.0) L 08/04/17 21:40 MCV 95.5 fL (81.5-99.8) 08/04/17 21:40 MCH 34.0 pg (27.9-34.1) 08/04/17 21:40 MCHC 35.6 g/dL (32.4-36.7) 08/04/17 21:40 RDW 14.9 % (11.5-15.2) 08/04/17 21:40 Plt Count 193 10^3/uL (150-400) 08/04/17 21:40 MPV 9.2 fL (8.7-11.7) 08/04/17 21:40 Neut % (Auto) 73.5 % (39.3-74.2) 08/04/17 21:40 Lymph % (Auto) 15.9 % (15.0-45.0) 08/04/17 21:40 [place] % (Auto) 8.1 % (4.5-13.0) 08/04/17 21:40 Eos % (Auto) 0.9 % (0.6-7.6) 08/04/17 21:40 Baso % (Auto) 0.4 % (0.3-1.7) 08/04/17 21:40 Nucleat RBC Rel Count 0.0 % (0.0-0.2) 08/04/17 21:40 Absolute Neuts (auto) 6.27 10^3/uL (1.70-6.50) 08/04/17 21:40 Absolute Lymphs (auto) 1.36 10^3/uL (1.00-3.00) 08/04/17 21:40 Absolute Monos (auto) 0.69 10^3/uL (0.30-0.80) 08/04/17 21:40 Absolute Eos (auto) 0.08 10^3/uL (0.03-0.40) 08/04/17 21:40 Absolute Basos (auto) 0.03 10^3/uL (0.02-0.10) 08/04/17 21:40 Absolute Nucleated RBC 0.00 10^3/uL (0-0.01) 08/04/17 21:40 Immature Gran % 1.2 % (0.0-1.1) H 08/04/17 21:40 Immature Gran # 0.10 10^3/uL (0.00-0.10) 08/04/17 21:40 PT 14.1 SEC (12.0-15.0) 08/04/17 21:40 INR 1.07 (0.83-1.16) 08/04/17 21:40 APTT 26.8 SEC (23.0-38.0) 08/04/17 21:40 D-Dimer 0.59 ug/mLFEU (0.00-0.50) H 08/04/17 21:40 Sodium 136 mEq/L (134-144) 08/04/17 21:40 Potassium 4.8 mEq/L (3.5-5.2) 08/04/17 21:40 Chloride 104 mEq/L (97-110) 08/04/17 21:40 Carbon Dioxide 19 mEq/l (22-31) L 08/04/17 21:40 Anion Gap 13 mEq/L (8-16) 08/04/17 21:40 BUN 52 mg/dL (7-23) H 08/04/17 21:40 Creatinine 3.3 mg/dL (0.7-1.3) H 08/04/17 21:40 Estimated GFR 18 08/04/17 21:40 Glucose 129 mg/dL (70-100) H 08/04/17 21:40 Calcium 10.2 mg/dL (8.5-10.4) 08/04/17 21:40 Creatine Kinase 48 IU/L (0-224) 08/04/17 21:40 CK-MB (CK-2) Fraction 0.28 ng/mL (0.00-3.19) 08/04/17 21:40 Troponin I 0.022 ng/mL (0.000-0.034) 08/04/17 21:40 NT-Pro-B Natriuret Pep 558 pg/mL (0-450) H 08/04/17 21:40 Visualized and Interpreted Chest x-ray results: Yes Chest X-Ray results: no infiltrate Visualized and Interpreted EKG results: Yes EKG Interpretation: Positive for: normal sinsus rhythm, right bundle branch block Assessment & Plan Assessment: 86 yo M w/ hx of CAD, HTN, CKD, and dementia presents after episode of confusion and generalized weakness found to have MALATHI and signs of dehydration. Plan: 1. Acute delirium, generalized weakness; now resolved - Clinical picture seems most consistent with dehydration noting low BP and elevated HR at [facility] earlier in the day as well as MALATHI noted on arrival here. Heart rate coming down nicely with IVF now. it is also possible that a UTI could be contributing noting new urinary incontinence and suprapubic tenderness, but a urine sample has not yet been able to be collected. Noting that patient mentioned chest heaviness during the episode, cardiac etiologies are also on the differential, but overall this seems less likely. ECG does show ?new RBBB but this is of unclear significance; troponin negative. D-dimer negative by age adjusted cut off and oxygenating very well on room air so doubt PE. - Gentle IVF for dehydration noting low GFR - ACS rule-out: monitor on telemetry, trend cardiac enzymes - UA, urine culture ordered noting concern for UTI - PT/OT evaluation 2. MALATHI on CKD Stage III/IV - Suspect pre-renal azotemia based on above. Serum Cr 3.3 on admission and baseline appears to be ~2.5. - IVF and monitor BMP - Check FeNa - Would hold ARB for now noting low/normal BP and MALATHI 3. Hx CAD - On clopidogrel monotherapy now; has history of stent placement in the past. ACS rule-out as above. 4. HTN - On amlodipine and losartan as outpatient. Propranolol was recently discontinued due to low BP. Would hold for now and monitor BP. 5. Early dementia, mild cognitive impairment - Patient A&Ox2 currently, which daughter states is baseline. Diet - Renal Code - Full Ppx - [facility] Dispo - Admit to observation status
[2017-08-05 02:49] LABS: COLOR YELLOW; LEUKOCYTE ESTERASE,URINE NEGATIVE (NEGATIVE); NITRITE,URINE NEGATIVE (NEGATIVE)
[2017-08-05 02:51] LABS: MUCUS TRACE /lpf (NONE-1+)
[2017-08-05] MEDS: HEPARIN 5,000 UNIT/0.5 ML SYR SC SCH ×2 (05:24→14:05)
[2017-08-05 06:10] LABS: % IMMATURE GRANULYOCYTES 1.3 % (0.0-1.1); ABSOLUTE IMMATURE GRANULOCYTES 0.08 10^3/uL (0.00-0.10); ADD DIFF? NO; ADD MORPH? NO; ADD SCAN? NO; ATYPICAL LYMPHOCYTE FLAG 0 (0-99); FRAGMENT RBC FLAG 0 (0-99); HEMOGLOBIN 9.5 g/dL (13.7-17.5); LEFT SHIFT FLG 10 (0-99); LIPEMIA HEMOLYSIS FLAG 90 (0-99); MEAN CELL HEMOGLOBIN 32.9 pg (27.9-34.1); MEAN CELL HEMOGLOBIN CONCENTR. 33.9 g/dL (32.4-36.7); MEAN CELL VOLUME 96.9 fL (81.5-99.8); MEAN PLATELET VOLUME 9.9 fL (8.7-11.7); PLATELET CLUMPS FLAG 0 (0-99); PLATELET COUNT 173 10^3/uL (150-400); RED BLOOD CELL COUNT 2.89 10^6/uL (4.40-6.38); RED CELL DISTRIBUTION WIDTH 14.7 % (11.5-15.2)
[2017-08-05 06:27] LABS: ANION GAP 13 mEq/L (8-16); CALCIUM 9.5 mg/dL (8.5-10.4); CARBON DIOXIDE 20 mEq/l (22-31); CHLORIDE 106 mEq/L (97-110); GLOMERULAR FILTRATION RATE 20; GLUCOSE 83 mg/dL (70-100); POTASSIUM 4.3 mEq/L (3.5-5.2); SODIUM 139 mEq/L (134-144)
[2017-08-05 06:33] LABS: TROPONIN I 0.024 ng/mL (0.000-0.034)
[2017-08-05] MEDS ORDERED: LR 500 ML IV SCH (10:00)
[2017-08-05] MEDS ORDERED: LR 1,000 ML IV SCH (10:00)
[2017-08-05 10:55] VITALS: TEMP 97.5
[2017-08-05 10:57] VITALS: BP 118/68; PULSE 101; RESP 14; O2SAT 95
[2017-08-05] MEDS ORDERED: ACETAMINOPHEN 325 MG TAB PO PRN (11:36)
[2017-08-05] MEDS ORDERED: POLYETHYLENE GLYCOL 3350 17 GM PKT PO PRN (11:36)
[2017-08-05] MEDS ORDERED: hydrOXYzine HCL 25 MG TAB PO PRN (11:36)
[2017-08-05] MEDS ORDERED: TETRAHYDROZOLINE 0.05% 15 ML OPHT.BTL EACHEYE PRN (11:36)
[2017-08-05] MEDS ORDERED: CALCIUM CARBONATE 500 MG CHEWABLE TAB PO PRN (11:36)
--- NOTE | 2017-08-05 11:45 | PDDCSUM ---
Discharge Summary Discharge Summary: 86 yo M w/ hx of CAD, HTN, CKD, and dementia presents after episode of confusion and generalized weakness found to have MALATHI and signs of dehydration. He was kept overnight and provided IVF. On the day of discharge he was given additional IVF and he is now back to baseline. He and his daughter are asking for d/c. As he is back to baseline he will d/c with plan to f/u with PCP and cardiology Losartan has been held until f/u with PCP. OT has cleared him for d/c back to Assisted living DDX: #Dehydration #CP, non cardiac, Trops ok, no events on tele #MALATHI, prerenal, back to baseline #HTN, holding Losartan #Dementia Exam: NAD AAOX3 RRR CTA B S/NT/ND NO LE EDEMA MEDS: SEE MED REC F/U: PER ABOVE TOTAL TIME SPENT ON D/C IS 35 MINS.
--- NOTE | 2017-08-05 12:24 | PDIAF ---
- Diagnosis Diagnosis: dehydration Code Status: Do Not Resuscitate - Medication Management Discharge Medications: Medications to Continue on Transfer Acetaminophen [Tylenol 325mg (*)] 650 mg PO Q6HRS PRN 08/04/17 [Last Taken Unknown] Allopurinol [Allopurinol 100 MG (*)] 100 mg PO BID@0730,182908/04/17 [Last Taken Unknown] Azelastine/Fluticasone [Dymista Nasal [place]] 1 spray EACHNARE BID 08/04/17 [ Last Taken Unknown] Calcitriol [Calcitriol (*)] 0.25 mcg PO MWF 08/04/17 [Last Taken Unknown] Calcium Carbonate [Tums 500MG (*)] 500 mg PO DAILY PRN 08/04/17 [Last Taken Unknown] Clopidogrel Bisulfate [Plavix (*)] 75 mg PO DAILY 08/04/17 [Last Taken Unknown] Ferrous Sulfate [Ferrous Sulf 325 MG (*)] 325 mg PO DAILY 08/04/17 [Last Taken Unknown] Lactobacil 2-S.thermo-Bifido 1 [Vsl#3 Packet] 1 each PO DAILY 08/04/17 [Last Taken Unknown] Omeprazole [Prilosec 20 mg] 20 mg PO DAILY 08/04/17 [Last Taken Unknown] Polyethylene Glycol 3350 [Miralax 17 gm (*)] 17 gm PO DAILY PRN 08/04/17 [Last Taken Unknown] Psyllium Husk (with Sugar) [Metamucil Packet] 1 each PO DAILY 08/04/17 [Last Taken Unknown] Ranitidine HCl [Zantac] 300 mg PO DAILY@182908/04/17 [Last Taken Unknown] Tamsulosin HCl [Flomax 0.4 MG (*)] 0.4 mg PO DAILY@182908/04/17 [Last Taken Unknown] Tetrahydrozoline 0.05% [Visine (*)] 1 drop EACHEYE DAILY PRN 08/04/17 [Last Taken Unknown] amLODIPine BESYLATE [Norvasc 2.5 mg (*)] 2.5 mg PO DAILY@182908/04/17 [Last Taken Unknown] hydrOXYzine HCL [hydrOXYzine HCL (RX)] 12.5 mg PO Q6HRS PRN 08/04/17 [Last Taken Unknown] Herbals/Supplements -Info Only 1 ea PO DAILY 08/05/17 [Last Taken Unknown] Multivitamins [Multivitamin (*)] 1 each PO DAILY 08/05/17 [Last Taken Unknown] Discharge Medications: Refer to the Discharge Home Medication list for PRN reason. - Orders Services needed: Registered Nurse, Physical Therapy Isolation Type: None Diet Recommendation: no restrictions on diet Diet Texture: Regular Texture Diet - Follow Up Care Current Providers and Referrals: Patient,NotPresent [Unknown] - As per Instructions
--- NOTE | 2017-08-05 12:45 | ASMTCASEMG ---
Living Arrangements What is your living Answers: Alone arrangement? Who do you live with? Type Of Residence What kind of residence do Answers: Assisted Living you live in? Type of Residence Facility Name Notes: [facility] Discharge Plan Comments Coordination Status Comments Notes: Pt is a 86 y/o man admitted for transient chest pain, dyspnea, tachy, and renal insufficiency. Therapies have been ordered. OT is recommending home to assisted living facility at [facility]. CM met w/ pt and daughter for dispo planning. Daughter would like pt to have physical therapy. Pt has had [facility] in the past. Referral made to [facility]. [facility] is able to accept. D/C orders sent to [facility]. Daughter will transport pt home. Pt receives non skilled caregiving, 8hrs/daily. Pt will most likely return to [facility] when medically stable. CM to follow. Plan: [facility]; PT/RN Date Signed: 08/05/2017 12:45 PM Electronically Signed By:MAXWELL Carter
--- NOTE | 2017-08-05 15:52 | ASDISCHSUM ---
Discharge Information Plan Status:Home with Home Health Medically Cleared to Leave:08/04/2017 Discharge Date:08/05/2017 03:30 PM CM D/C Disposition: ADT D/C Disposition:Senior Living Facility Projected Discharge Date:08/05/2017 11:00 AM Transportation at D/C: Discharge Delay Reason: Follow-Up Date:08/05/2017 11:00 AM Discharge Slot: Final Diagnosis: Placement Information Referral Type:*Home Health Care Services Referral ID:[id number] Provider Name:[facility] Address 1:[id number] Phone Number: Address 2: Fax Number: City:[place] Selection Factors: State:[place] Patient Contact Information Contact Name:YAIR Relationship:Daughter Address:[address] City:[facility] Phone: State/Zip Code:[place] [address] Email: Financial Information Financial Class: Primary Plan Desc:MEDICARE OUTPATIENT Primary Plan Number:[id number] Secondary Plan Desc: OUT OF [facility] Secondary Plan Number:[id number] Assessment Information [facility] Initial CM Assessment Living Arrangements What is your living Answers: Alone arrangement? Who do you live with? Type Of Residence What kind of residence do Answers: Assisted Living you live in? Type of Residence Facility Name Notes: [facility] Discharge Plan Comments Coordination Status Comments Notes: Pt is a 86 y/o man admitted for transient chest pain, dyspnea, tachy, and renal insufficiency. Therapies have been ordered. OT is recommending home to assisted living facility at [facility]. CM met w/ pt and daughter for dispo planning. Daughter would like pt to have physical therapy. Pt has had [facility] in the past. Referral made to [facility]. [facility] is able to accept. D/C orders sent to [facility]. Daughter will transport pt home. Pt receives non skilled caregiving, 8hrs/daily. Pt will most likely return to [facility] when medically stable. CM to follow. Plan: [facility]; PT/RN Date Signed: 08/05/2017 12:45 PM Electronically Signed By:MAXWELL Carter Intervention Information Intervention Type:*ECHOLS-Signed Date of Service:08/05/2017 11:01 AM Patient Type:Observation Staff Member:MAXWELL Liz Michelle Hours: Discipline: Severity: Comment:
[2017-08-05] MEDS ORDERED: FAMOTIDINE 20 MG TAB PO SCH (18:00)
[2017-08-05] MEDS ORDERED: TAMSULOSIN HCL 0.4 MG CAP PO SCH (18:30)
[2017-08-05] MEDS ORDERED: NON-FORMULARY NEW DRUG (Ranitidine Hcl [Zantac] 300 MG) PO SCH (18:30)
[2017-08-05] MEDS ORDERED: ALLOPURINOL 100 MG TAB PO SCH (18:30)
[2017-08-05] MEDS ORDERED: FLUTICASONE EACHNARE SCH (21:00)
[2017-08-05] MEDS ORDERED: AZELASTINE EACHNARE SCH (21:00)
[2017-08-06] MEDS ORDERED: CALCITRIOL 0.25 MCG CAP PO SCH (08:00)
[2017-08-06] MEDS ORDERED: NON-FORMULARY NEW DRUG (Omeprazole [Prilosec 20 Mg] 20 MG) PO SCH (09:00)
[2017-08-06] MEDS ORDERED: MULTIVITAMINS 1 EACH TAB PO SCH (09:00)
[2017-08-06] MEDS ORDERED: [UNRECOGNIZED DRUG - OTHER] PO SCH (09:00)
[2017-08-06] MEDS ORDERED: PANTOPRAZOLE SODIUM 40 MG TAB PO SCH (09:00)
[2017-08-06] MEDS ORDERED: Herbals/Supplements -Info Only PO SCH (09:00)
[2017-08-06] MEDS ORDERED: LACTOBACIL PO SCH (09:00)
[2017-08-06] MEDS ORDERED: CLOPIDOGREL BISULFATE 75 MG TAB PO SCH (09:00)
[2017-08-06] MEDS ORDERED: FERROUS SULFATE 325 MG TAB PO SCH (09:00)
[2017-08-06] MEDS ORDERED: PSYLLIUM METAMUCIL 1 PKT PO SCH (09:00)
== END 2017-08-05 15:30 | disposition home health service (06) ==
LOC: EDUNIT# → F2W 23:45
PROVIDERS: ADMIT Student in an Organized Health Care Education/Training Program; ATTEND Family Medicine
DX: E86.0 Dehydration (principal); R07.9 Chest pain, unspecified; N17.9 Acute kidney failure, unspecified; F03.90 Unspecified dementia, unspecified severity, without behavioral disturbance, psychotic disturbance, mood disturbance, and anxiety; I12.9 Hypertensive chronic kidney disease with stage 1 through stage 4 chronic kidney disease, or unspecified chronic kidney disease; N18.3 Chronic kidney disease, stage 3 (moderate); G25.0 Essential tremor; D64.9 Anemia, unspecified; I44.0 Atrioventricular block, first degree; I25.10 Atherosclerotic heart disease of native coronary artery without angina pectoris; E78.5 Hyperlipidemia, unspecified; M10.9 Gout, unspecified; J44.9 Chronic obstructive pulmonary disease, unspecified; N40.0 Benign prostatic hyperplasia without lower urinary tract symptoms; Z86.73 Personal history of transient ischemic attack (TIA), and cerebral infarction without residual deficits; Z95.5 Presence of coronary angioplasty implant and graft; Z66 Do not resuscitate
CPT/HCPCS: 71010; 93005; 97165; 97535; 99285; G0378; G8987; G8988

== ENCOUNTER 2017-08-08 16:42 | Emergency (ER) | payer OTHER, BC ==
[2017-08-08] MEDS ORDERED: NS 500 ML IV ONE (16:49)
--- NOTE | 2017-08-08 16:49 | EDPHY ---
H & P Time Seen by Provider: 08/08/17 16:44 HPI/ROS: CHIEF COMPLAINT: Weakness HISTORY OF PRESENT ILLNESS: Patient is an 79-year-old male who lives in assisted living with a history of CKD, hypertension, coronary artery disease, and dementia who presents to the emergency department with increased weakness. Per EMS the staff stated the patient had black stool. EMS checked stool in stated that was dark brown greenish color. They stated it was not black. The patient comes of mild weakness but has no other complaints. He has no chest pain or shortness of breath. No abdominal pain. No nausea or vomiting. No headache. No fevers or chills. No dysuria frequency REVIEW OF SYSTEMS: The patient's review of systems seems limited due to his dementia. He denies everything when asking questions. Past Medical/Surgical History: Includes coronary artery disease, coronary renal failure, cognitive impairment, hypertension, anemia, BPH, HLD, essential tremor, TIAs Past surgical history: Includes frontal sinus surgery, cataract repair, PCI Family history: Noncontributory Social history: Patient lives in assisted living. Smoking Status: Never smoked Physical Exam: Vitals noted GENERAL: No acute distress, alert. HEENT: Eyes normal to inspection, normal pharynx, no signs of dehydration. NECK: No thyromegaly, no lymphadenopathy, supple. RESPIRATORY: Clear to auscultation bilaterally, no rales, rhonchi or wheezing. CVS: Regular rate and rhythm, no rubs, murmurs, or gallops. ABDOMEN: Soft, nontender, nondistended, no organomegaly. BACK: Normal to inspection, no CVA tenderness. SKIN: Normal color, no rash, warm, dry. No pallor. EXTREMITIES: No pedal edema, no calf tenderness, no Homans sign or cords, no joint swelling. NEURO/PSYCH: Alert and oriented x1, normal mood and affect, normal motor sensory exam. No obvious cranial nerve deficit. Constitutional: Initial Vital Signs Temperature (C) 36.8 C 08/08/17 16:40 Heart Rate 90 08/08/17 16:40 Respiratory Rate 18 08/08/17 16:40 Blood Pressure 117/89 H 08/08/17 16:40 O2 Sat (%) 93 08/08/17 16:40 O2 Delivery Mode Room Air Allergies/Adverse Reactions: ibuprofen [From Motrin] Allergy (Verified 08/04/17 21:48) Home Medications: Medication Instructions Recorded Acetaminophen [Tylenol 325mg (*)] 650 mg PO Q6HRS PRN 08/04/17 Allopurinol [Allopurinol 100 MG 100 mg PO BID@0730,182908/04/17 (*)] Azelastine/Fluticasone [Dymista 1 spray EACHNARE BID 08/04/17 Nasal [place]] Calcitriol [Calcitriol (*)] 0.25 mcg PO MWF 08/04/17 Calcium Carbonate [Tums 500MG (*)] 500 mg PO DAILY PRN 08/04/17 Clopidogrel Bisulfate [Plavix (*)] 75 mg PO DAILY 08/04/17 Ferrous Sulfate [Ferrous Sulf 325 325 mg PO DAILY 08/04/17 MG (*)] Lactobacil 2-S.thermo-Bifido 1 1 each PO DAILY 08/04/17 [Vsl#3 Packet] Omeprazole [Prilosec 20 mg] 20 mg PO DAILY 08/04/17 Polyethylene Glycol 3350 [Miralax 17 gm PO DAILY PRN 08/04/17 17 gm (*)] Psyllium Husk (with Sugar) 1 each PO DAILY 08/04/17 [Metamucil Packet] Ranitidine HCl [Zantac] 300 mg PO DAILY@182908/04/17 Tamsulosin HCl [Flomax 0.4 MG (*)] 0.4 mg PO DAILY@182908/04/17 Tetrahydrozoline 0.05% [Visine (*)] 1 drop EACHEYE DAILY PRN 08/04/17 amLODIPine BESYLATE [Norvasc 2.5 2.5 mg PO DAILY@182908/04/17 mg (*)] hydrOXYzine HCL [hydrOXYzine HCL 12.5 mg PO Q6HRS PRN 08/04/17 (RX)] Herbals/Supplements -Info Only 1 ea PO DAILY 08/05/17 Multivitamins [Multivitamin (*)] 1 each PO DAILY 08/05/17 Medical Decision Making - Diagnostics Imaging Results: Imaging Impressions Chest X-Ray 08/08/17 17:28 Impression: 1. No active cardiopulmonary disease seen. 2. Fibrotic streaks at the left base stable in appearance. Abdomen/Pelvis CT 08/08/17 18:47 Impression: 1. No evidence of urinary tract calculus. 2. Stable incidental benign-appearing presumed cyst right lobe liver inferomedially. 3. Stable uncomplicated extensive diverticulosis sigmoid colon. 4. Scoliosis and degenerative disk disease involving the lumbar spine with spinal stenosis noted at L3-L4 and L4-L5. Attention: This CT examination is specifically designed to evaluate patients who are clinically suspected of having acute obstructive uropathy. This examination does not use radiographic contrast, and as such, provides only a limited evaluation of the abdomen, pelvis and retroperitoneum. If there is further clinical suspicion for pathological conditions other than obstructive uropathy, a complete CT evaluation of the abdomen and pelvis utilizing intravenous, oral, and rectal contrast should be considered. Findings discussed with Angelica Dugan M.D. at 20:07 hour, 08/08/2017. ED Course/Re-evaluation: In the emergency department I discussed possible etiologies with the patient. I answered all his questions. Laboratory studies, EKG and chest x-ray were ordered. I reviewed the patient's laboratory studies. The patient's hematocrit is 30. I compared this with a previous values. This is been is consistent level for the past few measurements. Patient also has an elevated creatinine of 2.8. I compared this with previous creatinine of 3.0. Troponin is negative. Chest x-ray: No acute disease noted. Please refer the dictated report. EKG: Sinus rhythm at 79. Mobitz type 1 av block. Right bundle branch block. 1845: I discussed the case with the patient's daughter who arrived in the room. She states that he has been complaining of abdominal pain for the past few days. Last evening he was screaming out in pain. She asked if there was a possibility for imaging. CT scan without IV contrast was ordered due to the patient's elevated creatinine. Patient's occult blood screen was negative CT of the abdomen and pelvis: Please refer the dictated report by Dr. Rufino Hebert. No acute disease noted. The patient does have diverticulosis with no diverticulitis. 2015: I I discussed the result with the patient and his family. Answered all their questions. On recheck the patient was doing well. He had no complaints. Abdomen was soft, nontender nondistended. Patient will be discharged home. He and his daughter were given warnings prior to leaving. He Differential Diagnosis: My differential includes but is not limited to ACS, acute TN, dysrhythmia, urinary tract infection, bronchitis, pneumonia, influenza, electrolyte abnormality, sugar abnormality, renal insufficiency, renal failure, dehydration , bacteremia, sepsis - Data Points Laboratory Results: Laboratory Results 08/08/17 17:27 08/08/17 17:27 08/08/17 08/08/17 08/08/17 19:17 18:50 17:27 WBC RBC Hgb Hct MCV MCH MCHC RDW Plt Count MPV Neut % (Auto) Lymph % (Auto) [place] % (Auto) Eos % (Auto) Baso % (Auto) Nucleat RBC Rel Count Absolute Neuts (auto) Absolute Lymphs (auto) Absolute Monos (auto) Absolute Eos (auto) Absolute Basos (auto) Absolute Nucleated RBC Immature Gran % Immature Gran # PT INR APTT Sodium 142 mEq/L mEq/L (134-144) Potassium 4.8 mEq/L mEq/L (3.5-5.2) Chloride 108 mEq/L mEq/L (97-110) Carbon Dioxide 20 mEq/l L mEq/l (22-31) Anion Gap 14 mEq/L mEq/L (8-16) BUN 50 mg/dL H mg/dL (7-23) Creatinine 2.8 mg/dL H mg/dL (0.7-1.3) Estimated GFR 21 Glucose 80 mg/dL mg/dL (70-100) Calcium 10.1 mg/dL mg/dL (8.5-10.4) Troponin I < 0.012 ng/mL ng/mL (0.000-0.034) Urine Color PALE YELLOW Urine Appearance CLEAR Urine pH 6.0 (5.0-7.5) Ur Specific [place] 1.010 (1.002-1.030) Urine Protein 2+ H (NEGATIVE) Urine Ketones NEGATIVE (NEGATIVE) Urine Blood NEGATIVE (NEGATIVE) Urine Nitrate NEGATIVE (NEGATIVE) Urine Bilirubin NEGATIVE (NEGATIVE) Urine Urobilinogen NEGATIVE EU EU (0.2-1.0) Ur Leukocyte Esterase NEGATIVE (NEGATIVE) Urine RBC 1-3 /hpf /hpf (0-3) Urine WBC 1-3 /hpf /hpf (0-3) Ur Epithelial Cells TRACE /lpf /lpf (NONE-1+) Urine Mucus TRACE /lpf /lpf (NONE-1+) Urine Glucose NEGATIVE (NEGATIVE) Stool Occult Bld Scrn NEGATIVE (NEGATIVE) 08/08/17 08/08/17 17:27 17:27 WBC 5.11 10^3/uL 10^3/uL (3.80-9.50) RBC 3.24 10^6/uL L 10^6/uL (4.40-6.38) Hgb 11.0 g/dL L g/dL (13.7-17.5) Hct 30.8 % L % (40.0-51.0) MCV 95.1 fL fL (81.5-99.8) MCH 34.0 pg pg (27.9-34.1) MCHC 35.7 g/dL g/dL (32.4-36.7) RDW 14.7 % % (11.5-15.2) Plt Count 173 10^3/uL 10^3/uL (150-400) MPV 9.1 fL fL (8.7-11.7) Neut % (Auto) 54.4 % % (39.3-74.2) Lymph % (Auto) 32.5 % % (15.0-45.0) [place] % (Auto) 8.8 % % (4.5-13.0) Eos % (Auto) 2.3 % % (0.6-7.6) Baso % (Auto) 0.6 % % (0.3-1.7) Nucleat RBC Rel Count 0.0 % % (0.0-0.2) Absolute Neuts (auto) 2.78 10^3/uL 10^3/uL (1.70-6.50) Absolute Lymphs (auto) 1.66 10^3/uL 10^3/uL (1.00-3.00) Absolute Monos (auto) 0.45 10^3/uL 10^3/uL (0.30-0.80) Absolute Eos (auto) 0.12 10^3/uL 10^3/uL (0.03-0.40) Absolute Basos (auto) 0.03 10^3/uL 10^3/uL (0.02-0.10) Absolute Nucleated RBC 0.00 10^3/uL 10^3/uL (0-0.01) Immature Gran % 1.4 % H % (0.0-1.1) Immature Gran # 0.07 10^3/uL 10^3/uL (0.00-0.10) PT 13.7 SEC SEC (12.0-15.0) INR 1.03 (0.83-1.16) APTT 25.4 SEC SEC (23.0-38.0) Sodium Potassium Chloride Carbon Dioxide Anion Gap BUN Creatinine Estimated GFR Glucose Calcium Troponin I Urine Color Urine Appearance Urine pH Ur Specific [place] Urine Protein Urine Ketones Urine Blood Urine Nitrate Urine Bilirubin Urine Urobilinogen Ur Leukocyte Esterase Urine RBC Urine WBC Ur Epithelial Cells Urine Mucus Urine Glucose Stool Occult Bld Scrn Medications Given: Discontinued Medications Sodium Chloride (Ns) 500 mls @ 1,000 mls/hr IV EDNOW ONE PRN Reason: Protocol Stop: 08/08/17 17:18 Last Admin: 08/08/17 18:10 Dose: 500 mls Departure - Departure Disposition: Home, Routine, Self-Care Clinical Impression: Weakness Condition: Good Instructions: Weakness (ED) Additional Instructions: Return with increasing abdominal pain, shortness of breath, diarrhea, vomiting or any other concerns. Referrals: Primary, care provider [Other] - As per Instructions
[2017-08-08 17:35] LABS: PLATELET COUNT 173 10^3/uL (150-400)
[2017-08-08 17:43] LABS: INR 1.03 (0.83-1.16); PROTIME(PATIENT) 13.7 SEC (12.0-15.0)
--- NOTE | 2017-08-08 18:27 | CPEKG ---
Heart Rate: 79 RR Interval: 759 QRSD Interval: 140 QT Interval: 476 QTC Interval: 546 P [place]: 0 QRS [place]: 14 T Wave [place]: 3 EKG Severity - ABNORMAL ECG - EKG Impression: SINUS RHYTHM EKG Impression: MOBITZ I AV BLOCK ([place]BACH) EKG Impression: RIGHT BUNDLE BRANCH BLOCK Electronically Signed By: Angelica Dugan 08-Aug-2017 21:20:58
[2017-08-08 20:40] VITALS: BP 173/96; PULSE 96; TEMP 98.1; O2SAT 96
[2017-08-08 20:42] VITALS: RESP 16
== END 2017-08-08 20:40 | disposition home or self-care (01) ==
LOC: EDUNIT#
DX: R53.1 Weakness (principal); I25.10 Atherosclerotic heart disease of native coronary artery without angina pectoris; E86.9 Volume depletion, unspecified; I12.9 Hypertensive chronic kidney disease with stage 1 through stage 4 chronic kidney disease, or unspecified chronic kidney disease; N18.9 Chronic kidney disease, unspecified

== ENCOUNTER 2017-08-26 12:09 | Inpatient (IN) | payer OTHER, BC ==
[2017-08-26 13:09] LABS: PLATELET COUNT 159 10^3/uL (150-400)
--- NOTE | 2017-08-26 13:17 | EDPHY ---
H & P Stated Complaint: cough, weakness Time Seen by Provider: 08/26/17 13:13 HPI/ROS: CHIEF COMPLAINT: Cough, acute weakness HISTORY OF PRESENT ILLNESS: The patient presents the ED for evaluation of cough and acute weakness. The patient has a history of chronic renal failure, anemia and dementia. The patient reportedly had been seen by a nurse practitioner at his home. He was noted to have a hematocrit of 25%. He has chronic renal failure with a baseline creatinine of 2.9. The patient had a negative rapid flu test. The patient was referred to the ED for further evaluation. The patient's daughter reports he developed a cough several days ago. It has become productive and the patient has had a significant change in his sputum. He is also developed bilateral conjunctival exudate. The patient has a history of chronic anemia from his kidney disease. There has been no history of melena. REVIEW OF SYSTEMS: A comprehensive 10 point review of systems is otherwise negative aside from elements mentioned in the history of present illness. Source: Patient Exam Limitations: No limitations - Personal History Current Tetanus/Diphtheria Vaccine: Yes Current Tetanus Diphtheria and Acellular Pertussis (TDAP): Yes Tetanus Vaccine Date: < 10 YEARS - Medical/Surgical History Hx Asthma: No Hx Chronic Respiratory Disease: No Hx Diabetes: No Hx Cardiac Disease: Yes Hx Renal Disease: Yes Hx Cirrhosis: No Hx Alcoholism: No Hx HIV/AIDS: No Hx Splenectomy or Spleen Trauma: No Other PMH: Colitis, CKD stage3, Chronic sinus, HTN, Cardiac stents x2, Essential tremor, CVA Sep 2015, diverticulos, arthrisis, Color blind, CACHIL DEHE, Gout , BPH, c-diff - Social History Smoking Status: Never smoked - Physical Exam Exam: General Appearance: Alert, no distress Eyes: Pupils equal and round no pallor or injection ENT, Mouth: Dry mucous membranes Respiratory: Rhonchorous breath sounds left lung base Cardiovascular: Regular rate and rhythm Gastrointestinal: Abdomen is soft and nontender, no masses, bowel sounds normal Neurological: A&O, normal motor function, normal sensory exam, normal cranial nerves Skin: Warm and dry, no rashes Musculoskeletal: Neck is supple nontender Extremities: symmetrical, full range of motion Constitutional: Initial Vital Signs Temperature (C) 37 C 08/26/17 12:10 Heart Rate 80 08/26/17 12:10 Respiratory Rate 16 08/26/17 12:10 Blood Pressure 117/88 H 08/26/17 12:10 O2 Sat (%) 98 08/26/17 12:10 O2 Delivery Mode Room Air Allergies/Adverse Reactions: ibuprofen [From Motrin] Allergy (Verified 08/26/17 12:41) Home Medications: Medication Instructions Recorded Acetaminophen [Tylenol 325mg (*)] 650 mg PO Q6HRS PRN 08/04/17 Allopurinol [Allopurinol 100 MG 100 mg PO BID@0730,1830 08/04/17 (*)] Azelastine/Fluticasone [Dymista 1 spray EACHNARE BID 08/04/17 Nasal Dinuba] Calcitriol [Calcitriol (*)] 0.25 mcg PO MWF 08/04/17 Calcium Carbonate [Tums 500MG (*)] 500 mg PO DAILY PRN 08/04/17 Clopidogrel Bisulfate [Plavix (*)] 75 mg PO DAILY 08/04/17 Ferrous Sulfate [Ferrous Sulf 325 325 mg PO DAILY 08/04/17 MG (*)] Polyethylene Glycol 3350 [Miralax 17 gm PO DAILY PRN 08/04/17 17 gm (*)] Psyllium Husk (with Sugar) 1 each PO DAILY 08/04/17 [Metamucil Packet] Ranitidine HCl [Zantac] 300 mg PO DAILY@182908/04/17 Tamsulosin HCl [Flomax 0.4 MG (*)] 0.4 mg PO Q48H 08/04/17 amLODIPine BESYLATE [Norvasc 2.5 2.5 mg PO DAILY@182908/04/17 mg (*)] Herbals/Supplements -Info Only 1 ea PO DAILY 08/05/17 Multivitamins [Multivitamin (*)] 1 each PO DAILY 08/05/17 FOLIC ACID 0.4 mg PO DAILY 08/26/17 Losartan Potassium [Cozaar 50 mg 50 mg PO DAILY 08/26/17 (*)] Medical Decision Making - Diagnostics Imaging Results: Imaging Impressions Chest X-Ray 08/26/17 13:04 Impression: Poor inspiratory effort with mild atelectasis in the left lower lobe versus less likely early infiltrate. No other findings for acute cardiopulmonary abnormality. Chronic findings as above. ED Course/Re-evaluation: ED Course: The patient presents to the ED with worsening cough which is now become productive an associated will weakness. The patient clinically has evidence of an early pneumonia in his left lung base. The patient had blood cultures x2 obtained in the emergency department. He is started on IV Levaquin. Consultation was made with Dr. Addy Salcedo from the hospitalist service. The patient will be admitted to the hospital. Differential Diagnosis: Differential diagnosis includes pneumonia, bronchitis, influenza, worsening renal failure - Data Points Laboratory Results: Laboratory Results 08/26/17 12:55 08/26/17 12:55 08/26/17 08/26/17 08/26/17 12:55 12:55 12:55 WBC 9.10 10^3/uL 10^3/uL (3.80-9.50) RBC 2.72 10^6/uL L 10^6/uL (4.40-6.38) Hgb 9.3 g/dL L g/dL (13.7-17.5) Hct 26.3 % L % (40.0-51.0) MCV 96.7 fL fL (81.5-99.8) MCH 34.2 pg H pg (27.9-34.1) MCHC 35.4 g/dL g/dL (32.4-36.7) RDW 14.6 % % (11.5-15.2) Plt Count 159 10^3/uL 10^3/uL (150-400) MPV 9.3 fL fL (8.7-11.7) Neut % (Auto) 83.6 % H % (39.3-74.2) Lymph % (Auto) 7.8 % L % (15.0-45.0) Jennings % (Auto) 7.5 % % (4.5-13.0) Eos % (Auto) 0.4 % L % (0.6-7.6) Baso % (Auto) 0.2 % L % (0.3-1.7) Nucleat RBC Rel Count 0.0 % % (0.0-0.2) Absolute Neuts (auto) 7.60 10^3/uL H 10^3/uL (1.70-6.50) Absolute Lymphs (auto) 0.71 10^3/uL L 10^3/uL (1.00-3.00) Absolute Monos (auto) 0.68 10^3/uL 10^3/uL (0.30-0.80) Absolute Eos (auto) 0.04 10^3/uL 10^3/uL (0.03-0.40) Absolute Basos (auto) 0.02 10^3/uL 10^3/uL (0.02-0.10) Absolute Nucleated RBC 0.00 10^3/uL 10^3/uL (0-0.01) Immature Gran % 0.5 % % (0.0-1.1) Immature Gran # 0.05 10^3/uL 10^3/uL (0.00-0.10) Sodium 145 mEq/L mEq/L (135-145) Potassium 4.2 mEq/L mEq/L (3.5-5.2) Chloride 110 mEq/L mEq/L (97-110) Carbon Dioxide 18 mEq/l L mEq/l (22-31) Anion Gap 17 mEq/L H mEq/L (8-16) BUN 41 mg/dL H mg/dL (7-23) Creatinine 2.8 mg/dL H mg/dL (0.7-1.3) Estimated GFR 21 Glucose 107 mg/dL H mg/dL (70-100) Calcium 9.4 mg/dL mg/dL (8.5-10.4) Procalcitonin Pending Medications Given: Levofloxacin/Dextrose (Levaquin 750 Mg (Premix)) 150 mls @ 100 mls/hr IV EDNOW ONE PRN Reason: Protocol Stop: 08/26/17 16:35 Last Admin: 08/26/17 16:11 Dose: 150 mls Departure - Departure Disposition: [facility] Inpatient Acute Clinical Impression: Renal failure, chronic Pneumonia Qualifiers: Laterality: left Lung location: lower lobe of lung Condition: Fair
[2017-08-26] MEDS ORDERED: ONDANSETRON DISINTEGRATING 4 MG TAB PO PRN (15:39)
[2017-08-26] MEDS ORDERED: ONDANSETRON 4 MG/2 ML VIAL IVP PRN (15:39)
[2017-08-26] MEDS ORDERED: NS 1,000 ML IV SCH (15:45)
[2017-08-26] MEDS ORDERED: IPRATROPIUM/ALBUTEROL 3 ML DEYVIAL IH SCH (16:00)
[2017-08-26] MEDS ORDERED: CALCIUM CARBONATE 500 MG CHEWABLE TAB PO PRN (16:13)
[2017-08-26] MEDS ORDERED: POLYETHYLENE GLYCOL 3350 17 GM PKT PO PRN (16:13)
--- NOTE | 2017-08-26 16:35 | GHP ---
[f rep st] HISTORY AND PHYSICAL DATE OF ADMISSION: 08/26/2017 CHIEF COMPLAINT: Not feeling well. HISTORY OF PRESENT ILLNESS: This is an 87-year-old man with a history of mild cognitive impairment, heart disease, chronic kidney disease, C diff, who presents not feeling well. This started approximately 4 days prior to presentation with what appeared to be a viral illness. They called the [facility] who came out and evaluated him, did not recommend antibiotics at that point. His symptoms progressed to yellowish sinus discharge, worsening cough, worsening weakness, more confusion. No fever to his daughter's knowledge. Because of this, [facility] were called out again, and this time provided him with some IV fluids and then sent him to the emergency department. It is unclear if he is having any urinary symptoms. PAST MEDICAL/SURGICAL HISTORY: 1. Chronic kidney disease, baseline creatinine in the upper 2s. 2. Anemia of chronic kidney disease. 3. Coronary artery disease, status post PCI x2. 4. Mild cognitive impairment. 5. Hypertension. 6. BPH. 7. Hyperlipidemia. 8. Essential tremor. 9. TIA. 10. History of Clostridium difficile. MEDICATIONS: Please see medication reconciliation. ALLERGIES: Ibuprofen. FAMILY HISTORY: Reviewed and noncontributory. SOCIAL HISTORY: He is accompanied by his daughter. He lives at [facility] [place]. REVIEW OF SYSTEMS: A 10-point review of systems is conducted and is negative except per HPI. PHYSICAL EXAM: VITAL SIGNS: Blood pressure 117/88, heart rate 80, respiration rate 16, saturating 98% on room air, temperature 37. GENERAL: The patient is a very pleasant man who appears comfortable, though his daughter answers most questions for him. HEENT: Shows him to have a Band-Aid on his nose, otherwise he is atraumatic. CARDIOVASCULAR: Shows him to be irregularly irregular. He has I believe an extra systolic murmur, though it is difficult to discern. PULMONARY: Shows diffuse rhonchi. I do not appreciate any focal rales. ABDOMEN : Soft, nontender, nondistended. SKIN: Shows no rash. : No Martins. NEUROLOGICAL: Shows him to be alert and oriented times 2-3. He has a nonfocal neurologic exam. PSYCHIATRIC: Shows normal mood and affect. LABS: White count is 9, hemoglobin is 9.3, creatinine is 2.8, calcium is 9.4, bicarb is 18. DATA: 1. I discussed with Dr. Lin. Will admit to med/surg. 2. I personally viewed and interpreted his chest x-ray, this shows atelectasis versus early infiltrate in the left base. IMPRESSION/PLAN: 1. Pulmonary: This may be a viral syndrome with a bronchitis. There is a questionable infiltrate on chest x-ray. No white count, afebrile here. Agree with empiric antibiotics, we will continue these. We will check sputum culture , respiratory viral panel, procalcitonin. Would consider stopping antibiotics soon based on clinical course and other findings. We will give him nebulizers as well as Mucinex. 2. History of Clostridium difficile: We will place him on empiric vancomycin prophylaxis while he is on antibiotics. This is another reason to decrease antibiotic exposure as much as possible. 3. Chronic kidney disease: Approximately at his baseline. I think he is a little dry right now. We will give him an additional liter of normal saline. 4. Anemia: Close to his baseline versus somewhat lower than normal. Will recheck this tomorrow. 5. History of coronary artery disease, status post percutaneous coronary intervention x2. No chest pain currently. 6. Mild cognitive impairment/delirium: Worsened due to acute illness. He is at risk for hospital-acquired delirium. I have requested to try to get him a room with a better view so he does not get any day/night reversal. 7. Code status: Per his daughter, he would like to be do not resuscitate. 8. Venous thromboembolism risk is [id number]. I will give him heparin. /[id number]/MODL MTDD
[2017-08-26] MEDS: FAMOTIDINE 20 MG TAB PO SCH (18:24)
[2017-08-26] MEDS: TAMSULOSIN HCL 0.4 MG CAP PO SCH (18:24)
[2017-08-26] MEDS: ALLOPURINOL 100 MG TAB PO SCH (18:24)
[2017-08-26] MEDS: ACETAMINOPHEN 325 MG TAB PO PRN (18:25)
[2017-08-26] MEDS ORDERED: NON-FORMULARY NEW DRUG (Ranitidine Hcl [Zantac] 300 MG) PO SCH (18:30)
[2017-08-26] MEDS: CALCITRIOL 0.25 MCG CAP PO SCH (18:32)
--- NOTE | 2017-08-26 20:24 | CPEKG ---
Heart Rate: 133 RR Interval: 451 QRSD Interval: 120 QT Interval: 320 QTC Interval: 476 QRS [place]: 17 T Wave [place]oro: -14 EKG Severity - ABNORMAL ECG - EKG Impression: SINUS TACHYCARDIA EKG Impression: RBBB AND LPFB Electronically Signed By: Chato Dias 27-Aug-2017 12:37:15
[2017-08-26] MEDS ORDERED: DILTIAZEM 125 MG in D5W 125 ML IV SCH (20:30)
[2017-08-26] MEDS ORDERED: DILTIAZEM HCL/D5W 125 ML IV SCH (20:30)
[2017-08-26] MEDS ORDERED: IPRATROPIUM/ALBUTEROL 3 ML DEYVIAL IH PRN (20:35)
--- NOTE | 2017-08-26 20:40 | HOSPPROG ---
Hospitalist Progress Note Assessment/Plan: Called emergently to bedside for worsening tachycardia. Also retaining urine 700cc. Patient appears comfortable, worsening confusion BP 154/88, HR 130 ECG with tachycardia, appears junctions, may be a-fib Plan: - check lytes and trops - transfer to PCU - dilt gtt, goal HR <100 - straight cath, check UA 35 minutes of floor CC time in addition to time spent on admission Objective: Vital Signs Temp Pulse Resp BP Pulse Ox 37.0 C 128 H 16 154/88 H 99 08/26/17 19:38 08/26/17 19:38 08/26/17 19:38 08/26/17 19:38 08/26/17 19:38 08/25/17 08/26/17 08/27/17 05:59 05:59 05:59 Intake Total 500 Output Total 900 Balance -400 ICD10 Worksheet Patient Problems: Problems Problem Status Onset Tachycardia Acute Renal insufficiency Acute Pneumonia Acute Renal failure, chronic Acute Recurrent Clostridium difficile diarrhea Acute Fever and chills Acute Leukocytosis Acute C. difficile diarrhea Acute ~12/17/16 Syncope Acute Acute on chronic renal insufficiency Acute Dehydration Acute Renal failure Acute Mental status change Acute Diverticulitis large intestine Acute Hypotension Acute Diarrhea Acute Vomiting Acute
[2017-08-26] MEDS: VANCOMYCIN 125 MG/2.5 ML UDL PO SCH (21:16)
[2017-08-26] MEDS ORDERED: D5W IV ONE (22:30)
[2017-08-26] MEDS ORDERED: SODIUM PHOS IV ONE (22:30)
[2017-08-26] MEDS: HEPARIN 5,000 UNIT/0.5 ML SYR SC SCH (23:27)
[2017-08-26] MEDS: guaiFENesin 600 MG TAB.ER PO SCH (23:27)
[2017-08-27] MEDS: Azelastine/Fluticasone [Dymista Nasal Spray] 1 SPRAY EACHNARE SCH ×3 (00:21→20:37)
[2017-08-27] MEDS: ACETAMINOPHEN 325 MG TAB PO PRN (03:30)
[2017-08-27 05:09] LABS: PLATELET COUNT 173 10^3/uL (150-400)
[2017-08-27] MEDS: HEPARIN 5,000 UNIT/0.5 ML SYR SC SCH ×3 (08:18→21:41)
--- NOTE | 2017-08-27 09:52 | ASMTCASEMG ---
Living Arrangements What is your living Answers: Alone arrangement? Who do you live with? Type Of Residence What kind of residence do Answers: House you live in? Discharge Plan Comments Coordination Status Comments Notes: CM spoke w/ MARIAJOSE Perera regarding d/c POC. Pt is a 87 y/o man admitted for pneumonia, dehydration and weakness. Pt lives at [facility]. Pt has a supportive daughter name Qi. Therapies have been ordered and awaiting recommendations. Needs at [facility] at this time. CM to follow. Plan: TBD Date Signed: 08/27/2017 09:51 AM Electronically Signed By:MAXWELL Carter
[2017-08-27] MEDS: guaiFENesin 600 MG TAB.ER PO SCH ×2 (10:54→20:37)
[2017-08-27] MEDS: PSYLLIUM METAMUCIL 1 PKT PO SCH (10:54)
[2017-08-27] MEDS: CALCITRIOL 0.25 MCG CAP PO SCH (10:54)
[2017-08-27] MEDS: ALLOPURINOL 100 MG TAB PO SCH ×2 (10:54→18:00)
[2017-08-27] MEDS: CLOPIDOGREL BISULFATE 75 MG TAB PO SCH (10:54)
[2017-08-27] MEDS: FOLIC ACID 1 MG TAB PO SCH (10:54)
[2017-08-27] MEDS: FERROUS SULFATE 325 MG TAB PO SCH (10:54)
[2017-08-27] MEDS: VANCOMYCIN 125 MG/2.5 ML UDL PO SCH ×2 (11:00→20:37)
--- NOTE | 2017-08-27 15:02 | ASMTCMCOM ---
CM Note CM Note Notes: CM met w/ pt and daughter for dispo planning. CM informed pt of therapies recommendations. Daughter is hoping that pt can return to [facility]. Pt receives 8 hours of caregiving along w/ supportive staff at facility. Daughter reports that pt is current w/ [facility]. CM sent updates to [facility]. CM to follow for d/c needs. Plan: [facility] w/ [facility], Date Signed: 08/27/2017 03:02 PM Electronically Signed By:MAXWELL Carter
[2017-08-27] MEDS: NS 1,000 ML IV SCH ×2 (15:54→18:00)
--- NOTE | 2017-08-27 16:46 | HOSPPROG ---
Hospitalist Progress Note Assessment/Plan: 87-year-old male with known prior history of coronary artery disease in proximal atrial fibrillation presented with acute respiratory distress and was found to have a probable acute viral bronchitis with probable left lower lobe pneumonia. Patient is new to me today. last prior 24 hr he has onset of proximal atrial fibrillation was transferred to the PACU on diltiazem and is now converted to NSR. -proximal atrial fibrillation now converted to normal sinus rhythm on diltiazem and currently stable. A cardiac echo was pending to assess possibilities of infection. -acute viral tracheobronchitis with left lower lobe pneumonia. He is currently improving on antiviral therapy and bronchodilators. -chronic kidney disease and probably near his baseline of 1.8-2.0. He appears euvolemic and is taking good oral fluids. -C difficile by history. We will recheck the stool. He is currently in isolation -mild cognitive impairment: Gentleman is currently more deeply impaired that is described by his daughter. This is likely secondary to his acute illness and the proximal atrial fibrillation. I expect this will improve slowly as we provide support for his pulmonary care. Plan: Continue cardiac monitoring and his active pulmonary care. He is slowly improving with PT. Disposition: He should be continued as an inpatient due to his active pulmonary disease and the evidence of atrial fibrillation. I expect 1-2 more days of in-hospital care will be needed Subjective: Reports he is not short of breath nor is he having chest pain. He is actively coughing and feels weak and requires a 2 person assist. His interactions are slow in her described as less than his normal levels of interaction Objective: Vital Signs Temp Pulse Resp BP Pulse Ox 36.9 C 77 19 149/64 H 99 08/27/17 12:44 08/27/17 12:44 08/27/17 12:44 08/27/17 12:44 08/27/17 12:44 - Time Spent With Patient Time Spent with Patient: greater than 35 minutes Time Spent with Patient: Greater than 35 minutes spent on this patients care, greater than 50% of time spent counseling, educating, and coordinating care regarding the above mentioned plan. - Pending Discharge Pending Discharge Within 24 Hours: No Pending Discharge Within 48 Hours: No - Physical Exam Constitutional: no apparent distress, chronically ill appearing Eyes: PERRL, anicteric sclera Ears, Nose, Mouth, Throat: moist mucous membranes, hard of hearing Cardiovascular: regular rate and rhythym, systolic murmur, other (Monitor rhythm previously showed atrial fibrillation with rapid ventricular response which is now converted to normal sinus rhythm at approximately 90 on diltiazem) Respiratory: reduced air movement, inspiratory crackles, bronchial breath sounds , rhonchi Gastrointestinal: normoactive bowel sounds, soft, non-tender abdomen, no palpable masses Genitourinary: no bladder fullness, other (Is probable BPH as he has a residual of approximately 300 cc. A Martins catheter may be necessary occur.) Skin: warm Musculoskeletal: generalized weakness Neurologic: CN II-XII Intact, other (He is slow to respond and easily confused and only oriented x2 at the moment. He may be oriented x3 but he has very slow of cognition) ICD10 Worksheet Patient Problems: Problems Problem Status Onset Tachycardia Acute Renal insufficiency Acute Pneumonia Acute Renal failure, chronic Acute Recurrent Clostridium difficile diarrhea Acute Fever and chills Acute Leukocytosis Acute C. difficile diarrhea Acute ~12/17/16 Syncope Acute Acute on chronic renal insufficiency Acute Dehydration Acute Renal failure Acute Mental status change Acute Diverticulitis large intestine Acute Hypotension Acute Diarrhea Acute Vomiting Acute
--- NOTE | 2017-08-27 16:56 | PDMN ---
Medical Necessity Medical necessity: C/M review: est. > 2 MN LOS for eval and TX of acute proximal atrial fibrillation now converted to sinus rhythm, acute and persistent viral tracheobronchitis with left lower lobe pneumonia, mild cognitive impairment, weakness, requiring ongoing IV Diltiazem infusion, IV fluids, cardiac monitoring, pulse oximetry, C. difficile isolation, oral Vancomycin, pulmonary care, acute inpt PT/OT; comorbid patient requires 2 person assist with ADLs, history of CAD, chronic kidney disease per 08/27/2017 Hospitalist progress note.
--- NOTE | 2017-08-27 17:01 | ECHO ---
[email or web address] [address] Main: [phone] Fax: [email or web address] Echocardiogram Name: CAREN ZAVALA MR#: [id number] Study Date: 08/27/2017 Study Time: 09:06 AM Date of : 1930 Age: 87 year(s) Height: 165.1 cm (65 in.) Weight: 66.23 kg (146 lb.) BSA: 1.73 m2 Gender: Male Examination: Echo Indication: tachycardia Image Quality: Adequate Contrast: Requested by: Addy Salecdo BP: 124 mmHg/91 mmHg Heart Rate: Rhythm: Indication: tachycardia Procedure Staff [employer] Manager: Lou Clement Reading Physician: sEau Sinclair Requesting Provider: Conclusions: Normal size left ventricle. Mild concentric LV hypertrophy. Normal global systolic LV function. EF is 63 %. No regional wall motion abnormality. Normal RV function. The left atrium is moderately to severely dilated. There is mild thickening of the mitral valve leaflets. Mild to moderate mitral regurgitation. Mild aortic cusp calcification is noted. Mild aortic valve regurgitation is present. Mild tricuspid regurgitation is present. Right ventricular systolic pressure measures 47mmHg. Pulmonary valve not well visualized. Normal size aortic root measuring 3.3 cm. Measurements: Chambers Valvular Assessment AV/MV Valvular Assessment TV/PV Normal Normal Normal Name Value Range Name Value Range Name Value Range Ao Viridiana (MM): 3.3 cm (2.2 cm-3.7 AV Vmax: 0.98 m/s (1 m/s-1.7 TR Vmax: 3.23 mm/s ( - ) cm) m/s) TR PGmax: 42 mmHg ( - ) IVSd (2D): 1.4 cm (0.6 cm-1.1 AV maxP mmHg ( - ) syst. PAP: 47 mmHg ( - ) cm) LVOT Vmax: 0.88 m/s (0.7 m/s-1.1 PV Vmax: 0.80 m/s (0.6 m/s-0.9 LVDd (2D): 4.2 cm (4.2 cm-5.9 m/s) m/s) cm) MV E Vmax: 0.85 m/s ( - ) PV PGmax: 3 mmHg ( - ) LVDs (2D): 3.0 cm (2.1 cm-4 MV A Vmax: 0.61 m/s ( - ) cm) MV E/A: 1.39 ( - ) LVPWd (2D): 1.2 cm (0.6 cm-1 cm) Patient: CAREN ZAVALA Study Date: 08/27/2017 Page 1 of 2 09:06 AM LVEF (BP): 63 % (>=55 %) RVDd(2D): 3.2 cm (1.9 cm-3.8 cmmm) Continued Measurements: Chambers Valvular Assessment AV/MV Valvular Assessment TV/PV Name Value Name Value Name Value LADs Lon.3 cm MV DecTime: 130 m/s CVP (est.): 5 mmHg LA Area: 27.1 cm2 MV E' Septal: 0.07 m/s LA Volume: 90 ml MV E/E' Septal: 12.50 LA Volume Index: 52.0 ml/m2 MV E/E' Lateral: 8.90 RA Area: 14.0 cm2 Findings: Left Ventricle: Normal size left ventricle. Mild concentric LV hypertrophy. Normal global systolic LV function. EF is 63 %. No regional wall motion abnormality. Grade 2 diastolic dysfunction (pseudonormalized LV filling pattern). Right Ventricle: Normal size right ventricle. Normal RV function. Left Atrium: The left atrium is moderately to severely dilated. Right Atrium: The right atrium is normal in size. Mitral Valve: There is mild thickening of the mitral valve leaflets. There is a bright, calcific focal thickening on the tip of the anterior leaflet. Mild to moderate mitral regurgitation. No mitral stenosis is present. Aortic Valve: The aortic valve is tri-leaflet and functions normally. Mild aortic cusp calcification is noted. Mild aortic valve regurgitation is present. No aortic valve stenosis is present. Tricuspid Valve: The tricuspid valve is normal in appearance and function. Mild tricuspid regurgitation is present. Right ventricular systolic pressure measures 47mmHg. The pulmonary artery pressure is moderately increased. There is a mobile echo noted near the chordea of the TV valve, most likely aberrant chord but cannot rule out vegetation. . Pulmonic Valve: Pulmonary valve not well visualized. Aorta: The aorta is normal. Normal size aortic root measuring 3.3 cm. IVC: The IVC is not well visualized. Pericardium: No pericardial effusion. (No Signature Object) Patient: CAREN ZAVALA Study Date: 08/27/2017 Page 2 of 2 09:06 AM [id number]
[2017-08-27] MEDS: FAMOTIDINE 20 MG TAB PO SCH (18:00)
[2017-08-27] MEDS ORDERED: MELATONIN 3 MG TAB PO ONE (21:30)
--- NOTE | 2017-08-28 02:24 | CPEKG ---
Heart Rate: 92 RR Interval: 652 P-R Interval: 158 QRSD Interval: 134 QT Interval: 436 QTC Interval: 540 P Story: 0 QRS Story: 0 T Wave Story: -2 EKG Severity - ABNORMAL ECG - EKG Impression: SINUS RHYTHM EKG Impression: PROBABLE LEFT ATRIAL ABNORMALITY EKG Impression: RIGHT BUNDLE BRANCH BLOCK Electronically Signed By: Sung Mills 28-Aug-2017 10:05:28
[2017-08-28 09:48] LABS: PLATELET COUNT 194 10^3/uL (150-400)
[2017-08-28] MEDS: guaiFENesin 600 MG TAB.ER PO SCH ×2 (10:24→21:45)
[2017-08-28] MEDS: PSYLLIUM METAMUCIL 1 PKT PO SCH (10:24)
[2017-08-28] MEDS: FERROUS SULFATE 325 MG TAB PO SCH (10:24)
[2017-08-28] MEDS: METOPROLOL TARTRATE 25 MG TAB PO SCH ×2 (10:25→21:45)
[2017-08-28] MEDS: ALLOPURINOL 100 MG TAB PO SCH ×2 (10:26→18:08)
[2017-08-28] MEDS: VANCOMYCIN 125 MG/2.5 ML UDL PO SCH ×2 (10:26→21:43)
[2017-08-28] MEDS: CLOPIDOGREL BISULFATE 75 MG TAB PO SCH (10:26)
[2017-08-28] MEDS: Azelastine/Fluticasone [Dymista Nasal Spray] 1 SPRAY EACHNARE SCH ×2 (10:26→21:18)
[2017-08-28] MEDS: FOLIC ACID 1 MG TAB PO SCH (10:42)
[2017-08-28] MEDS: HEPARIN 5,000 UNIT/0.5 ML SYR SC SCH ×3 (10:55→21:46)
--- NOTE | 2017-08-28 14:26 | HOSPPROG ---
Hospitalist Progress Note Assessment/Plan: 87-year-old male with known prior history of coronary artery disease presented with acute respiratory distress and was found to have a probable acute viral bronchitis with probable left lower lobe pneumonia. 2 days ago he had an SVT which resolved with diltiazem. No complaints of chest pain. Yesterday was quite weak and slow to respond. Today the patient is alert more quick to respond and more appropriate. He has no complaints of chest pain. Troponin has been noted to be still rising without a complaint of chest pain. Rhythms currently stable in sinus rhythm at 70. -SVT 2 days ago now stable in sinus rhythm. Echo shows no wall motion abnormality mild MR AI and TR with mild pulmonary hypertension. -acute viral tracheobronchitis with left lower lobe pneumonia. He is improving and is SA O2 on room air is normal. -chronic kidney disease and probably near his baseline of 1.8-2.0. He appears euvolemic and is taking good oral fluids. -C difficile by history. No stools been obtained at this time for recheck of the C difficile. -mild cognitive impairment: He is much improved today. He is alert interactive and much more aware. -new problem: Troponin elevation currently at 0.347. No complaints of chest pain. ECG ordered echo reviewed and Cardiology has been considered of spoken with Dr. Caroline Muñoz. Will cycle troponins and ECG and if he develops chest pain or worsening troponin level Cardiology will see immediately. Cardiology to see in the morning. -DNR status Plan: Continue cardiac monitoring and his active pulmonary care. He is slowly improving with PT. Disposition: This is dependent on the cardiac workup at this time. Subjective: Alert oriented and walking in the roach. He wants the Martins removed no complaints of chest pain or shortness of breath. Objective: Vital Signs Temp Pulse Resp BP Pulse Ox 36.7 C 105 H 13 158/91 H 97 08/28/17 08:00 08/28/17 08:00 08/28/17 08:00 08/28/17 08:00 08/28/17 08:00 Laboratory Results 08/28/17 09:30 08/28/17 09:30 08/27/17 08/28/17 08/29/17 05:59 05:59 05:59 Intake Total 300 650 Output Total 1100 Balance -800 650 - Time Spent With Patient Time Spent with Patient: greater than 35 minutes Time Spent with Patient: Greater than 35 minutes spent on this patients care, greater than 50% of time spent counseling, educating, and coordinating care regarding the above mentioned plan. - Pending Discharge Pending Discharge Within 24 Hours: No Pending Discharge Within 48 Hours: Yes Pending Discharge Date: 08/30/17 Pending Discharge Time: 11:00 - Physical Exam Constitutional: no apparent distress, chronically ill appearing, other (Elderly and tired in appearance) Eyes: PERRL, anicteric sclera Ears, Nose, Mouth, Throat: moist mucous membranes, no oral mucosal ulcers, hard of hearing, other (He wears hearing aids) Cardiovascular: regular rate and rhythym, systolic murmur Respiratory: no respiratory distress, inspiratory crackles, rhonchi Gastrointestinal: normoactive bowel sounds, soft, non-tender abdomen, no palpable masses Genitourinary: no bladder fullness, other (Martins is in place and will be removed. Bladder scanning will be done if needed) Skin: warm Musculoskeletal: generalized weakness Neurologic: AAOx3, CN II-XII Intact Psychiatric: interacting appropriately, other (He is much more alert and responsive today than yesterday.) ICD10 Worksheet Patient Problems: Problems Problem Status Onset Tachycardia Acute Renal insufficiency Acute Pneumonia Acute Renal failure, chronic Acute Recurrent Clostridium difficile diarrhea Acute Fever and chills Acute Leukocytosis Acute C. difficile diarrhea Acute ~12/17/16 Syncope Acute Acute on chronic renal insufficiency Acute Dehydration Acute Renal failure Acute Mental status change Acute Diverticulitis large intestine Acute Hypotension Acute Diarrhea Acute Vomiting Acute
--- NOTE | 2017-08-28 14:57 | CPEKG ---
Heart Rate: 73 RR Interval: 822 P-R Interval: 308 QRSD Interval: 144 QT Interval: 460 QTC Interval: 507 P Chavies: 30 QRS Chavies: 27 T Wave Chavies: -4 EKG Severity - ABNORMAL ECG - EKG Impression: SINUS RHYTHM EKG Impression: FIRST DEGREE AV BLOCK EKG Impression: RIGHT BUNDLE BRANCH BLOCK Electronically Signed By: Sung Mills 29-Aug-2017 08:50:52
[2017-08-28] MEDS: FAMOTIDINE 20 MG TAB PO SCH (18:08)
[2017-08-28] MEDS: TAMSULOSIN HCL 0.4 MG CAP PO SCH (18:08)
--- NOTE | 2017-08-28 19:34 | GCON ---
[f rep st] CONSULTATION DATE OF CONSULTATION: 08/28/2017 PRIMARY SHOT POLISHER: Dr. Yuri Nunn. CHIEF COMPLAINT: Positive troponin. HISTORY OF PRESENT ILLNESS: We were asked by Dr. Taylor to visit with her. The patient is an 87-year-old male with a history of coronary disease status post remote PCI, 1 episode of paroxysmal atrial fibrillation, chronic renal insufficiency, and valvular heart disease. He also has cognitive impairment and hearing loss. He was admitted on August 26 with sinusitis, productive cough, and found to have bronchitis and pneumonia. He is on antibiotics. Around the time of admission, he did have tachycardia that appears to be SVT. This has resolved. Troponins were checked and were initially borderline, but were repeated and are now 0.3; therefore, I am asked to consult. Upon my evaluation, the patient denies chest pain. He reports that his dyspnea has improved. No lower extremity edema. He cannot give much more history due to cognitive impairment. His daughter is at the bedside and corroborates parts of the history. REVIEW OF SYSTEMS: Unable, due to the patient's cognitive impairment. ALLERGIES: Ibuprofen. CODE STATUS: Do not resuscitate. PAST MEDICAL HISTORY: 1. Coronary disease status post PCI to the obtuse marginal and RCA. 2. SVT and according to the daughter he did have an episode of atrial fibrillation. 3. Anemia. 4. Chronic renal insufficiency. 5. History of C diff colitis. 6. Hypertension. 7. Memory loss. 8. Mitral regurgitation. 9. GERD. 10. Osteoarthritis. 11. History of TIA. 12. Tremor. 13. BPH. 14. Gout. OUTPATIENT MEDICATIONS: Tylenol p.r.n., allopurinol, Norvasc 2.5 mg, calcitriol , Dymista nasal spray, calcium carbonate, Plavix 75 mg daily, ferrous sulfate, folic acid. Losartan, actually has been held. Multivitamin, MiraLAX, psyllium , Zantac, tamsulosin. SOCIAL HISTORY: The patient lives in [facility]. His daughter is at the bedside. FAMILY HISTORY: Not applicable to the current case. PHYSICAL EXAM: VITAL SIGNS: Blood pressure 154/89, heart rate 75. Telemetry sinus rhythm. Oxygen saturation 93% on room air. He is currently afebrile. Respiratory rate 50. GENERAL: This is a frail, elderly male in no acute distress. HEENT: Sclerae clear. Mucous membranes are moist. Normocephalic, atraumatic. CARDIOVASCULAR : JVP less than 10. Regular rate and rhythm with a soft early systolic murmur at the apex. No rub or gallop. LUNGS: Rhonchorous breath sounds at the left lower lobe. Otherwise, no wheezes or rales. ABDOMEN: Soft, nontender, nondistended without bruits, masses, or hepatosplenomegaly. EXTREMITIES: Warm and well perfused without cyanosis, clubbing, or edema. NEURO: He seems hard of hearing. No gross focal neurologic deficits. Seems to have some memory issues. LABORATORY DATA: White count 8.65, hematocrit 27.4, which is slightly lower than what appears to be his baseline. Platelets are 194. Sodium 141, potassium 4, chloride 109, bicarb 18, BUN 34, creatinine 2.6. Troponin has gone from 0.068 to 0.131 yesterday to 0.347 today. Procalcitonin is 0.21, which is slightly elevated. LFTs are normal. Urinalysis shows 2+ protein, 3+ blood, several red cells, 3-5 white cells, negative nitrate and negative leuk esterase. DIAGNOSTIC STUDIES: Admission chest x-ray reviewed by me: Poor inspiratory effort. Mild atelectasis in the left lower lobe versus possible early infiltrate. EKG on the , reviewed by me: SVT at 130 beats per minute. Possibly atrial flutter versus two-to-one atrial tachycardia. Right bundle branch block. EKG today at 1:49 a.m. in the morning: Sinus rhythm with right bundle branch block. EKG today at 1411: Sinus rhythm with right bundle branch block. Echocardiogram this admission: Normal LV systolic function without regional wall motion abnormality. Mild concentric LVH. Normal right ventricular function. Kpkwvjbg-zz-[id number] left atrial dilation. Clhh-zb-jvllvbsp mitral regurgitation, mild aortic regurgitation, mild tricuspid regurgitation with estimated pulmonary pressure 47. ASSESSMENT AND PLAN:: 87-year-old male with history of coronary artery disease status post remote obtuse marginal and RCA stenting, hypertension, chronic renal insufficiency, supraventricular tachycardia in the past. He was admitted with bronchitis and left lower lobe pneumonia. In this setting, he has had paroxysmal supraventricular tachycardia and also a small elevation in his troponin. He is currently hemodynamically stable without complaint of chest pain. His EKG is nonischemic. Echocardiogram without regional wall motion abnormalities and normal ejection fraction. 1. Positive troponin: This is likely a type 2/demand ischemia in the setting of his respiratory infection and intermittent tachycardia. He had been on Inderal in the outpatient setting, but this was stopped and according to his daughter really seemed to improve his mood and overall well-being. Will add very low-dose metoprolol here in the setting of his minimally positive troponin and supraventricular tachycardia. Continue Plavix. I do not think he is a candidate for coronary angiography, given his age, cognitive impairment, relative lack of symptoms, and a creatinine of 2.6. This was discussed with his daughter. 2. Supraventricular tachycardia: He appears to have either atrial tachycardia or possibly atrial flutter on 12-lead EKG on 08/27/2016. Currently in sinus rhythm. We will add very low-dose beta chris. Hold off on anticoagulation other than Plavix and prophylactic-dose heparin for now. 3. Valvular heart disease: Ybwo-bp-qynkihon mitral regurgitation. This is unlikely contributing to his clinical scenario. 4. Respiratory issues with infection/pneumonia per Internal Medicine. Overall , he has apparently improved. He is normoxemic. 5. Chronic renal insufficiency: This would make catheterization high risk. 6. Anemia: Related to his renal insufficiency for the most part. Thank you for allowing us to participate in her care. We will follow with you. /[id number]/MODL MTDD
[2017-08-28] MEDS: MELATONIN 3 MG TAB PO SCH (21:43)
[2017-08-28] MEDS: ACETAMINOPHEN 325 MG TAB PO PRN (21:43)
--- NOTE | 2017-08-29 08:08 | CPEKG ---
Heart Rate: 66 RR Interval: 909 P-R Interval: 320 QRSD Interval: 138 QT Interval: 468 QTC Interval: 491 P Valmy: 63 QRS Valmy: 75 T Wave Valmy: 10 EKG Severity - ABNORMAL ECG - EKG Impression: SINUS ARRHYTHMIA, RATE 46-79 EKG Impression: FIRST DEGREE AV BLOCK EKG Impression: RIGHT BUNDLE BRANCH BLOCK Electronically Signed By: Sung Mills 29-Aug-2017 08:50:43
[2017-08-29 08:34] LABS: PLATELET COUNT 184 10^3/uL (150-400)
[2017-08-29] MEDS: PHENAZOPYRIDINE HCL 200 MG TAB PO SCH ×2 (10:48→20:24)
[2017-08-29] MEDS: ACETAMINOPHEN 325 MG TAB PO PRN (10:49)
[2017-08-29] MEDS: METOPROLOL TARTRATE 25 MG TAB PO SCH ×2 (10:50→20:49)
[2017-08-29] MEDS: FERROUS SULFATE 325 MG TAB PO SCH (10:50)
[2017-08-29] MEDS: guaiFENesin 600 MG TAB.ER PO SCH ×2 (10:50→20:50)
[2017-08-29] MEDS: ALLOPURINOL 100 MG TAB PO SCH ×2 (10:50→20:22)
[2017-08-29] MEDS: PSYLLIUM METAMUCIL 1 PKT PO SCH (10:51)
[2017-08-29] MEDS: FOLIC ACID 1 MG TAB PO SCH (10:51)
[2017-08-29] MEDS: CLOPIDOGREL BISULFATE 75 MG TAB PO SCH (10:51)
--- NOTE | 2017-08-29 16:28 | HOSPPROG ---
Hospitalist Progress Note Assessment/Plan: 87-year-old male with known prior history of coronary artery disease presented with acute respiratory distress and was found to have a probable acute viral bronchitis with probable left lower lobe pneumonia. 2 days ago he had an SVT which resolved with diltiazem. No complaints of chest pain. Troponin has shown elevation and is now declining. Cardiology feels that no intervention is necessary. -SVT 2 days ago now stable in sinus rhythm. Echo shows no wall motion abnormality mild MR AI and TR with mild pulmonary hypertension. Cardiology feels no intervention is necessary or appropriate. -acute viral tracheobronchitis with left lower lobe pneumonia. He is improving and is SA O2 on room air is normal. Respiratory panel has shown coronavirus. no influenza -chronic kidney disease and probably near his baseline of 2.5. . He appears euvolemic and is taking good oral fluids. -C difficile by history. No stools been obtained at this time for recheck of the C difficile. He is in isolation and under treatment for this. -mild cognitive impairment: He is much improved today. He is alert interactive and much more aware. -new problem: Inability to urinate with BPH. In and out catheterization has been attempted but now Martins catheter has been placed. This will have to be evaluated as an outpatient -DNR status Plan: Continue cardiac monitoring and his active pulmonary care. He is slowly improving with PT. Disposition: Discharged to home on August 30: Patient will need outpatient urology follow-up regarding the Martins catheter. Suggest we continue the vancomycin treatment for another 2 weeks for C difficile and the Levaquin for a full 10 day course. Pulmonary garber he is currently much improved Plan was discussed with his daughter and all questions were answered. Time: 50 min Subjective: He is alert and oriented interactive and much stronger today. He is eating well. Patient still cannot spontaneously urinate. Rectal exam shows some enlarged nontender prostate without nodules. Martins catheter has been placed Objective: Vital Signs Temp Pulse Resp BP Pulse Ox 36.9 C 76 19 158/77 H 97 08/29/17 15:20 08/29/17 15:20 08/29/17 15:20 08/29/17 15:20 08/29/17 15:20 Laboratory Results 08/29/17 05:27 08/29/17 05:27 08/28/17 08/29/17 08/30/17 05:59 05:59 05:59 Intake Total 950 1250 750 Output Total 1100 450 750 Balance -150 800 0 - Time Spent With Patient Time Spent with Patient: greater than 35 minutes Time Spent with Patient: Greater than 35 minutes spent on this patients care, greater than 50% of time spent counseling, educating, and coordinating care regarding the above mentioned plan. - Pending Discharge Pending Discharge Within 24 Hours: Yes Pending Discharge Date: 08/30/17 Pending Discharge Time: 11:00 - Physical Exam Constitutional: no apparent distress Eyes: PERRL Ears, Nose, Mouth, Throat: moist mucous membranes Cardiovascular: regular rate and rhythym, no murmur, rub, or gallop, systolic murmur Respiratory: no respiratory distress, inspiratory crackles, rhonchi, other ( Moving much more air than yesterday) Gastrointestinal: normoactive bowel sounds, soft, non-tender abdomen, no palpable masses Genitourinary: no bladder fullness, other (On rectal exam the vault is empty but he has significant of enlarged prostate which is nontender without nodules) Skin: warm Musculoskeletal: full muscle strength, other (Reduced muscle strength overall but consistent for his age.) Neurologic: AAOx3, CN II-XII Intact Psychiatric: interacting appropriately ICD10 Worksheet Patient Problems: Problems Problem Status Onset Pneumonia Acute Renal failure, chronic Acute Acute on chronic renal insufficiency Acute C. difficile diarrhea Acute ~12/17/16 Dehydration Acute Diarrhea Acute Diverticulitis large intestine Acute Fever and chills Acute Hypotension Acute Leukocytosis Acute Mental status change Acute Recurrent Clostridium difficile diarrhea Acute Renal failure Acute Renal insufficiency Acute Syncope Acute Tachycardia Acute Vomiting Acute
[2017-08-29] MEDS: HEPARIN 5,000 UNIT/0.5 ML SYR SC SCH ×3 (19:00→20:50)
[2017-08-29] MEDS: Azelastine/Fluticasone [Dymista Nasal Spray] 1 SPRAY EACHNARE SCH ×2 (19:51→20:50)
[2017-08-29] MEDS: VANCOMYCIN 125 MG/2.5 ML UDL PO SCH ×2 (19:52→20:49)
[2017-08-29] MEDS: FAMOTIDINE 20 MG TAB PO SCH (20:22)
[2017-08-29] MEDS: MELATONIN 3 MG TAB PO SCH (20:50)
[2017-08-30] MEDS: ACETAMINOPHEN 325 MG TAB PO PRN ×2 (01:06→20:34)
[2017-08-30] MEDS: HEPARIN 5,000 UNIT/0.5 ML SYR SC SCH ×4 (06:22→22:27)
[2017-08-30] MEDS: CALCITRIOL 0.25 MCG CAP PO SCH (08:31)
[2017-08-30] MEDS: PHENAZOPYRIDINE HCL 200 MG TAB PO SCH ×2 (08:31→14:04)
[2017-08-30] MEDS: guaiFENesin 600 MG TAB.ER PO SCH ×2 (08:32→20:34)
[2017-08-30] MEDS: FOLIC ACID 1 MG TAB PO SCH (08:32)
[2017-08-30] MEDS: FERROUS SULFATE 325 MG TAB PO SCH (08:32)
[2017-08-30] MEDS: ALLOPURINOL 100 MG TAB PO SCH ×2 (08:32→18:22)
[2017-08-30] MEDS: CLOPIDOGREL BISULFATE 75 MG TAB PO SCH (08:32)
[2017-08-30] MEDS: Azelastine/Fluticasone [Dymista Nasal Spray] 1 SPRAY EACHNARE SCH ×2 (08:33→20:34)
[2017-08-30] MEDS: VANCOMYCIN 125 MG/2.5 ML UDL PO SCH ×2 (08:33→20:34)
[2017-08-30] MEDS: PSYLLIUM METAMUCIL 1 PKT PO SCH (08:33)
[2017-08-30] MEDS: METOPROLOL TARTRATE 25 MG TAB PO SCH ×2 (08:35→20:33)
--- NOTE | 2017-08-30 10:44 | PDIAF ---
- Diagnosis Diagnosis: viral bronchitis/pna Code Status: Do Not Resuscitate - Medication Management Discharge Medications: Medications to Continue on Transfer Acetaminophen [Tylenol 325mg (*)] 650 mg PO Q6HRS PRN 08/04/17 [Last Taken Unknown] Allopurinol [Allopurinol 100 MG (*)] 100 mg PO BID@0730,18308/04/17 [Last Taken Unknown] Azelastine/Fluticasone [Dymista Nasal [place]] 1 spray EACHNARE BID 08/04/17 [ Last Taken Unknown] Calcitriol [Calcitriol (*)] 0.25 mcg PO MWF 08/04/17 [Last Taken Unknown] Calcium Carbonate [Tums 500MG (*)] 500 mg PO DAILY PRN 08/04/17 [Last Taken Unknown] Clopidogrel Bisulfate [Plavix (*)] 75 mg PO DAILY 08/04/17 [Last Taken Unknown] Ferrous Sulfate [Ferrous Sulf 325 MG (*)] 325 mg PO DAILY 08/04/17 [Last Taken Unknown] Polyethylene Glycol 3350 [Miralax 17 gm (*)] 17 gm PO DAILY PRN 08/04/17 [Last Taken Unknown] Psyllium Husk (with Sugar) [Metamucil Packet] 1 each PO DAILY 08/04/17 [Last Taken Unknown] Ranitidine HCl [Zantac] 300 mg PO DAILY@182908/04/17 [Last Taken Unknown] Tamsulosin HCl [Flomax 0.4 MG (*)] 0.4 mg PO Q48H 08/04/17 [Last Taken 08/24/17] amLODIPine BESYLATE [Norvasc 2.5 mg (*)] 2.5 mg PO DAILY@182908/04/17 [Last Taken 08/25/17] Herbals/Supplements -Info Only 1 ea PO DAILY 08/05/17 [Last Taken Unknown] Multivitamins [Multivitamin (*)] 1 each PO DAILY 08/05/17 [Last Taken Unknown] FOLIC ACID 0.4 mg PO DAILY 08/26/17 [Last Taken Unknown] Melatonin [Melatonin 3 MG (*)] 3 mg PO HS #30 tab 08/30/17 [Last Taken Unknown] Metoprolol Tartrate [Lopressor 25 mg (*)] 12.5 mg PO BID #60 tab 01/15/18 [Last Taken Unknown] Vancomycin [Vancocin Oral Liquid] 125 mg PO BID #10 udl 08/30/17 [Last Taken Unknown] guaiFENesin [Mucinex 600 MG (*)] 1,200 mg PO BID #60 tab.er 08/30/17 [Last Taken Unknown] levOFLOXACIN [levAQUIN (*)] 500 mg PO Q2D@1000 #2 tab 08/30/17 [Last Taken Unknown] Discharge Medications: Refer to the Discharge Home Medication list for PRN reason. - Orders Services needed: Home Care, Registered Nurse Home Care Face to Face: I certify that this patient was under my care and that I had the required [id number] encounter meeting the encounter requirements on the discharge day. My findings support the fact that the patient is homebound as defined in Home Care Face to Face Continued: CMS Chapter 7 Medicare Benefits Manual 30.1.1 , The condition of the patient is such that there exists a normal inability to leave home and consequently, leaving home would require a considerable and taxing effort. Isolation Type: Droplet Isolation Diet Recommendation: no restrictions on diet Diet Texture: Regular Texture Diet Martins: Yes - Follow Up Care Current Providers and Referrals: Jovani Kenyon MD [Primary Care Provider] - As per Instructions
--- NOTE | 2017-08-30 12:32 | PDIAF ---
- Diagnosis Diagnosis: viral bronchitis/pna Code Status: Do Not Resuscitate - Medication Management Discharge Medications: Medications to Continue on Transfer Acetaminophen [Tylenol 325mg (*)] 650 mg PO Q6HRS PRN 08/04/17 [Last Taken Unknown] Allopurinol [Allopurinol 100 MG (*)] 100 mg PO BID@0730,18308/04/17 [Last Taken Unknown] Azelastine/Fluticasone [Dymista Nasal [place]] 1 spray EACHNARE BID 08/04/17 [ Last Taken Unknown] Calcitriol [Calcitriol (*)] 0.25 mcg PO MWF 08/04/17 [Last Taken Unknown] Calcium Carbonate [Tums 500MG (*)] 500 mg PO DAILY PRN 08/04/17 [Last Taken Unknown] Clopidogrel Bisulfate [Plavix (*)] 75 mg PO DAILY 08/04/17 [Last Taken Unknown] Ferrous Sulfate [Ferrous Sulf 325 MG (*)] 325 mg PO DAILY 08/04/17 [Last Taken Unknown] Polyethylene Glycol 3350 [Miralax 17 gm (*)] 17 gm PO DAILY PRN 08/04/17 [Last Taken Unknown] Psyllium Husk (with Sugar) [Metamucil Packet] 1 each PO DAILY 08/04/17 [Last Taken Unknown] Ranitidine HCl [Zantac] 300 mg PO DAILY@182908/04/17 [Last Taken Unknown] Tamsulosin HCl [Flomax 0.4 MG (*)] 0.4 mg PO Q48H 08/04/17 [Last Taken 08/24/17] amLODIPine BESYLATE [Norvasc 2.5 mg (*)] 2.5 mg PO DAILY@182908/04/17 [Last Taken 08/25/17] Herbals/Supplements -Info Only 1 ea PO DAILY 08/05/17 [Last Taken Unknown] Multivitamins [Multivitamin (*)] 1 each PO DAILY 08/05/17 [Last Taken Unknown] FOLIC ACID 0.4 mg PO DAILY 08/26/17 [Last Taken Unknown] Melatonin [Melatonin 3 MG (*)] 3 mg PO HS #30 tab 08/30/17 [Last Taken Unknown] Metoprolol Tartrate [Lopressor 25 mg (*)] 12.5 mg PO BID #60 tab 01/15/18 [Last Taken Unknown] Vancomycin [Vancocin Oral Liquid] 125 mg PO BID #10 udl 08/30/17 [Last Taken Unknown] guaiFENesin [Mucinex 600 MG (*)] 1,200 mg PO BID #60 tab.er 08/30/17 [Last Taken Unknown] levOFLOXACIN [levAQUIN (*)] 500 mg PO Q2D@1000 #2 tab 08/30/17 [Last Taken Unknown] Discharge Medications: Refer to the Discharge Home Medication list for PRN reason. - Orders Services needed: Home Care, Registered Nurse Home Care Face to Face: I certify that this patient was under my care and that I had the required [id number] encounter meeting the encounter requirements on the discharge day. My findings support the fact that the patient is homebound as defined in Home Care Face to Face Continued: CMS Chapter 7 Medicare Benefits Manual 30.1.1 , The condition of the patient is such that there exists a normal inability to leave home and consequently, leaving home would require a considerable and taxing effort. Diet Recommendation: no restrictions on diet Diet Texture: Regular Texture Diet Martins: Yes - Follow Up Care Current Providers and Referrals: Jovani Kenyon MD [Primary Care Provider] - As per Instructions Franny Cazares MD [Medical Doctor] - Esau Carpio MD [Medical Doctor] -
--- NOTE | 2017-08-30 15:50 | HOSPPROG ---
Hospitalist Progress Note Assessment/Plan: 87-year-old male admitted with acute respiratory distress 2/2 viral bronchitis with probable left lower lobe pneumonia. Cardiology feels that no intervention is necessary. # acute hypoxic respiratory failure- secondary to acute viral bronchitis and presumed left lower lobe pneumonia- resolved Oxygen saturations 92% on room air - continue supportive care # acute SVT - now stable in sinus rhythm. Echo (reviewed) shows no WMA mild MR AI and TR with mild pulmonary hypertension. Cardiology feels no intervention is necessary or appropriate- telemetry( personally reviewed and interpreted) sinus - continue new metoprolol twice daily # acute viral tracheobronchitis with left lower lobe pneumonia-Respiratory panel has shown coronavirus - continue supportive care # CKD stage IV- creatinine at his baseline of 2.5 - continue renally dosing medications # history of C diff colitis- continue prophylaxis with p.o. vancomycin while on antibiotics # mild cognitive impairment- appears per baseline # acute urinary obstruction- known prostatic hypertrophy- Martins catheter placed - family wants to keep Martins for now secondary to pain with straight cathing - increasing tamsulosin to daily - outpatient Urology follow-up #DNR status # disposition-greater than 2 midnights as the patient remains acutely ill requiring monitoring and supportive care I have discussed the case with the RN- patient remains weak and unstable for discharge home with nursing assist Subjective: Exhausted Objective: Vital Signs Temp Pulse Resp BP Pulse Ox 36.4 C 64 16 171/84 H 98 08/30/17 11:43 08/30/17 11:43 08/30/17 11:43 08/30/17 11:43 08/30/17 11:43 Laboratory Results 08/29/17 05:27 08/29/17 05:27 08/29/17 08/30/17 08/31/17 05:59 05:59 05:59 Intake Total 1250 750 Output Total 450 2300 Balance 800 -1550 - Physical Exam Constitutional: no apparent distress, chronically ill appearing Eyes: anicteric sclera Ears, Nose, Mouth, Throat: moist mucous membranes Cardiovascular: regular rate and rhythym Respiratory: no respiratory distress Gastrointestinal: normoactive bowel sounds Genitourinary: no bladder fullness Skin: warm Musculoskeletal: full muscle strength Neurologic: No AAOx3 Psychiatric: interacting appropriately, poor memory Lymph, Heme, Immunologic: no cervical LAD ICD10 Worksheet Patient Problems: Problems Problem Status Onset Pneumonia Acute Renal failure, chronic Acute chronic disease mgmt/transitional care Acute Acute on chronic renal insufficiency Acute C. difficile diarrhea Acute ~12/17/16 Dehydration Acute Diarrhea Acute Diverticulitis large intestine Acute Fever and chills Acute Hypotension Acute Leukocytosis Acute Mental status change Acute Recurrent Clostridium difficile diarrhea Acute Renal failure Acute Renal insufficiency Acute Syncope Acute Tachycardia Acute Vomiting Acute
[2017-08-30] MEDS: TAMSULOSIN HCL 0.4 MG CAP PO SCH (16:05)
[2017-08-30] MEDS: FAMOTIDINE 20 MG TAB PO SCH (18:22)
[2017-08-30] MEDS: MELATONIN 3 MG TAB PO SCH (20:34)
[2017-08-31] MEDS: HEPARIN 5,000 UNIT/0.5 ML SYR SC SCH ×2 (05:30→13:41)
[2017-08-31 09:57] VITALS: BP 170/78; RESP 18; TEMP 97.6; O2SAT 94
--- NOTE | 2017-08-31 09:58 | PDIAF ---
- Diagnosis Diagnosis: viral bronchitis/pna Code Status: Do Not Resuscitate - Medication Management Discharge Medications: Medications to Continue on Transfer Acetaminophen [Tylenol 325mg (*)] 650 mg PO Q6HRS PRN 08/04/17 [Last Taken Unknown] Allopurinol [Allopurinol 100 MG (*)] 100 mg PO BID@0730,1830 08/04/17 [Last Taken Unknown] Azelastine/Fluticasone [Dymista Nasal [place]] 1 spray EACHNARE BID 08/04/17 [ Last Taken Unknown] Calcitriol [Calcitriol (*)] 0.25 mcg PO MWF 08/04/17 [Last Taken Unknown] Calcium Carbonate [Tums 500MG (*)] 500 mg PO DAILY PRN 08/04/17 [Last Taken Unknown] Clopidogrel Bisulfate [Plavix (*)] 75 mg PO DAILY 08/04/17 [Last Taken Unknown] Ferrous Sulfate [Ferrous Sulf 325 MG (*)] 325 mg PO DAILY 08/04/17 [Last Taken Unknown] Polyethylene Glycol 3350 [Miralax 17 gm (*)] 17 gm PO DAILY PRN 08/04/17 [Last Taken Unknown] Psyllium Husk (with Sugar) [Metamucil Packet] 1 each PO DAILY 08/04/17 [Last Taken Unknown] Ranitidine HCl [Zantac] 300 mg PO DAILY@182908/04/17 [Last Taken Unknown] amLODIPine BESYLATE [Norvasc 2.5 mg (*)] 2.5 mg PO DAILY@182908/04/17 [Last Taken 08/25/17] Herbals/Supplements -Info Only 1 ea PO DAILY 08/05/17 [Last Taken Unknown] Multivitamins [Multivitamin (*)] 1 each PO DAILY 08/05/17 [Last Taken Unknown] FOLIC ACID 0.4 mg PO DAILY 08/26/17 [Last Taken Unknown] Melatonin [Melatonin 3 MG (*)] 3 mg PO HS #30 tab 08/30/17 [Last Taken Unknown] Metoprolol Tartrate [Lopressor 25 mg (*)] 12.5 mg PO BID #60 tab 08/30/17 [Last Taken Unknown] Vancomycin [Vancocin Oral Liquid] 125 mg PO BID #10 udl 08/30/17 [Last Taken Unknown] guaiFENesin [Mucinex 600 MG (*)] 1,200 mg PO BID #60 tab.er 08/30/17 [Last Taken Unknown] levOFLOXACIN [levAQUIN (*)] 500 mg PO Q2D@1000 #2 tab 08/30/17 [Last Taken Unknown] Tamsulosin HCl [Flomax 0.4 MG (*)] 0.4 mg PO DAILY cap 08/31/17 [Last Taken Unknown] Discharge Medications: Refer to the Discharge Home Medication list for PRN reason. - Orders Services needed: Home Care, Registered Nurse, Physical Therapy, Occupational Therapy Home Care Face to Face: I certify that this patient was under my care and that I had the required [id number] encounter meeting the encounter requirements on the discharge day. My findings support the fact that the patient is homebound as defined in Home Care Face to Face Continued: CMS Chapter 7 Medicare Benefits Manual 30.1.1 , The condition of the patient is such that there exists a normal inability to leave home and consequently, leaving home would require a considerable and taxing effort. Diet Recommendation: no restrictions on diet Diet Texture: Regular Texture Diet Martins: Yes - Follow Up Care Current Providers and Referrals: Jovani Kenyon MD [Primary Care Provider] - As per Instructions Franny Cazares MD [Medical Doctor] - Esau Carpio MD [Medical Doctor] -
--- NOTE | 2017-08-31 10:14 | ASMTCMCOM ---
CM Note CM Note Notes: CM met w/ pt and daughter for dispo planning. The plan is for pt to return back to [facility] w/ [facility], PT, OT, RN. Pt will continue to receive 8hrs of caregiving. CM faxed d/c orders to [facility] and [facility]. CM available for changes. Plan: [facility], 8hrs of caregiving and [facility], RN, PT, OT Date Signed: 08/31/2017 10:13 AM Electronically Signed By:MAXWELL Carter
[2017-08-31] MEDS: METOPROLOL TARTRATE 25 MG TAB PO SCH (12:30)
[2017-08-31] MEDS: PSYLLIUM METAMUCIL 1 PKT PO SCH (12:30)
[2017-08-31] MEDS: guaiFENesin 600 MG TAB.ER PO SCH (12:30)
[2017-08-31] MEDS: FOLIC ACID 1 MG TAB PO SCH (12:30)
[2017-08-31] MEDS: FERROUS SULFATE 325 MG TAB PO SCH (12:30)
[2017-08-31] MEDS: CLOPIDOGREL BISULFATE 75 MG TAB PO SCH (12:30)
[2017-08-31] MEDS: VANCOMYCIN 125 MG/2.5 ML UDL PO SCH (12:30)
[2017-08-31] MEDS: ALLOPURINOL 100 MG TAB PO SCH (12:30)
[2017-08-31] MEDS: TAMSULOSIN HCL 0.4 MG CAP PO SCH (12:30)
[2017-08-31 12:35] VITALS: PULSE 75
[2017-08-31] MEDS: Azelastine/Fluticasone [Dymista Nasal Spray] 1 SPRAY EACHNARE SCH (13:39)
--- NOTE | 2017-08-31 14:59 | ASDISCHSUM ---
Discharge Information Plan Status:Home with Home Health Medically Cleared to Leave:08/30/2017 Discharge Date:08/31/2017 02:56 PM CM D/C Disposition: ADT D/C Disposition:Home, Routine, Self-Care Projected Discharge Date:08/31/2017 11:00 AM Transportation at D/C: Discharge Delay Reason: Follow-Up Date:08/31/2017 11:00 AM Discharge Slot: Final Diagnosis: Placement Information Referral Type:*Home Health Care Services Referral ID:[id number] Provider Name:[facility] Address 1:[address] Phone Number: Address 2: Fax Number: City:[place] Selection Factors: State:[place] Patient Contact Information Contact Name:YAIR Relationship:Daughter Address:[address] City:[facility] Phone: State/Zip Code:[place] [address] Email: Financial Information Financial Class: Primary Plan Desc:MEDICARE INPATIENT Primary Plan Number:[id number] Secondary Plan Desc:[facility] Secondary Plan Number:[id number] Assessment Information LACE LACE Comorbidities - select Answers: Dementia all that apply Moderate or severe liver disease or renal disease Emergency dept visits in Answers: 4+ last 6 months Score: 11 Date Signed: 08/26/2017 12:56 PM Electronically Signed By:Gabrielle Biswas RN [facility] Initial CM Assessment Living Arrangements What is your living Answers: Alone arrangement? Who do you live with? Type Of Residence What kind of residence do Answers: House you live in? Discharge Plan Comments Coordination Status Comments Notes: CM spoke w/ MARIAJOSE Perera regarding d/c POC. Pt is a 87 y/o man admitted for pneumonia, dehydration and weakness. Pt lives at [facility]. Pt has a supportive daughter name Qi. Therapies have been ordered and awaiting recommendations. Needs at [facility] at this time. CM to follow. Plan: [facility] Date Signed: 08/27/2017 09:51 AM Electronically Signed By:MAXWELL Carter [facility] CM Progress Note CM Note CM Note Notes: CM met w/ pt and daughter for dispo planning. CM informed pt of therapies recommendations. Daughter is hoping that pt can return to [facility]. Pt receives 8 hours of caregiving along w/ supportive staff at facility. Daughter reports that pt is current w/ [facility]. CM sent updates to [facility]. CM to follow for d/c needs. [facility] Date Signed: 08/27/2017 03:02 PM Electronically Signed By:MAXWELL Carter Case Management Discharge Plan Note Case Management Discharge Discharge Order Complete? Answers: Yes Patient to Obtain Answers: via Family Medications Transportation Arranged Answers: Family/Friends Faxed Final Orders Answers: Yes Family Notified Answers: Yes Discharge Comments Notes: Patient discharged to [facility]. He is transported by his daughter and caregiver. He has a private pay caregiver from [facility] daily, and then his daughter comes to him. He also has homecare through [facility], and I have sent them resumption of care orders. Date Signed: 08/30/2017 11:41 AM Electronically Signed By:Florinda Cowart RN [facility] CM Progress Note CM Note CM Note Notes: CM met w/ pt and daughter for dispo planning. The plan is for pt to return back to [facility] w/ [facility], PT, OT, RN. Pt will continue to receive 8hrs of caregiving. CM faxed d/c orders to [facility] and [facility]. CM available for changes. Plan: [facility], 8hrs of caregiving and [facility], RN, PT, OT Date Signed: 08/31/2017 10:13 AM Electronically Signed By:MAXWELL Carter Intervention Information Intervention Type:*ECHOLS-Signed Date of Service:08/27/2017 03:56 PM Patient Type:Inpatient Staff Member:Vibha Bragg Hours: Discipline: Severity: Comment: Intervention Type:*IM-Signed Date of Service:08/30/2017 12:09 PM Patient Type:Inpatient Staff Member:Vibha Bragg Hours: Discipline: Severity: Comment: Intervention Type:*IM-Signed Date of Service:08/31/2017 10:17 AM Patient Type:Inpatient Staff Member:Vibha Bragg Hours: Discipline: Severity: Comment:
--- NOTE | 2017-08-31 23:53 | GDS ---
[f rep st] DISCHARGE SUMMARY DISCHARGE DIAGNOSES: 1. Acute coronavirus pulmonary infection. 2. Acute left lower lobe pneumonia. 3. Chronic kidney disease. 4. Acute urinary obstruction secondary to benign prostatic hypertrophy discharged with indwelling Fo stefany. 5. History of Clostridium difficile colitis, discharged oral prophylaxis. 6. Dementia. 7. Transient supraventricular tachycardia. HISTORY OF PRESENT ILLNESS: This is an 87-year-old male, who presents to the hospital with complaint s of shortness of breath and weakness. For details of the patient's initial presentation, please see the history and physical dated 08/27/2017. CONSULTATIVE SERVICES: Nephrology, Cardiology. HOSPITAL COURSE BY ISSUE: 1. Acute hypoxic respiratory failure secondary to acute viral upper respiratory infection and presum ed bacterial pneumonia. Patient was initiated on supportive treatment, as well as oral antibiotics t o treat both presumed pathogens in his lung. Patient was weaned off oxygen prior to disposition and will complete his full 7-day course for bacterial pneumonia in the outpatient setting. 2. Acute coronavirus infection. Patient received supportive care to where his symptoms had improved by the day of disposition. 3. Acute left lower lobe pneumonia. Patient was initiated on IV antibiotics and transitioned to ora l levofloxacin. He is being discharged with 2 tablets to complete of his oral levofloxacin. 4. History of C difficile colitis. Patient was initiated on p.o. vancomycin prophylaxis while on br oad-spectrum treatment for pneumonia. 5. SVT. SVT was transient. Patient was seen by Cardiology and did not feel that additional workup was necessary. He did convert out of this rhythm and had normal heart rates on his chronic home medi cations with the addition of low-dose metoprolol. He will be discharged on this metoprolol ongoing. 6. Hypertension. Patient had his losartan exchanged for metoprolol inpatient. On this new medicati on, blood pressures were stable. We did not feel that he could tolerate an additional antihypertensi ve agent at disposition. He can be evaluated by his primary care and Nephrology in the outpatient se tting for an opportunity to add back an HAZEL or ARB per his CKD. 7. Chronic kidney disease. This remained stable. His outpatient soccer player did see him while in the hospital. She will continue to follow in the outpatient setting. 8. Acute urinary retention. Patient underwent several straight catheterizations, which were incredi roma painful for him. Per the request of the patient and family, an indwelling Martins catheter was fatoumata germán and remains on the day of disposition. They understand the risks of complicated infection and shine ve chosen those risks over potential discomfort of straight catheterization. We have increased the p ramon's tamsulosin from q.48 hours to q. day and asked that he be seen by Urology in the next 1-2 we eks for post discharge evaluation of his Martins catheter and hopeful attempt at removal. MEDICATIONS AT THE TIME OF DISPOSITION: Please reference med rec printed on 08/31/2017. FOLLOWUP APPOINTMENTS: With both Nephrology and Urology in the next 1-2 weeks. TIME SPENT: I spent greater than 30 minutes in the planning and coordination of this discharge. /[id number]/MODL
== END 2017-08-31 14:56 | disposition home or self-care (01) | DRG 177 ==
LOC: EDUNIT# → F3N 17:11 → F2W 22:17 → OBSVTOIN 08-27 15:35
PROVIDERS: ADMIT Student in an Organized Health Care Education/Training Program; ATTEND Student in an Organized Health Care Education/Training Program
DX: J15.8 Pneumonia due to other specified bacteria (principal); J96.01 Acute respiratory failure with hypoxia; I47.1 Supraventricular tachycardia; B97.29 Other coronavirus as the cause of diseases classified elsewhere; I12.9 Hypertensive chronic kidney disease with stage 1 through stage 4 chronic kidney disease, or unspecified chronic kidney disease; N18.4 Chronic kidney disease, stage 4 (severe); N40.1 Benign prostatic hyperplasia with lower urinary tract symptoms; F03.90 Unspecified dementia, unspecified severity, without behavioral disturbance, psychotic disturbance, mood disturbance, and anxiety; R33.8 Other retention of urine; D63.1 Anemia in chronic kidney disease; Z66 Do not resuscitate; Z95.5 Presence of coronary angioplasty implant and graft
CPT/HCPCS: 97110-GP; 97116-GP; 97162-GP; 97166-GO; 97530-GP; 97535-GO; G0378; G8978-GP-CM; G8979-GP-CK; G8987-GO-CM; G8988-GO-CK; J1956